=== PATIENT | male | born 1965 | race Caucasian/White ===

== ENCOUNTER 2018-06-11 06:00 | Inpatient (IN) | payer OTHER ==
[2018-06-07 11:23] LABS: BASOPHIL # 0.1 10^3/uL (0.0-0.1); BASOPHIL % 0.8 % (0.0-0.2); EOSINOPHIL # 0.7 10^3/uL (0.0-0.2); EOSINOPHIL % 8.8 % (0.0-5.0); LYMPHOCYTES % 35.3 % (24.0-44.0); MEAN CELL HGB 30.2 pg (26-34); MEAN CELL HGB CONCENTRATION 34.6 g/dL (33-37); MEAN CORP VOLUME 87.3 fL (78-100); MEAN PLATELET VOLUME 9.9 fL (7.8-11.0); MONOCYTES # 0.6 10^3/uL (0.3-0.8); MONOCYTES % 7.1 % (5.0-12.0); NEUTROPHIL # 3.9 10^3/uL (1.8-7.7); NEUTROPHILS % 46.7 % (41.0-85.0); RED CELL DISTRIBUTION WIDTH 13.4 % (11.5-14.5); WHITE BLOOD CELL 8.4 10^3/uL (4.5-11.0)
[2018-06-07 11:44] LABS: CALCIUM 9.3 mg/dL (8.4-10.5); CARBON DIOXIDE 28.6 mmol/L (20.0-32)
[2018-06-07 11:46] VITALS: BP 116/88
[2018-06-11] VITALS (46 sets, daily range): BP systolic 111–174; BP diastolic 77–100
[~2018-06-11] VITALS: Ht 175.3 cm; Wt 90.7 kg
[~2018-06-11 06:00] MED LIST: ACET500T73 PO; ALPR0.25 PO; CLON0.1T PO; CRAN400C PO; DOCU-123 PO; FURO-81 PO; GABA300C10 PO; GUAI-59 PO; INSU100V35 SUBCUT; INSU100V5 IJ; LEVE500T54 PO; LOPE1LIQ PO; LOPE2TAB27 PO; MAGN2400 PO; MEFOXIN ONE; MELO15TA24 PO; MOVIPREP POWDER PACKET PO STA; NA P133E2 RC; NS 100ML 100 ML IV ONE; OMEP20TA9 PO; RISP0.5T24 PO; SERT50TA PO; TIZA4TAB PO; [UNRECOGNIZED DRUG - CODE] PO; [UNRECOGNIZED DRUG - CODE] PO
[2018-06-11] MEDS ORDERED: CYCL10TA2 PO (06:31)
[2018-06-11] MEDS ORDERED: ERYT250C8 PO (06:31)
[2018-06-11] MEDS: LACTATED RINGERS 1,000 ML IV SCH (06:40)
[2018-06-11] MEDS ORDERED: LOVENOX SQ ONE (06:45)
[2018-06-11] MEDS ORDERED: NEOSTIGMINE ONE (06:46)
[2018-06-11] MEDS ORDERED: TORADOL ONE (06:46)
[2018-06-11] MEDS ORDERED: DECADRON ONE (06:46)
[2018-06-11] MEDS ORDERED: ZOFRAN ONE (06:46)
[2018-06-11] MEDS ORDERED: ZEMURON IV ONE (06:46)
[2018-06-11] MEDS ORDERED: DIPRIVAN IV ONE (06:47)
[2018-06-11] MEDS ORDERED: SUBLIMAZE ONE (06:47)
[2018-06-11] MEDS ORDERED: DILAUDID ONE (06:47)
[2018-06-11] MEDS ORDERED: VERSED ONE (06:48)
[2018-06-11] MEDS ORDERED: LIDOCAINE 2% VIAL ONE (06:48)
[2018-06-11] MEDS ORDERED: SODIUM CHLORIDE IR ONE (07:00)
[2018-06-11] MEDS ORDERED: SENSORCAINE-MPF 0.25% VIAL ONE (07:01)
[2018-06-11] MEDS ORDERED: WATER ONE ×4 (07:01→11:04)
[2018-06-11] MEDS ORDERED: TRANDATE IV ONE (07:22)
[2018-06-11] MEDS ORDERED: SODIUM CHLORIDE IRR BAG 1,000 ML ONE (08:41)
[2018-06-11] MEDS ORDERED: NS 100ML 100 ML IV ONE (10:34)
[2018-06-11] MEDS ORDERED: MEFOXIN ONE (10:34)
[2018-06-11] MEDS: MEFOXIN 1 GM in NS 100ML 100 ML IV SCH ×3 (12:00→23:28)
[2018-06-11] MEDS ORDERED: TYLENOL PO PRN ×2 (12:00→17:00)
[2018-06-11] MEDS ORDERED: MORPHINE SULFATE IV PRN (12:00)
[2018-06-11] MEDS ORDERED: NS 1000ML 1,000 ML ONE (12:08)
[2018-06-11] MEDS ORDERED: BENADRYL IV PRN (12:30)
[2018-06-11] MEDS ORDERED: ZOFRAN IV PRN (12:30)
[2018-06-11] MEDS ORDERED: PHENERGAN IV PRN (12:30)
[2018-06-11] MEDS: DILAUDID IV PRN ×2 (12:46→12:54)
[2018-06-11] MEDS: D5W-1/2 NS/KCL 20MEQ 1,000 ML IV SCH ×2 (15:36→20:49)
--- NOTE | 2018-06-11 16:15 | NUR ---
AMBULATION PATIENT ASSISTED OUT OF BED WITH ONE PERSON ASSIST. PATIENT AMBULATED TO [facility] WITH USE OF WALKER. GAIT WEAK AND UNSTEADY. PATIENT HAD RECTAL BLOOD DRAINAGE. PATIENT PASSED 200CC OF BLOOD. PATIENT STATED BEING DIZZY. BP 143/93 HR 103. PATIENT ASSISTED BACK INTO BED, HOB ELEVATED 30 DEGREES. CALL LIGHT WITHIN EASY REACH. DR. PIEDRA NOTIFIED OF AMT OF RECTAL BLOOD DRAINAGE. NO NEW ORDERS AT THIS TIME, MD STATED EXPECTED AFTER PATIENTS PROCEDURE.
[2018-06-11] MEDS ORDERED: ATIVAN IM PRN (17:00)
[2018-06-11] MEDS ORDERED: DEXTROSE 50%-WATER SYRINGE IV PRN (17:00)
--- NOTE | 2018-06-11 17:15 | PCM.HP ---
History of Present Illness Reason for Visit: S/P reversal of colostomy History of Present Illness Patient is a 52 PMH of DM, HTN, Seizure disorder, GERD, Generalized Anxiety Disorder, who presents s/p reversal of colostomy today with Dr. Aragon. Patient had unfortunate accident 2 years ago and sustained back/neck injury following a fall. Patient following accident was temporarily paraplegic and had Neck/Back surgery for symptoms. Patient underwent Colostomy 2/2 incontinence from injury. Over the last two years, patient has improved Neurologically and is even able to stand and ambulate with assistance. Patient underwent Exploratory Lap and reversal of Colostomy today with Dr. Aragon. Patient is in no distress during my evaluation @ bedside. He has pain but very mild, he feels it is currently well controlled. His vitals are stable. He has dressing over abdominal wounds previous ostomy. MAGNOLIA drain in place x 1. Medicine team consulted for medical management of DM, seizure disorder and Psychiatric Illness. Medications reconciled. 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 PLASMA: Periperal Neuropathy, Seizure, Other (Hx of Paraplegia (markedly improved) ) GI: GERD Hepatobiliary: Hep A/B/C Psychiatric: Anxiety, Other (chronic communication deficit, hx of violent behavior) Musculoskeletal: Chronic Low Back Pain Endocrine: Diabetes Past Surgical History: Other (Back/neck, Colostomy, Reversal of Colostomy, Ex lap, skin cancer removal x 2) Past Social History Smoke: No Alcohol: other (heavy drinker in past but quit 2 years ago) Drugs: Other (Hx of Smoking methamphetamine, quit 2-3 years ago) Travel Hx EBOLA RISK:Travel to/contact w: No Review of Systems Constitutional: No: Fever, Chills Eyes: No: Conjunctivae inflammation, Eyelid inflammation ENT: No: Nose discharge, Nose congestion Respiratory: No: Cough, Shortness of breath, SOB with excertion, Wheezing Cardiovascular: No: Chest Pain, Palpitations, Edema Gastrointestinal: Abdominal Pain; No: Nausea, Vomiting Genitourinary: No Hematuria, No Retention Musculoskeletal: neck pain, back pain Skin: Rash; No: Lesions, Jaundice, Bruising Neurological: No: Weakness, Numbness, Incoordination, Change in speech, Confusion, Seizures Allergies: Coded Allergies: No Known Allergies (Unverified , 06/07/18) Scheduled Alprazolam (Xanax), 1 TAB PO TID, (Reported) Clonidine Hcl (Clonidine Hcl), 1 TAB PO HS, (Reported) Cranberry (Cranberry), 450 MG PO BID, (Reported) Cyclobenzaprine Hcl (Flexeril), 1 TAB PO BID, (Reported) Docusate Sodium (Colace), 1 CAP PO BID, (Reported) Erythromycin Base (Erythromycin), 250 MG PO TID, (Reported) Furosemide (Lasix), 1 TAB PO DAILY, (Reported) Gabapentin (Gabapentin), 1 CAP PO HS, (Reported) Insulin Degludec (Tresiba), 20 UNITS SUBCUT DAILY24, (Reported) Insulin Regular, Human (Humulin R), 0 IJ QID, (Reported) Levetiracetam (Keppra), 1 TAB PO BID, (Reported) Meloxicam (Meloxicam), 1 TAB PO DAILY, (Reported) Omeprazole (Omeprazole), 1 TAB PO DAILY, (Reported) Psyllium Husk/Aspartame (Metamucil Sugar-Free Powder), 283 GM PO BID, (Reported) Risperidone (Risperdal), 1 TAB PO DAILY24, (Reported) Risperidone (Risperdal), 1.5 TAB PO HS, (Reported) Sertraline Hcl (Zoloft), 1 TAB PO DAILY, (Reported) Scheduled PRN Acetaminophen (Acetaminophen), 650 TAB PO Q4 PRN for FEVER, (Reported) Guaifenesin (Humaira-Tussin), 10 ML PO Q4 PRN for COUGH, (Reported) Loperamide Hcl (Loperamide), 2 MG PO PRN PRN for DIARRHEA, (Reported) Mag Hydrox/Al Hydrox/Simeth (Humaira-Lanta Liquid), 30 ML PO Q6 PRN for INDIGESTION , (Reported) Magnesium Hydroxide (Milk Of Magnesia), 30 MG PO DAILY24 PRN for CONSTIPATION, ( Reported) Na Phos,M-B/Na Phos,Di-Ba (Fleet Enema), 133 ML RC PRN PRN for CONSTIPATION, ( Reported) Tizanidine Hcl (Tizanidine Hcl), 0.5 TAB PO BID PRN for MUSCLE SPASM, (Reported) Discontinued Medications Loperamide HCl (Anti-Diarrheal), 2 MG PO RTPRN, (Reported) Discontinued Reason: Cancel VTE VTE Risk Total Score: 5 VTE Risk Score VTE Risk: Score 0-1 = Low Risk (Aggressive mobilization; early ambulation; no VTE prophylaxis required) Score 2: Moderate Risk (Intermittent/Pneumatic Compression Device OR Lovenox/Heparin/Coumadin) Score 3-4: High Risk (Intermittent/Pneumatic Compression Device AND Lovenox/Heparin/Coumadin) Score > or =5: Highest Risk (Intermittent/Pneumatic Compression Device AND Lovenox/Heparin/Coumadin) VTE VTE Present on Admission: Yes Currently receiving anticoagul: Yes VTE Risk Total Score: 5 Exam Vital Signs Vital Signs Date Time Temp Pulse Resp B/P (MAP) Pulse Ox O2 Delivery O2 Flow Rate FiO2 06/11/18 14:25 Nasal Cannula 2.00 06/11/18 14:15 87 16 142/88 (106) 99 06/11/18 14:00 98.7 98.7 06/11/18 13:46 28 General Appearance: Alert, Oriented X3, Cooperative, No acute distress HEENT: Atraumatic, PERRLA, EOMI, Mucous membr. moist/pink Respiratory: Clear to auscultation, Normal air movement Cardiovascular: Regular rate, Normal S1, Normal S2, No murmurs Abdominal: Soft, Other (mild tenderness to palpation umbilical area, dressing in place over ostomy, surgical incision, MAGNOLIA in place) Skin: No breakdown, Rash (Patient has dermatitis of scalp behind ears bilaterally), Lesions Neuro: Normal speech, Cranial nerves 3-12 NL Psych/Mental Status: Mental status NL, Mood NL Assessment/Plan Assessment/Plan Assessment/Plan Patient is a 52 PMH of DM, HTN, Seizure disorder, GERD, Generalized Anxiety Disorder, who presents s/p reversal of colostomy today with Dr. Aragon. Patient History: Diabetes mellitus G8 SISTER FH: brain tumor G8 BROTHER, FH: cancer 32 MOTHER, No known health problems 33 FATHER, Pacemaker 32 MOTHER, Relative being killed G8 SISTER, Plan 1. Hx of colostomy: reversal today with Dr. Aragon, surgery managing. Cont pain control, monitor MAGNOLIA output. Cont abx. 2. DM: holding home basal insulin. MDSSI to cover. 3. Seizure Disorder: cont keppra, Ativan PRN 4. Generalized Anxiety Disorder: restart SSRI, Ativan PRN. Holding Xanax. 5. GERD: cont PPI 6. PPx: Lovenox, PPI SHAUNNA,GONZALEZ R MD Jun 11, 2018 17:15
[2018-06-11] MEDS: HUMULIN R SQ SCH ×2 (17:30→21:55)
[2018-06-11 17:32] LABS: BASOPHIL % 0.1 % (0.0-0.2); HEMOGLOBIN 13.1 g/dL (13.9-16.3); LYMPHOCYTES # 0.8 10^3/uL (1.0-4.8); MEAN CELL HGB 30.5 pg (26-34); MEAN CELL HGB CONCENTRATION 34.5 g/dL (33-37); MEAN CORP VOLUME 88.4 fL (78-100); MEAN PLATELET VOLUME 9.6 fL (7.8-11.0); MONOCYTES # 1.2 10^3/uL (0.3-0.8); MONOCYTES % 7.2 % (5.0-12.0); NEUTROPHIL # 14.1 10^3/uL (1.8-7.7); NEUTROPHILS % 87.3 % (41.0-85.0); RED CELL DISTRIBUTION WIDTH 13.2 % (11.5-14.5); WHITE BLOOD CELL 16.2 10^3/uL (4.5-11.0)
[2018-06-11 17:48] LABS: CARBON DIOXIDE 18.9 mmol/L (20.0-32)
[2018-06-11 17:49] LABS: CALCIUM 8.1 mg/dL (8.4-10.5)
[2018-06-11 18:06] LABS: DIFFERENTIAL COMMENT NORMAL; LYMPHOCYTE 3 % (25-36); MONOCYTE 5 % (3-9); SEGMENTED NEUTROPHILS 92 % (31-76)
--- NOTE | 2018-06-11 19:20 | NUR ---
REPORT GIVEN TO ONCOMING SHIFT.
--- NOTE | 2018-06-11 19:20 | NUR ---
RECEIVED PATIENT REPORT FROM HALIE ZNUIGA. PT ON SUPINE POSITION WITH HOB AT 20-25 DEGREES ELEVATION. ASSUMED CARE
[2018-06-11] MEDS: NORCO 5MG PO PRN (20:50)
[2018-06-11] MEDS: RISPERDAL PO SCH (20:51)
[2018-06-11] MEDS: KEPPRA PO SCH (20:51)
[2018-06-11] MEDS: REGLAN IV PRN (23:20)
[2018-06-11] MEDS: GENASYME PO PRN (23:20)
[2018-06-12] VITALS (77 sets, daily range): BP systolic 87–146; BP diastolic 59–87
--- NOTE | 2018-06-12 03:30 | NUR ---
BLOODY STOOL WITH CLOTS SMALL TO MODERATE AMOUNT. PT REQUESTED TO USE BEDSIDE COMMODE. ASSISTED ACCORDINGLY. MARKED BODY MALAISE. SKIN PALLOR. ASSISTED PT BACK TO BED. ABDOMEN SOFT, NON DISTENDED. PT DENIED ANY PAIN. DRESSINGS DRY AND INTACT. MAGNOLIA INTACT & DRAINING SANGUINOUS FLUID.
[2018-06-12] MEDS: D5W-1/2 NS/KCL 20MEQ 1,000 ML IV SCH ×3 (03:58→21:56)
[2018-06-12] MEDS: REGLAN IV PRN ×2 (05:10→12:36)
[2018-06-12] MEDS: GENASYME PO PRN (05:10)
[2018-06-12] MEDS: MEFOXIN 1 GM in NS 100ML 100 ML IV SCH (05:27)
[2018-06-12 05:29] LABS: BASOPHIL % 0.1 % (0.0-0.2); HEMOGLOBIN 11.2 g/dL (13.9-16.3); LYMPHOCYTES # 1.6 10^3/uL (1.0-4.8); LYMPHOCYTES % 12.3 % (24.0-44.0); MEAN CELL HGB 30.6 pg (26-34); MEAN CELL HGB CONCENTRATION 34.3 g/dL (33-37); MEAN CORP VOLUME 89.3 fL (78-100); MEAN PLATELET VOLUME 9.6 fL (7.8-11.0); MONOCYTES # 1.2 10^3/uL (0.3-0.8); MONOCYTES % 9.6 % (5.0-12.0); NEUTROPHILS % 77.7 % (41.0-85.0); RED CELL DISTRIBUTION WIDTH 13.3 % (11.5-14.5); WHITE BLOOD CELL 12.9 10^3/uL (4.5-11.0)
[2018-06-12 05:57] LABS: CALCIUM 8.3 mg/dL (8.4-10.5); CARBON DIOXIDE 23.6 mmol/L (20.0-32)
--- NOTE | 2018-06-12 06:12 | NUR ---
TELEPHONE CALL FROM DR PIEDRA UPDATES GIVEN RE: PATIENT- HAS BEEN NAUSEOUS, MAGNOLIA DRAINS 135, HR FLUCTUATES TO ST 110, GOOD URINE OUTPUT 900 ML THIS SHIFT, BP WNL. AFEBRILE. NO NEW ORDERS RECEIVED.
--- NOTE | 2018-06-12 06:21 | NUR ---
AM LAB RESULTS RELAYED TO DR PIEDRA NO NEW ORDERS MADE
[2018-06-12] MEDS: LACTATED RINGERS 1,000 ML IV SCH (06:45)
--- NOTE | 2018-06-12 06:45 | OPH ---
DATE OF SURGERY: 06/11/2018 PREOPERATIVE DIAGNOSIS: Colostomy status in situ. POSTOPERATIVE DIAGNOSES: Incomplete bowel prep, colostomy status in situ, status post colonoscopy with healthy appearing colon. SURGEON: Neal Aragon DO TRAFFIC ADMINISTRATOR: OR staff. ANESTHESIA: General by Jason Tapia CRNA, plus some local used on the field as well as TAP block. PROCEDURES PERFORMED: 1. Laparoscopy converted to exploratory laparotomy with open reversal of colostomy. 2. Intraoperative colonoscopy. SPECIMENS: End colostomy stump to path. ESTIMATED BLOOD LOSS: 59 mL. COUNTS: At the completion of the case, counts were correct per OR staff. DESCRIPTION OF PROCEDURE: The patient is a very affable 52-year-old male, known from previous evaluation. Prior to procedure, informed consent was obtained. At time of procedure, he was taken to the operative suite and placed in supine position. After timeout was completed, general anesthesia was obtained. Nelson catheter was inserted by the nursing service. He was repositioned in low lithotomy position. Colostomy stump is cleaned and was oversewn with 2-0 Vicryl suture. Next, his abdomen was prepped and draped in normal fashion. Local was used to anesthetize supraumbilical midline incision created. A 5 mm trocar was introduced into the abdomen with Endo camera visualization. Once in the abdomen, pneumoperitoneum was induced to the level of 14 mmHg. Next, under camera visualization, a 5-mm trocar was placed inferiorly in the midline. Attention was directed towards the left lower quadrant site of colostomy and it appears what was initially believed to be a diverting loop colostomy, as the Fred's pouch has an obvious staple line on the proximal aspect. Intraoperatively adhesions were identified and were taken down using sharp dissection and electrocautery. The camera was removed and the skin was incised circumferentially around the colostomy site and dissected down to the level of the fascia and the stump was entered and brought to visualization in the abdomen due to the difficulty with mobilizing the proximal aspect of the distal limb emerging to midline as indicated. Trocars were removed. A generous midline incision was created. Electrocautery was used to dissect down the level of the fascia, which was opened in normal fashion. Once in the abdomen, the two ends were brought towards the midline and exposed. The colostomy stump was divided using 75 mm GI stapler. It turns out to be adequate mobilization towards the medial aspect and the 2 ends are loosely approximated with 2-0 GI silk. Enterotomy was created in each limb [id number], functional end-to-end anastomosis was created in the two limbs of sigmoid colon using 75 mm GI stapler. This completed the mucosal repair with a running 4-0 Vicryl suture. The seromuscular was closed with interrupted 2-0 GI silk. The staple lines were supported each end with 2-0 GI silk. The abdominal contents were inspected. They appeared to be grossly normal. The patient remains in lithotomy. An intraoperative colonoscopy was performed. With adequate irrigation in the abdomen, colonoscopy was performed. There was noted to be some retained stool, which was allowed to be irrigated with the colonoscope and passed distally. Subsequently, the scope was advanced proximally through the anastomosis, which showed no signs of leak to the level of cecum. The quality of prep was good. Once cecum was visualized, camera was slowly withdrawn to facility visualization of the ascending colon, hepatic flexure, transverse colon, splenic flexure and descending colon and sigmoid. The anastomosis appears to be patent. There are no signs of leak and there was noted to be minimal diverticular disease further distally. Solid stool that was identified in the distal aspect was irrigated to allow pass distally. At level of 5 cm, camera was retroflexed and reinserted. Anal verge was visualized, within normal limits. Colonoscope was removed after decompression of the colon. Surgeon re-gowned and gloved and returned to field. Due to poor visualization of the hepatic flexure was palpated. The right colon was noted to be slightly atypical in its location, slightly mobilized in midline; however, the terminal ileum, cecum appeared healthy. There were no signs of appendicitis identified. The liver was palpated and noted to have no significant disease based on palpatory exam. There was impaired palpation of the gallbladder secondary to expansion of the colon. The stomach was palpated. An OG tube was identified in place. After palpation of the colon and the right colon and the hepatic flexure, small bowel was run proximally to the level LOT,proximally, and distally to ileocecal valve. The anastomosis inspected and the mesenteric defects repaired with a 2-0 Vicryl suture. The abdominal cavity was copiously irrigated and final inspection was made and subsequently closure was pursued. Fascia on the colostomy site was closed with interrupted PDS sutures. The midline after irrigation was completed a drain was passed out to the right side and stab incision was secured with nylon sutures placed in the right side of the colon to the pelvis. Midline fascia was closed with combination of running looped PDS and interrupted #1 PDS pop offs. Seprafilm was placed deep to and anterior to the omentum prior to closure. Once the fascia was closed in the midline, the midline incision was loosely approximated with stainless steel surgical clips. Once the clips were placed in the left lower quadrant incision dressings were applied, drapes removed. The patient currently remains in the OR under the care of Department of Anesthesia for TAP block and awakening from anesthesia. Neal Aragon DO DR: OTIS/alex JOB# [id number] CC: Adam RONDON
[2018-06-12] MEDS: HUMULIN R SQ SCH ×4 (07:30→21:18)
[2018-06-12] MEDS: MORPHINE SULFATE IV PRN ×3 (07:48→19:33)
--- NOTE | 2018-06-12 08:50 | PRM.PN ---
Subjective Subjective Date: Jun 12, 2018 Time: 08:47 Subjective Not feeling great. More nauseated this AM. Started last night and has been progressive. No report of vomiting however. Pain is present but controlled at a 4. Patient History: Diabetes mellitus G8 SISTER FH: brain tumor G8 BROTHER, FH: cancer 32 MOTHER, No known health problems 33 FATHER, Pacemaker 32 MOTHER, Relative being killed G8 SISTER, VTE VTE Risk Total Score: 5 VTE Risk Score VTE Risk: Score 0-1 = Low Risk (Aggressive mobilization; early ambulation; no VTE prophylaxis required) Score 2: Moderate Risk (Intermittent/Pneumatic Compression Device OR Lovenox/Heparin/Coumadin) Score 3-4: High Risk (Intermittent/Pneumatic Compression Device AND Lovenox/Heparin/Coumadin) Score > or =5: Highest Risk (Intermittent/Pneumatic Compression Device AND Lovenox/Heparin/Coumadin) Review of Systems Constitutional: No: Fever, Chills Eyes: No: Conjunctivae inflammation, Eyelid inflammation ENT: No: Nose discharge, Nose congestion Respiratory: No: Cough, Shortness of breath, SOB with excertion, Wheezing Cardiovascular: No: Chest Pain, Palpitations, Edema Gastrointestinal: Nausea, Abdominal Pain; No: Vomiting Genitourinary: No Hematuria, No Retention Musculoskeletal: neck pain, back pain Skin: Rash; No: Lesions, Jaundice, Bruising Neurological: No: Weakness, Numbness, Incoordination, Change in speech, Confusion, Seizures Allergies: Coded Allergies: No Known Allergies (Unverified , 06/07/18) Scheduled Alprazolam (Xanax), 1 TAB PO TID, (Reported) Clonidine Hcl (Clonidine Hcl), 1 TAB PO HS, (Reported) Cranberry (Cranberry), 450 MG PO BID, (Reported) Cyclobenzaprine Hcl (Flexeril), 1 TAB PO BID, (Reported) Docusate Sodium (Colace), 1 CAP PO BID, (Reported) Erythromycin Base (Erythromycin), 250 MG PO TID, (Reported) Furosemide (Lasix), 1 TAB PO DAILY, (Reported) Gabapentin (Gabapentin), 1 CAP PO HS, (Reported) Insulin Degludec (Tresiba), 20 UNITS SUBCUT DAILY24, (Reported) Insulin Regular, Human (Humulin R), 0 IJ QID, (Reported) Levetiracetam (Keppra), 1 TAB PO BID, (Reported) Meloxicam (Meloxicam), 1 TAB PO DAILY, (Reported) Omeprazole (Omeprazole), 1 TAB PO DAILY, (Reported) Psyllium Husk/Aspartame (Metamucil Sugar-Free Powder), 283 GM PO BID, (Reported) Risperidone (Risperdal), 1 TAB PO DAILY24, (Reported) Risperidone (Risperdal), 1.5 TAB PO HS, (Reported) Sertraline Hcl (Zoloft), 1 TAB PO DAILY, (Reported) Scheduled PRN Acetaminophen (Acetaminophen), 650 TAB PO Q4 PRN for FEVER, (Reported) Guaifenesin (Humaira-Tussin), 10 ML PO Q4 PRN for COUGH, (Reported) Loperamide Hcl (Loperamide), 2 MG PO PRN PRN for DIARRHEA, (Reported) Mag Hydrox/Al Hydrox/Simeth (Humaira-Lanta Liquid), 30 ML PO Q6 PRN for INDIGESTION , (Reported) Magnesium Hydroxide (Milk Of Magnesia), 30 MG PO DAILY24 PRN for CONSTIPATION, ( Reported) Na Phos,M-B/Na Phos,Di-Ba (Fleet Enema), 133 ML RC PRN PRN for CONSTIPATION, ( Reported) Tizanidine Hcl (Tizanidine Hcl), 0.5 TAB PO BID PRN for MUSCLE SPASM, (Reported) Discontinued Medications Loperamide HCl (Anti-Diarrheal), 2 MG PO RTPRN, (Reported) Discontinued Reason: Cancel Objective Vitals and I/O Vital Sign - Last 24 Hours 06/11/18 06/11/18 06/11/18 06/11/18 12:15 12:15 12:24 12:29 Temp 98.5 98.5 98.5 98.5 98.5 98.5 Pulse 71 70 76 Resp 18 18 18 B/P (MAP) 150/96 (114) 144/94 (111) 140/90 (107) Pulse Ox 100 100 100 O2 Delivery Non-Rebreather Non-Rebreather Room Air O2 Flow Rate 10 10 5 06/11/18 06/11/18 06/11/18 06/11/18 12:40 12:50 12:59 13:10 Temp 98.8 97.7 98.4 98.7 98.8 97.7 98.4 98.7 Pulse 83 79 81 79 Resp 18 18 18 18 B/P (MAP) 147/97 (114) 140/88 (105) 148/90 (109) 145/96 (112) Pulse Ox 98 96 97 99 O2 Delivery Nasal Canula Nasal Canula Nasal Canula Nasal Canula O2 Flow Rate 2 2 2 2 06/11/18 06/11/18 06/11/18 06/11/18 13:46 13:48 13:49 14:00 Temp 98.7 98.7 Pulse 100 78 Resp 10 10 16 16 B/P (MAP) 146/96 (113) 140/93 (109) Pulse Ox 79 79 98 99 O2 Delivery Nasal Cannula O2 Flow Rate 2.00 FiO2 28 06/11/18 06/11/18 06/11/18 06/11/18 14:15 14:25 14:30 14:45 Pulse 87 84 87 Resp 16 12 13 B/P (MAP) 142/88 (106) 141/88 (105) 145/92 (109) Pulse Ox 99 99 99 O2 Delivery Nasal Cannula O2 Flow Rate 2.00 06/11/18 06/11/18 06/11/18 06/11/18 15:00 15:15 15:30 15:45 Pulse 82 87 98 84 Resp 12 16 16 16 B/P (MAP) 145/93 (110) 145/87 (106) 165/91 (115) 134/85 (101) Pulse Ox 100 100 100 100 06/11/18 06/11/18 06/11/18 06/11/18 16:00 16:15 16:30 16:45 Pulse 81 93 79 78 Resp 16 10 10 10 B/P (MAP) 131/79 (96) 144/97 (113) 139/87 (104) 134/92 (106) Pulse Ox 100 100 100 100 06/11/18 06/11/18 06/11/18 06/11/18 17:00 17:10 17:15 17:30 Pulse 96 102 105 96 Resp 21 16 15 17 B/P (MAP) 139/90 (106) 143/93 (110) 111/80 (90) 132/85 (101) Pulse Ox 97 97 92 93 06/11/18 06/11/18 06/11/18 3/26/19 17:45 18:00 18:15 18:30 Pulse 98 100 100 97 Resp 16 15 17 12 Pulse Ox 94 94 94 93 06/11/18 06/11/18 06/11/18 06/11/18 18:45 19:00 19:00 19:04 Temp 98.5 98.5 Pulse 97 98 91 Resp 13 14 12 B/P (MAP) 133/86 (102) Pulse Ox 95 96 97 O2 Delivery Nasal Cannula O2 Flow Rate 2.00 06/11/18 06/11/18 06/11/18 06/11/18 19:15 19:30 19:45 20:00 Pulse 90 92 88 96 Resp 13 14 11 16 B/P (MAP) 124/81 (95) 127/79 (95) 128/83 (98) 126/83 (97) Pulse Ox 93 94 94 97 06/11/18 06/11/18 06/11/18 06/11/18 20:15 20:30 20:45 21:00 Pulse 99 96 91 104 Resp 14 12 12 15 B/P (MAP) 122/84 (97) 124/83 (97) 125/82 (96) 121/84 (96) Pulse Ox 93 94 94 94 06/11/18 06/11/18 06/11/18 06/11/18 21:15 21:30 21:42 21:45 Pulse 101 101 90 105 Resp 13 16 18 16 B/P (MAP) 127/85 (99) 118/84 (95) 123/85 (98) Pulse Ox 94 95 94 94 O2 Delivery Nasal Cannula FiO2 21 06/11/18 06/11/18 06/11/18 06/11/18 22:00 22:15 22:30 22:45 Pulse 103 102 108 110 Resp 12 12 16 16 B/P (MAP) 128/81 (97) 127/86 (100) 124/83 (97) 117/82 (94) Pulse Ox 94 96 95 93 06/11/18 06/11/18 06/11/18 06/11/18 23:00 23:00 23:15 23:30 Pulse 103 108 119 Resp 22 14 12 B/P (MAP) 121/77 (92) 120/77 (91) 128/81 (97) Pulse Ox 93 94 95 O2 Delivery Room Air 06/11/18 06/12/18 06/12/18 06/12/18 23:46 00:00 00:15 00:30 Temp 98.4 98.4 Pulse 126 108 107 108 Resp 21 14 14 14 B/P (MAP) 148/89 (108) 130/87 (101) 120/79 (93) 125/82 (96) Pulse Ox 96 95 95 96 06/12/18 06/12/18 06/12/18 06/12/18 00:45 01:00 01:15 01:30 Pulse 110 109 109 109 Resp 14 13 15 15 B/P (MAP) 122/81 (95) 116/77 (90) 125/84 (98) 125/80 (95) Pulse Ox 94 95 96 95 06/12/18 06/12/18 06/12/18 06/12/18 01:45 02:00 02:15 02:27 Pulse 109 112 113 108 Resp 13 15 16 18 B/P (MAP) 119/79 (92) 123/77 (92) 130/84 (99) 146/85 (105) Pulse Ox 97 97 97 99 06/12/18 06/12/18 06/12/18 06/12/18 02:30 02:38 02:45 03:00 Pulse 118 113 112 107 Resp 21 18 17 13 B/P (MAP) 87/64 (72) 118/82 (94) 129/83 (98) 125/79 (94) Pulse Ox 96 97 98 99 06/12/18 06/12/18 06/12/18 06/12/18 03:15 03:30 03:45 04:00 Pulse 109 106 113 Resp 15 13 17 B/P (MAP) 122/81 (95) 127/80 (96) 130/75 (93) Pulse Ox 99 100 93 O2 Delivery Room Air 06/12/18 06/12/18 06/12/18 06/12/18 04:00 04:15 04:30 04:45 Temp 98.7 98.7 Pulse 108 111 109 102 Resp 16 16 16 13 B/P (MAP) 127/79 (95) 135/78 (97) 127/78 (94) 127/72 (90) Pulse Ox 95 95 94 95 06/12/18 06/12/18 06/12/18 06/12/18 05:00 05:15 05:30 05:45 Pulse 100 101 120 112 Resp 12 14 22 25 B/P (MAP) 136/78 (97) 130/78 (95) 118/74 (89) 127/85 (99) Pulse Ox 96 96 97 94 06/12/18 06/12/18 06/12/18 06/12/18 06:00 06:30 06:45 07:00 Pulse 107 105 102 107 Resp 16 14 15 14 B/P (MAP) 133/82 (99) 113/78 (90) 126/72 (90) 126/74 (91) Pulse Ox 95 96 93 95 06/12/18 06/12/18 06/12/18 06/12/18 07:15 07:30 07:45 08:00 Pulse 106 117 106 Resp 16 15 13 B/P (MAP) 126/73 (90) 112/81 (91) 115/69 (84) Pulse Ox 93 92 93 O2 Delivery Room Air 06/12/18 06/12/18 06/12/18 08:01 08:15 08:30 Temp 97.7 97.7 Pulse 114 109 108 Resp 18 14 14 B/P (MAP) 129/77 (94) 111/65 (80) 114/64 (81) Pulse Ox 96 94 92 Intake and Output 06/11/18 06/11/18 06/12/18 15:00 23:00 07:00 Intake Total 39546 ml 823 ml 1228 ml Output Total 250 ml 880 ml 1035 ml Balance 53812 ml -57 ml 193 ml General: Alert, Oriented X3, Cooperative, No acute distress HEENT: Atraumatic, PERRLA, EOMI, Mucous membr. moist/pink Lungs: Clear to auscultation, Normal air movement Heart: Regular rate, Normal S1, Normal S2, No murmurs Abdomen: Soft, Other (mild tenderness to palpation umbilical area, dressing in place over ostomy, surgical incision, MAGNOLIA in place) Neuro: Normal speech, Cranial nerves 3-12 NL Psych/Mental Status: Mental status NL, Mood NL All Results(Lab/Rad) Laboratory Tests Test 06/11/18 17:00 06/11/18 17:30 06/11/18 17:33 06/12/18 05:00 White Blood Count 16.2 10^3/uL 12.9 10^3/uL Red Blood Count 4.30 10^6/uL 3.66 10^6/uL Hemoglobin 13.1 g/dL 11.2 g/dL Hematocrit 38.0 % 32.7 % Mean Corpuscular Volume 88.4 fL 89.3 fL Mean Corpuscular Hemoglobin 30.5 pg 30.6 pg Mean Corpuscular Hemoglobin Concent 34.5 g/dL 34.3 g/dL Red Cell Distribution Width 13.2 % 13.3 % Platelet Count 115 10^3/uL 146 10^3/uL Mean Platelet Volume 9.6 fL 9.6 fL Neutrophils (%) (Auto) 87.3 % 77.7 % Lymphocytes (%) (Auto) 5.0 % 12.3 % Monocytes (%) (Auto) 7.2 % 9.6 % Neutrophils # (Auto) 14.1 10^3/uL 10.0 10^3/uL Lymphocytes # (Auto) 0.8 10^3/uL 1.6 10^3/uL Monocytes # (Auto) 1.2 10^3/uL 1.2 10^3/uL Absolute Immature Granulocyte (auto 0.07 10^3 u/L 0.04 10^3 u/L Eosinophils % 0.0 % 0.0 % Basophils % 0.1 % 0.1 % Basophils # 0.0 10^3/uL 0.0 10^3/uL Eosinophil Count 0.0 10^3/uL 0.0 10^3/uL Percent Immature Gran (Cell Imm) 0.40 % 0.30 % Sodium Level 134 mmol/L 136 mmol/L Potassium Level 4.6 mmol/L 4.8 mmol/L Chloride Level 102.0 mmol/L 102.0 mmol/L Carbon Dioxide Level 18.9 mmol/L 23.6 mmol/L Anion Gap 17.7 15.2 Blood Urea Nitrogen 9 mg/dL 10 mg/dL Creatinine 0.81 mg/dL 0.96 mg/dL Estimated GFR () 120.2 98.8 BUN/Creatinine Ratio 11.0 10.0 Glucose Level 315 mg/dL 280 mg/dL Calcium Level 8.1 mg/dL 8.3 mg/dL Total Bilirubin 0.8 mg/dL 0.8 mg/dL Aspartate Amino Transf (AST/SGOT) 26 U/L 19 U/L Alanine Aminotransferase (ALT/SGPT) 33 U/L 30 U/L Alkaline Phosphatase 114 U/L 97 U/L Total Protein 6.3 g/dL 6.2 g/dL Albumin 3.0 g/dL 2.8 g/dL Globulin 3.3 3.4 Differential Total Cells Counted 100 #CELLS Segmented Neutrophils 92 % Lymphocytes 3 % Monocytes 5 % Differential Comment NORMAL Platelet Estimate ADEQUATE Platelet Morphology NORMAL Blood Morphology Comment NORMAL MORPHOLOGY Current Medications Medications (Trade) Dose Ordered Sig/Escobar Route PRN Reason Start Time Stop Time Status Last Admin Dose Admin Enoxaparin Sodium (Lovenox) 40 mg OT ONCE SQ 06/11/18 06:45 06/11/18 16:12 DC 06/11/18 06:53 Cefoxitin Sodium (Mefoxin) 1 gm STK-MED ONCE .ROUTE 06/11/18 05:55 06/11/18 05:56 DC Sodium Chloride 100 ml @ ud STK-MED ONCE IV 06/11/18 05:55 06/11/18 05:57 DC Dexamethasone Sodium Phosphate (Decadron) 4 mg STK-MED ONCE .ROUTE 06/11/18 06:46 06/11/18 06:47 DC Neostigmine Methylsulfate (Neostigmine) 10 mg STK-MED ONCE .ROUTE 06/11/18 06:46 06/11/18 06:48 DC Ondansetron HCl (Zofran) 4 mg STK-MED ONCE .ROUTE 06/11/18 06:46 06/11/18 06:48 DC Ketorolac Tromethamine (Toradol) 30 mg STK-MED ONCE .ROUTE 06/11/18 06:46 06/11/18 06:48 DC Rocuronium Ennis (Zemuron) 100 mg STK-MED ONCE IV 06/11/18 06:46 06/11/18 06:48 DC Hydromorphone HCl (Dilaudid) 2 mg STK-MED ONCE .ROUTE 06/11/18 06:47 06/11/18 06:48 DC Fentanyl Citrate (Sublimaze) 100 mcg STK-MED ONCE .ROUTE 06/11/18 06:47 06/11/18 06:49 DC Propofol (Diprivan) 200 mg STK-MED ONCE IV 06/11/18 06:47 06/11/18 06:49 DC Midazolam HCl (Versed) 1 mg STK-MED ONCE .ROUTE 06/11/18 06:48 06/11/18 06:49 DC Lidocaine HCl (Lidocaine 2% Vial) 500 mg STK-MED ONCE .ROUTE 06/11/18 06:48 06/11/18 06:50 DC Sodium Chloride (Sodium Chloride) 1,000 ml STK-MED ONCE IR 06/11/18 07:00 06/11/18 07:02 DC Sterile Water (Water) 1,000 ml STK-MED ONCE .ROUTE 06/11/18 07:01 06/11/18 07:02 DC Bupivacaine HCl (Sensorcaine-Mpf 0.25% Vial) 2.5 mg STK-MED ONCE .ROUTE 06/11/18 07:01 06/11/18 07:02 DC Labetalol HCl (Trandate) 20 mg STK-MED ONCE IV 06/11/18 07:22 06/11/18 07:23 DC Sodium Chloride 1,000 ml @ ud STK-MED ONCE .ROUTE 06/11/18 08:41 06/11/18 08:42 DC Sterile Water (Water) 1,000 ml STK-MED ONCE .ROUTE 06/11/18 09:30 06/11/18 09:32 DC Sterile Water (Water) 1,000 ml STK-MED ONCE .ROUTE 06/11/18 09:46 06/11/18 09:47 DC Cefoxitin Sodium (Mefoxin) 1 gm STK-MED ONCE .ROUTE 06/11/18 10:34 06/11/18 10:35 DC Sodium Chloride 100 ml @ ud STK-MED ONCE IV 06/11/18 10:34 06/11/18 10:35 DC Sterile Water (Water) 1,000 ml STK-MED ONCE .ROUTE 06/11/18 11:04 06/11/18 11:05 DC Morphine Sulfate (Morphine Sulfate) 1 mg Q4H PRN IV PAIN 4 - 6 06/11/18 12:00 07/11/18 11:59 Morphine Sulfate (Morphine Sulfate) 3 mg Q3H PRN IV PAIN 7 - 10 06/11/18 12:00 07/11/18 11:59 06/12/18 07:48 Acetaminophen/ Hydrocodone Bitart ([place] 5mg) 1 ea Q4H PRN PO PAIN 4 - 6 06/11/18 12:00 07/11/18 11:59 06/11/18 20:50 Acetaminophen (Tylenol) 650 mg Q6 PRN PO FEVER/MILD PAIN 06/11/18 12:00 07/11/18 11:59 Pantoprazole Sodium (Protonix Iv) 40 mg DAILY IV 06/12/18 09:00 07/12/18 08:59 Simethicone (Genasyme) 80 mg Q4 PRN PO GAS/BLOATING 06/11/18 12:00 07/11/18 11:59 06/12/18 05:10 Enoxaparin Sodium (Lovenox) 40 mg DAILY@0830 SQ 06/12/18 08:30 07/12/18 08:29 Potassium Chloride/Dextrose/ Sod Cl 1,000 ml @ 125 mls/hr Q8H IV 06/11/18 11:58 07/11/18 11:57 06/11/18 20:49 Hydromorphone HCl (Dilaudid) 1 mg Q4H PRN IV PAIN 7 - 10 06/11/18 12:00 07/11/18 11:59 Cefoxitin Sodium 1 gm/Sodium Chloride 100 ml @ 100 mls/hr Q6 IV 06/11/18 12:00 06/12/18 07:17 DC 06/12/18 05:27 Sodium Chloride 1,000 ml @ [facility] ONCE .ROUTE 06/11/18 12:08 06/11/18 12:09 DC Hydromorphone HCl (Dilaudid) 0.2 mg Q5MIN PRN IV PAIN 1 - 3 06/11/18 12:30 06/11/18 16:06 DC 06/11/18 12:54 Ondansetron HCl (Zofran) 4 mg PRN PRN IV nv 06/11/18 12:30 06/11/18 16:13 DC Promethazine HCl (Phenergan) 6.25 mg PRN PRN IV NAUSEA / VOMITING 06/11/18 12:30 06/11/18 16:13 DC Diphenhydramine HCl (Benadryl) 25 mg Q5MIN PRN IV NAUSEA / VOMITING 06/11/18 12:30 06/11/18 16:06 DC Acetaminophen (Tylenol) 325 mg Q4 PRN PO FEVER 06/11/18 17:00 07/11/18 16:59 Levetiracetam (Keppra) 500 mg BID PO 06/11/18 21:00 07/11/18 20:59 06/11/18 20:51 Sertraline HCl (Zoloft) 50 mg DAILY PO 06/12/18 09:00 07/12/18 08:59 Risperidone (Risperdal) 0.5 mg DAILY24 PO 06/12/18 09:00 07/12/18 08:59 Risperidone (Risperdal) 0.75 mg HS PO 06/11/18 21:00 07/11/18 20:59 06/11/18 20:51 Insulin Human Regular (Humulin R) Give 30 minutes before meal ACHS SQ 06/11/18 17:30 07/11/18 17:29 06/11/18 21:55 Dextrose (Dextrose 50%-Water Syringe) 25 ml STAT PRN IV HYPOGLYCEMIA 06/11/18 17:00 07/11/18 16:59 Lorazepam (Ativan) 1 mg Q4HR PRN IM AGITATION 06/11/18 17:00 07/11/18 16:59 Metoclopramide HCl (Reglan) 10 mg Q6 PRN IV NAUSEA / VOMITING 06/11/18 19:00 07/11/18 18:59 06/12/18 05:10 Course Sepsis Screening Results: Posi: NEGATIVE Sepsis Qualifier/Stage: NO DEFINITE RISK Vitals & review Data Vital Sign - Last 24 Hours 06/11/18 06/11/18 06/11/18 06/11/18 12:15 12:15 12:24 12:29 Temp 98.5 98.5 98.5 98.5 98.5 98.5 Pulse 71 70 76 Resp 18 18 18 B/P (MAP) 150/96 (114) 144/94 (111) 140/90 (107) Pulse Ox 100 100 100 O2 Delivery Non-Rebreather Non-Rebreather Room Air O2 Flow Rate 10 10 5 06/11/18 06/11/18 06/11/18 06/11/18 12:40 12:50 12:59 13:10 Temp 98.8 97.7 98.4 98.7 98.8 97.7 98.4 98.7 Pulse 83 79 81 79 Resp 18 18 18 18 B/P (MAP) 147/97 (114) 140/88 (105) 148/90 (109) 145/96 (112) Pulse Ox 98 96 97 99 O2 Delivery Nasal Canula Nasal Canula Nasal Canula Nasal Canula O2 Flow Rate 2 2 2 2 06/11/18 06/11/18 06/11/18 06/11/18 13:46 13:48 13:49 14:00 Temp 98.7 98.7 Pulse 100 78 Resp 10 10 16 16 B/P (MAP) 146/96 (113) 140/93 (109) Pulse Ox 79 79 98 99 O2 Delivery Nasal Cannula O2 Flow Rate 2.00 FiO2 28 06/11/18 06/11/18 06/11/18 06/11/18 14:15 14:25 14:30 14:45 Pulse 87 84 87 Resp 16 12 13 B/P (MAP) 142/88 (106) 141/88 (105) 145/92 (109) Pulse Ox 99 99 99 O2 Delivery Nasal Cannula O2 Flow Rate 2.00 06/11/18 06/11/18 06/11/18 06/11/18 15:00 15:15 15:30 15:45 Pulse 82 87 98 84 Resp 12 16 16 16 B/P (MAP) 145/93 (110) 145/87 (106) 165/91 (115) 134/85 (101) Pulse Ox 100 100 100 100 06/11/18 06/11/18 06/11/18 06/11/18 16:00 16:15 16:30 16:45 Pulse 81 93 79 78 Resp 16 10 10 10 B/P (MAP) 131/79 (96) 144/97 (113) 139/87 (104) 134/92 (106) Pulse Ox 100 100 100 100 06/11/18 06/11/18 06/11/18 06/11/18 17:00 17:10 17:15 17:30 Pulse 96 102 105 96 Resp 21 16 15 17 B/P (MAP) 139/90 (106) 143/93 (110) 111/80 (90) 132/85 (101) Pulse Ox 97 97 92 93 06/11/18 06/11/18 06/11/18 06/11/18 17:45 18:00 18:15 18:30 Pulse 98 100 100 97 Resp 16 15 17 12 Pulse Ox 94 94 94 93 06/11/18 06/11/18 06/11/18 06/11/18 18:45 19:00 19:00 19:04 Temp 98.5 98.5 Pulse 97 98 91 Resp 13 14 12 B/P (MAP) 133/86 (102) Pulse Ox 95 96 97 O2 Delivery Nasal Cannula O2 Flow Rate 2.00 06/11/18 06/11/18 06/11/18 06/11/18 19:15 19:30 19:45 20:00 Pulse 90 92 88 96 Resp 13 14 11 16 B/P (MAP) 124/81 (95) 127/79 (95) 128/83 (98) 126/83 (97) Pulse Ox 93 94 94 97 06/11/18 06/11/18 06/11/18 06/11/18 20:15 20:30 20:45 21:00 Pulse 99 96 91 104 Resp 14 12 12 15 B/P (MAP) 122/84 (97) 124/83 (97) 125/82 (96) 121/84 (96) Pulse Ox 93 94 94 94 06/11/18 06/11/18 06/11/18 06/11/18 21:15 21:30 21:42 21:45 Pulse 101 101 90 105 Resp 13 16 18 16 B/P (MAP) 127/85 (99) 118/84 (95) 123/85 (98) Pulse Ox 94 95 94 94 O2 Delivery Nasal Cannula FiO2 21 06/11/18 06/11/18 06/11/18 06/11/18 22:00 22:15 22:30 22:45 Pulse 103 102 108 110 Resp 12 12 16 16 B/P (MAP) 128/81 (97) 127/86 (100) 124/83 (97) 117/82 (94) Pulse Ox 94 96 95 93 06/11/18 06/11/18 06/11/18 06/11/18 23:00 23:00 23:15 23:30 Pulse 103 108 119 Resp 22 14 12 B/P (MAP) 121/77 (92) 120/77 (91) 128/81 (97) Pulse Ox 93 94 95 O2 Delivery Room Air 06/11/18 06/12/18 06/12/18 06/12/18 23:46 00:00 00:15 00:30 Temp 98.4 98.4 Pulse 126 108 107 108 Resp 21 14 14 14 B/P (MAP) 148/89 (108) 130/87 (101) 120/79 (93) 125/82 (96) Pulse Ox 96 95 95 96 06/12/18 06/12/18 06/12/18 06/12/18 00:45 01:00 01:15 01:30 Pulse 110 109 109 109 Resp 14 13 15 15 B/P (MAP) 122/81 (95) 116/77 (90) 125/84 (98) 125/80 (95) Pulse Ox 94 95 96 95 06/12/18 06/12/18 06/12/18 06/12/18 01:45 02:00 02:15 02:27 Pulse 109 112 113 108 Resp 13 15 16 18 B/P (MAP) 119/79 (92) 123/77 (92) 130/84 (99) 146/85 (105) Pulse Ox 97 97 97 99 06/12/18 06/12/18 06/12/18 06/12/18 02:30 02:38 02:45 03:00 Pulse 118 113 112 107 Resp 21 18 17 13 B/P (MAP) 87/64 (72) 118/82 (94) 129/83 (98) 125/79 (94) Pulse Ox 96 97 98 99 06/12/18 06/12/18 06/12/18 06/12/18 03:15 03:30 03:45 04:00 Pulse 109 106 113 Resp 15 13 17 B/P (MAP) 122/81 (95) 127/80 (96) 130/75 (93) Pulse Ox 99 100 93 O2 Delivery Room Air 06/12/18 06/12/18 06/12/18 06/12/18 04:00 04:15 04:30 04:45 Temp 98.7 98.7 Pulse 108 111 109 102 Resp 16 16 16 13 B/P (MAP) 127/79 (95) 135/78 (97) 127/78 (94) 127/72 (90) Pulse Ox 95 95 94 95 06/12/18 06/12/18 06/12/18 06/12/18 05:00 05:15 05:30 05:45 Pulse 100 101 120 112 Resp 12 14 22 25 B/P (MAP) 136/78 (97) 130/78 (95) 118/74 (89) 127/85 (99) Pulse Ox 96 96 97 94 06/12/18 06/12/18 06/12/18 06/12/18 06:00 06:30 06:45 07:00 Pulse 107 105 102 107 Resp 16 14 15 14 B/P (MAP) 133/82 (99) 113/78 (90) 126/72 (90) 126/74 (91) Pulse Ox 95 96 93 95 06/12/18 06/12/18 06/12/18 06/12/18 07:15 07:30 07:45 08:00 Pulse 106 117 106 Resp 16 15 13 B/P (MAP) 126/73 (90) 112/81 (91) 115/69 (84) Pulse Ox 93 92 93 O2 Delivery Room Air 06/12/18 06/12/18 06/12/18 08:01 08:15 08:30 Temp 97.7 97.7 Pulse 114 109 108 Resp 18 14 14 B/P (MAP) 129/77 (94) 111/65 (80) 114/64 (81) Pulse Ox 96 94 92 Intake and Output 06/11/18 06/11/18 06/12/18 15:00 23:00 07:00 Intake Total 30320 ml 823 ml 1228 ml Output Total 250 ml 880 ml 1035 ml Balance 66673 ml -57 ml 193 ml Laboratory Tests Test 06/11/18 17:00 06/11/18 17:30 06/11/18 17:33 06/12/18 05:00 White Blood Count 16.2 10^3/uL 12.9 10^3/uL Red Blood Count 4.30 10^6/uL 3.66 10^6/uL Hemoglobin 13.1 g/dL 11.2 g/dL Hematocrit 38.0 % 32.7 % Mean Corpuscular Volume 88.4 fL 89.3 fL Mean Corpuscular Hemoglobin 30.5 pg 30.6 pg Mean Corpuscular Hemoglobin Concent 34.5 g/dL 34.3 g/dL Red Cell Distribution Width 13.2 % 13.3 % Platelet Count 115 10^3/uL 146 10^3/uL Mean Platelet Volume 9.6 fL 9.6 fL Neutrophils (%) (Auto) 87.3 % 77.7 % Lymphocytes (%) (Auto) 5.0 % 12.3 % Monocytes (%) (Auto) 7.2 % 9.6 % Neutrophils # (Auto) 14.1 10^3/uL 10.0 10^3/uL Lymphocytes # (Auto) 0.8 10^3/uL 1.6 10^3/uL Monocytes # (Auto) 1.2 10^3/uL 1.2 10^3/uL Absolute Immature Granulocyte (auto 0.07 10^3 u/L 0.04 10^3 u/L Eosinophils % 0.0 % 0.0 % Basophils % 0.1 % 0.1 % Basophils # 0.0 10^3/uL 0.0 10^3/uL Eosinophil Count 0.0 10^3/uL 0.0 10^3/uL Percent Immature Gran (Cell Imm) 0.40 % 0.30 % Sodium Level 134 mmol/L 136 mmol/L Potassium Level 4.6 mmol/L 4.8 mmol/L Chloride Level 102.0 mmol/L 102.0 mmol/L Carbon Dioxide Level 18.9 mmol/L 23.6 mmol/L Anion Gap 17.7 15.2 Blood Urea Nitrogen 9 mg/dL 10 mg/dL Creatinine 0.81 mg/dL 0.96 mg/dL Estimated GFR () 120.2 98.8 BUN/Creatinine Ratio 11.0 10.0 Glucose Level 315 mg/dL 280 mg/dL Calcium Level 8.1 mg/dL 8.3 mg/dL Total Bilirubin 0.8 mg/dL 0.8 mg/dL Aspartate Amino Transf (AST/SGOT) 26 U/L 19 U/L Alanine Aminotransferase (ALT/SGPT) 33 U/L 30 U/L Alkaline Phosphatase 114 U/L 97 U/L Total Protein 6.3 g/dL 6.2 g/dL Albumin 3.0 g/dL 2.8 g/dL Globulin 3.3 3.4 Differential Total Cells Counted 100 #CELLS Segmented Neutrophils 92 % Lymphocytes 3 % Monocytes 5 % Differential Comment NORMAL Platelet Estimate ADEQUATE Platelet Morphology NORMAL Blood Morphology Comment NORMAL MORPHOLOGY Current Medications Medications (Trade) Dose Ordered Sig/Escobar PRN Reason Start Time Stop Time Status Last Admin Acetaminophen (Tylenol) 325 mg Q4 PRN FEVER 06/11/18 17:00 07/11/18 16:59 Acetaminophen (Tylenol) 650 mg Q6 PRN FEVER/MILD PAIN 06/11/18 12:00 07/11/18 11:59 Acetaminophen/ Hydrocodone Bitart ([place] 5mg) 1 ea Q4H PRN PAIN 4 - 6 06/11/18 12:00 07/11/18 11:59 06/11/18 20:50 Dextrose (Dextrose 50%-Water Syringe) 25 ml STAT PRN HYPOGLYCEMIA 06/11/18 17:00 07/11/18 16:59 Enoxaparin Sodium (Lovenox) 40 mg DAILY@0830 06/12/18 08:30 07/12/18 08:29 Hydromorphone HCl (Dilaudid) 1 mg Q4H PRN PAIN 7 - 10 06/11/18 12:00 07/11/18 11:59 Insulin Human Regular (Humulin R) Give 30 minutes before meal ACHS 06/11/18 17:30 07/11/18 17:29 06/11/18 21:55 Levetiracetam (Keppra) 500 mg BID 06/11/18 21:00 07/11/18 20:59 06/11/18 20:51 Lorazepam (Ativan) 1 mg Q4HR PRN AGITATION 06/11/18 17:00 07/11/18 16:59 Metoclopramide HCl (Reglan) 10 mg Q6 PRN NAUSEA / VOMITING 06/11/18 19:00 07/11/18 18:59 06/12/18 05:10 Morphine Sulfate (Morphine Sulfate) 1 mg Q4H PRN PAIN 4 - 6 06/11/18 12:00 07/11/18 11:59 Morphine Sulfate (Morphine Sulfate) 3 mg Q3H PRN PAIN 7 - 10 06/11/18 12:00 07/11/18 11:59 06/12/18 07:48 Pantoprazole Sodium (Protonix Iv) 40 mg DAILY 06/12/18 09:00 07/12/18 08:59 Potassium Chloride/Dextrose/ Sod Cl 1,000 ml @ 125 mls/hr Q8H 06/11/18 11:58 07/11/18 11:57 06/11/18 20:49 Risperidone (Risperdal) 0.5 mg DAILY24 06/12/18 09:00 07/12/18 08:59 Risperidone (Risperdal) 0.75 mg HS 06/11/18 21:00 07/11/18 20:59 06/11/18 20:51 Sertraline HCl (Zoloft) 50 mg DAILY 06/12/18 09:00 07/12/18 08:59 Simethicone (Genasyme) 80 mg Q4 PRN GAS/BLOATING 06/11/18 12:00 07/11/18 11:59 06/12/18 05:10 Sepsis Infection Criteria Pres: None O2 Sat by Pulse Oximetry: 92 Oxygen Flow Rate: 2.00 Assessment/Plan Assessment/Plan Assessment/Plan 1. Colostomy Reversal - POD#1. Cont pain control, MAGNOLIA output is 5 to 10 cc's. No flatus or BS yet. - Continue IV Abx. - Greatly appreciate Dr. Aragon. 2. DM: holding home basal insulin. MDSSI to cover for now. - Will likely need to get ack on long acting in the next 48 hours.. 3. Seizure Disorder: cont keppra, - Ativan PRN 4. Generalized Anxiety Disorder: I think this is contributing to him not feeling well currently. - restart SSRI, Ativan PRN. Holding Xanax. 5. GERD: cont PPI 6. PPx: Lovenox, PPI PRIYANKA WAY MD Jun 12, 2018 08:50
[2018-06-12] MEDS: ZOLOFT PO SCH (09:21)
[2018-06-12] MEDS: KEPPRA PO SCH ×2 (09:21→21:15)
[2018-06-12] MEDS: RISPERDAL PO SCH ×2 (09:21→21:15)
[2018-06-12] MEDS: PROTONIX IV IV SCH (09:22)
[2018-06-12] MEDS: LOVENOX SQ SCH (09:22)
--- NOTE | 2018-06-12 09:45 | NUR ---
DISCHARGE PLAN CASE MANAGEMENT VISITED WITH PATIENT CONCERNING DISCHARGE PLAN AND NEEDS. 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 CM SPOKE WITH HIS BROTHER MEAGAN @ [phone] THE DISCHARGE GOAL IS TO DISCHARGE BACK TO [facility]. CM SPOKE WITH [facility] ABOUT DISCHARGE PLAN AND THEY WERE AGREEABLE WITH THE PLAN. CM WILL CONTINUE TO FOLLOW WITH DISCHARGE NEEDS.
[2018-06-12] MEDS: NORCO 5MG PO PRN (10:11)
--- NOTE | 2018-06-12 11:04 | NUR ---
Post-op day 1 follow-up for bilateral TAP block. Pt v/s stable. Pt is resting in bed. Pt has been requiring IV pain medications. Pt says pain is on right side and some in the middle but none on the left side. Pt states pain began last night. Pt abd dressing in place. Pt states no questions or concerns.
--- NOTE | 2018-06-12 11:15 | NUR ---
PRE-MEDICATED BEFORE AMBULATION PATIENT RATED PAIN AN 8/10 IN NUMERICAL PAIN SCALE. PATIENT MEDICATED WITH MORPHINE 3MG IV. PATIENT AGREED TO ATTEMPT AMBULATION/OR SITTING IN CHAIR FOR 30MINUTES BEFORE LUNCH.
--- NOTE | 2018-06-12 11:45 | NUR ---
UP TO CHAIR PATIENT ENCOURAGED OUT OF BED AND INTO CHAIR. GOAL OF 30 MINUTES OR LONGER. PATIENT ASSISTED OUT OF BED WITH ONE PERSON ASSIST. PATIENT USED WALKER TO AMBULATE TO CHAIR CLOSE TO BEDSIDE, APPROXIMATELY 5 FEET. PATIENT GAIT WEAK AND UNSTEADY. PATIENT LEFT SITTING UP WITH CALL LIGHT WITHIN EASY REACH.
--- NOTE | 2018-06-12 12:45 | NUR ---
DIZZY/BACK TO BED PATIENT SAT UP IN CHAIR CLOSE TO BEDSIDE FOR 1 HOUR. PATIENT C/O OF DIZZINESS AND NAUSEATED AND WANTING TO GO BACK TO BED. PATIENT REFUSED LUNCH. PATIENT GIVEN REGLAN 10MG IV. INSULIN HELD D/T PATIENT REFUSING MEALS. PATIENT LEFT LAYING IN BED ON LEFT SIDE. HEELS/FEET ELEVATED ON PILLOWS AND SCD ON BILATERALLY TO LOWER EXT. HOB ELEVATED 30 DEGREES. CALL LIGHT WITHIN EASY REACH.
--- NOTE | 2018-06-12 13:50 | NUR ---
MECLIZINE VERBAL ORDER RECEIVED FROM DR. WAY FOR MECLIZINE 25MG THREE TIMES A DAY FOR THE DIZZINESS. RBAV. SEE EMAJoan BAUM GIVEN INSTRUCTIONS REGARD NEW MEDICATION FOR DIZZINESS/VERTIGO AND S/E TO REPORT.
[2018-06-12] MEDS: ANTIVERT PO SCH ×2 (14:08→21:15)
--- NOTE | 2018-06-12 15:30 | NUR ---
MECLIZINE EFFECTIVE. PATIENT STATED DIZZINESS MUCH IMPROVED. PATIENT AGREED TO ATTEMPT TO AMBULATED LATER.
[2018-06-12] MEDS: DILAUDID IV PRN ×2 (16:28→21:16)
--- NOTE | 2018-06-12 16:45 | NUR ---
AMBULATION PATIENT AMBULATED FROM SIDE OF BED TO NURSE DESK AND BACK INTO ROOM. APPROXIMATELY 50FT. PATIENT SAT IN CHAIR NEXT TO BED. CALL LIGHT WITHIN EASY REACH.
[2018-06-12 16:52] LABS: BASOPHIL % 0.2 % (0.0-0.2); EOSINOPHIL % 0.1 % (0.0-5.0); HEMOGLOBIN 10.1 g/dL (13.9-16.3); LYMPHOCYTES # 2.1 10^3/uL (1.0-4.8); LYMPHOCYTES % 20.9 % (24.0-44.0); MEAN CELL HGB 30.8 pg (26-34); MEAN CELL HGB CONCENTRATION 34.1 g/dL (33-37); MEAN CORP VOLUME 90.2 fL (78-100); MEAN PLATELET VOLUME 9.5 fL (7.8-11.0); MONOCYTES # 0.9 10^3/uL (0.3-0.8); MONOCYTES % 9.5 % (5.0-12.0); NEUTROPHIL # 6.8 10^3/uL (1.8-7.7); NEUTROPHILS % 68.9 % (41.0-85.0); RED CELL DISTRIBUTION WIDTH 13.3 % (11.5-14.5); WHITE BLOOD CELL 9.9 10^3/uL (4.5-11.0)
[2018-06-12 17:04] LABS: CALCIUM 8.4 mg/dL (8.4-10.5); CARBON DIOXIDE 25.9 mmol/L (20.0-32)
--- NOTE | 2018-06-12 17:30 | NUR ---
BACK TO BED/WOUND PATIENT ASSISTED BACK TO BED WITH ONE PERSON ASSIST. PATIENT TOLERATED WELL. HOB ELEVATED TO PATIENT COMFORT, APPROXIMATELY 15 DEGREES. FEET ELEVATED ON 2 PILLOWS. DRESSING TO LEFT ANKLE AND RIGHT SECOND TOE CHANGED. NO DRAINAGE NOTED, PARAMETER SKIN INTACT. NO S/S OF INFECTION. SITE REDRESSED WITH ALLYVEN DRESSING FOR PRESSURE RELIEF. PATIENT TOLERATED WELL, NO C/O PAIN.
[2018-06-12] MEDS ORDERED: MAGNESIUM SULFATE 50 ML IV ONE (18:30)
--- NOTE | 2018-06-12 18:45 | NUR ---
REPORT RECEIVED. ASSUMED PT CARE.
[2018-06-13] VITALS (56 sets, daily range): BP systolic 109–157; BP diastolic 60–118
--- NOTE | 2018-06-13 00:18 | PNH ---
DATE: SUBJECTIVE: A 52-year-old male in no acute distress in his room in the ICU. He reports he is up today. He is passing some gas. He has had some nausea, but no emesis. He reports some pain around his incision, but no pain in the left lower quadrant. OBJECTIVE: VITAL SIGNS: Last temperature today is 97.7, last heart rate is 117, respiratory rate is reported as 10 in the electronic medical record that was better than that when I saw him. Last reported blood pressure is 123/75. ABDOMEN: The bowel sounds are positive, but decreased and soft. His dressings are intact. CARDIOVASCULAR: Shows a regular rate and rhythm. LUNGS: Clear anteriorly bilaterally. LABORATORY DATA: This morning, white count is 12.9, repeat is 9.9. Most recent hemoglobin is 10.1 with platelet count of 119. Labs today show BUN of 10, creatinine 0.80. His magnesium is low at 1.5. ASSESSMENT: 1. Postoperative day #1 exploratory laparotomy, reversal of colostomy, and intraoperative colonoscopy. 2. Hypomagnesemia. 3. History of diabetes. PLAN: 1. The patient is seen and examined. Chart was reviewed. 2. His magnesium was replaced. He will remain on clear liquids at this time with plans to discontinue Nelson tomorrow morning depending on how he does clinically. Neal Aragon DO DR: OTIS/alex JOB# [id number] CC: Rodney Barbosa MD
[2018-06-13] MEDS: MORPHINE SULFATE IV PRN ×5 (00:48→17:58)
--- NOTE | 2018-06-13 02:02 | NUR ---
MOBILITY LEVEL B: PT TO GET UP TO CHAIR X3 PER DAY PT TO USE BSC FOR TOILETING NEEDS PT TO PERFORM ACTIVE ROM EXERCISES X3 PER DAY PT TO PARTICIPATE IN PERSONAL CRE TO GREATEST EXTENT POSSIBLE THE ABOVE DISCUSSED WITH PT WITH UNDERSTANDING
[2018-06-13] MEDS: DILAUDID IV PRN (03:20)
--- NOTE | 2018-06-13 04:39 | NUR ---
FOLDER MACHINE OPERATOR AT BEDSIDE FOR BLOOD DRAW
[2018-06-13 05:16] LABS: BASOPHIL % 0.2 % (0.0-0.2); EOSINOPHIL # 0.2 10^3/uL (0.0-0.2); EOSINOPHIL % 2.6 % (0.0-5.0); HEMOGLOBIN 9.4 g/dL (13.9-16.3); LYMPHOCYTES # 2.3 10^3/uL (1.0-4.8); LYMPHOCYTES % 28.1 % (24.0-44.0); MEAN CELL HGB 30.3 pg (26-34); MEAN CELL HGB CONCENTRATION 33.3 g/dL (33-37); MEAN PLATELET VOLUME 9.5 fL (7.8-11.0); MONOCYTES % 12.6 % (5.0-12.0); NEUTROPHIL # 4.5 10^3/uL (1.8-7.7); RED CELL DISTRIBUTION WIDTH 13.3 % (11.5-14.5)
--- NOTE | 2018-06-13 05:30 | NUR ---
CHG BED BATH PERFORMED. PT PERFORMED ORAL CARE BY SELF. BED LINENS CHANGED.
[2018-06-13 05:40] LABS: CARBON DIOXIDE 25.8 mmol/L (20.0-32)
--- NOTE | 2018-06-13 06:55 | NUR ---
REPORT TO ONCOMING SHIFT. PT CARE RELINQUISHED.
--- NOTE | 2018-06-13 06:55 | NUR ---
Report received from NADIA P[facility]rez and [facility].
--- NOTE | 2018-06-13 07:16 | NUR ---
Dr. Aragon in the unit.
--- NOTE | 2018-06-13 07:25 | NUR ---
Dr. Aragon at bedside. Dressing change done on surgical incision site. Pictures taken and attached to the chart.
--- NOTE | 2018-06-13 07:30 | NUR ---
Dr. Barbosa at bedside. Assess the patient and discuss plan of care.
[2018-06-13] MEDS: D5W-1/2 NS/KCL 20MEQ 1,000 ML IV SCH ×3 (07:32→21:00)
--- NOTE | 2018-06-13 07:32 | NUR ---
New order received from Dr. Aragon. Patient for transfer to [facility], on telemetry.
--- NOTE | 2018-06-13 07:35 | NUR ---
Nelson DC'D and patient is due to void at 1335.
--- NOTE | 2018-06-13 08:00 | NUR ---
RT Augustina at bedside. Place patient on room air.
[2018-06-13] MEDS: HUMULIN R SQ SCH ×4 (08:12→21:41)
[2018-06-13] MEDS: LOVENOX SQ SCH (08:25)
[2018-06-13] MEDS: RISPERDAL PO SCH ×2 (08:26→20:59)
[2018-06-13] MEDS: PROTONIX IV IV SCH (08:26)
[2018-06-13] MEDS: ZOLOFT PO SCH (08:26)
[2018-06-13] MEDS: KEPPRA PO SCH ×2 (08:27→20:59)
[2018-06-13] MEDS: ANTIVERT PO SCH ×3 (08:27→20:58)
--- NOTE | 2018-06-13 08:30 | NUR ---
Breakfast tray served.
--- NOTE | 2018-06-13 08:30 | NUR ---
Called [facility] for room number, charge nurse is in a meeting.
--- NOTE | 2018-06-13 10:20 | NUR ---
Patient ambulated from bed to ICU hallway using a rolling walker with 2 person assist and back to the recliner.
--- NOTE | 2018-06-13 10:31 | PRM.PN ---
Subjective Subjective Date: Jun 13, 2018 Time: 10:21 Subjective Much improved. Passing gas Wounds doing well. Minimal pain. No other overnight events. Patient History: Diabetes mellitus G8 SISTER FH: brain tumor G8 BROTHER, FH: cancer 32 MOTHER, No known health problems 33 FATHER, Pacemaker 32 MOTHER, Relative being killed G8 SISTER, VTE VTE Risk Total Score: 5 VTE Risk Score VTE Risk: Score 0-1 = Low Risk (Aggressive mobilization; early ambulation; no VTE prophylaxis required) Score 2: Moderate Risk (Intermittent/Pneumatic Compression Device OR Lovenox/Heparin/Coumadin) Score 3-4: High Risk (Intermittent/Pneumatic Compression Device AND Lovenox/Heparin/Coumadin) Score > or =5: Highest Risk (Intermittent/Pneumatic Compression Device AND Lovenox/Heparin/Coumadin) Review of Systems Constitutional: No: Fever, Chills Eyes: No: Conjunctivae inflammation, Eyelid inflammation ENT: No: Nose discharge, Nose congestion Respiratory: No: Cough, Shortness of breath, SOB with excertion, Wheezing Cardiovascular: No: Chest Pain, Palpitations, Edema Gastrointestinal: Nausea, Abdominal Pain; No: Vomiting Genitourinary: No Hematuria, No Retention Musculoskeletal: neck pain, back pain Skin: Rash; No: Lesions, Jaundice, Bruising Neurological: No: Weakness, Numbness, Incoordination, Change in speech, Confusion, Seizures Allergies: Coded Allergies: No Known Allergies (Unverified , 06/07/18) Scheduled Alprazolam (Xanax), 1 TAB PO TID, (Reported) Clonidine Hcl (Clonidine Hcl), 1 TAB PO HS, (Reported) Cranberry (Cranberry), 450 MG PO BID, (Reported) Cyclobenzaprine Hcl (Flexeril), 1 TAB PO BID, (Reported) Docusate Sodium (Colace), 1 CAP PO BID, (Reported) Erythromycin Base (Erythromycin), 250 MG PO TID, (Reported) Furosemide (Lasix), 1 TAB PO DAILY, (Reported) Gabapentin (Gabapentin), 1 CAP PO HS, (Reported) Insulin Degludec (Tresiba), 20 UNITS SUBCUT DAILY24, (Reported) Insulin Regular, Human (Humulin R), 0 IJ QID, (Reported) Levetiracetam (Keppra), 1 TAB PO BID, (Reported) Meloxicam (Meloxicam), 1 TAB PO DAILY, (Reported) Omeprazole (Omeprazole), 1 TAB PO DAILY, (Reported) Psyllium Husk/Aspartame (Metamucil Sugar-Free Powder), 283 GM PO BID, (Reported) Risperidone (Risperdal), 1 TAB PO DAILY24, (Reported) Risperidone (Risperdal), 1.5 TAB PO HS, (Reported) Sertraline Hcl (Zoloft), 1 TAB PO DAILY, (Reported) Scheduled PRN Acetaminophen (Acetaminophen), 650 TAB PO Q4 PRN for FEVER, (Reported) Guaifenesin (Humaira-Tussin), 10 ML PO Q4 PRN for COUGH, (Reported) Loperamide Hcl (Loperamide), 2 MG PO PRN PRN for DIARRHEA, (Reported) Mag Hydrox/Al Hydrox/Simeth (Humaira-Lanta Liquid), 30 ML PO Q6 PRN for INDIGESTION , (Reported) Magnesium Hydroxide (Milk Of Magnesia), 30 MG PO DAILY24 PRN for CONSTIPATION, ( Reported) Na Phos,M-B/Na Phos,Di-Ba (Fleet Enema), 133 ML RC PRN PRN for CONSTIPATION, ( Reported) Tizanidine Hcl (Tizanidine Hcl), 0.5 TAB PO BID PRN for MUSCLE SPASM, (Reported) Discontinued Medications Loperamide HCl (Anti-Diarrheal), 2 MG PO RTPRN, (Reported) Discontinued Reason: Cancel Objective Vitals and I/O Vital Sign - Last 24 Hours 06/11/18 06/11/18 06/11/18 06/11/18 12:15 12:15 12:24 12:29 Temp 98.5 98.5 98.5 98.5 98.5 98.5 Pulse 71 70 76 Resp 18 18 18 B/P (MAP) 150/96 (114) 144/94 (111) 140/90 (107) Pulse Ox 100 100 100 O2 Delivery Non-Rebreather Non-Rebreather Room Air O2 Flow Rate 10 10 5 06/11/18 06/11/18 06/11/18 06/11/18 12:40 12:50 12:59 13:10 Temp 98.8 97.7 98.4 98.7 98.8 97.7 98.4 98.7 Pulse 83 79 81 79 Resp 18 18 18 18 B/P (MAP) 147/97 (114) 140/88 (105) 148/90 (109) 145/96 (112) Pulse Ox 98 96 97 99 O2 Delivery Nasal Canula Nasal Canula Nasal Canula Nasal Canula O2 Flow Rate 2 2 2 2 06/11/18 06/11/18 06/11/18 06/11/18 13:46 13:48 13:49 14:00 Temp 98.7 98.7 Pulse 100 78 Resp 10 10 16 16 B/P (MAP) 146/96 (113) 140/93 (109) Pulse Ox 79 79 98 99 O2 Delivery Nasal Cannula O2 Flow Rate 2.00 FiO2 28 06/11/18 06/11/18 06/11/18 06/11/18 14:15 14:25 14:30 14:45 Pulse 87 84 87 Resp 16 12 13 B/P (MAP) 142/88 (106) 141/88 (105) 145/92 (109) Pulse Ox 99 99 99 O2 Delivery Nasal Cannula O2 Flow Rate 2.00 06/11/18 06/11/18 06/11/18 06/11/18 15:00 15:15 15:30 15:45 Pulse 82 87 98 84 Resp 12 16 16 16 B/P (MAP) 145/93 (110) 145/87 (106) 165/91 (115) 134/85 (101) Pulse Ox 100 100 100 100 06/11/18 06/11/18 06/11/18 06/11/18 16:00 16:15 16:30 16:45 Pulse 81 93 79 78 Resp 16 10 10 10 B/P (MAP) 131/79 (96) 144/97 (113) 139/87 (104) 134/92 (106) Pulse Ox 100 100 100 100 06/11/18 06/11/18 06/11/18 06/11/18 17:00 17:10 17:15 17:30 Pulse 96 102 105 96 Resp 21 16 15 17 B/P (MAP) 139/90 (106) 143/93 (110) 111/80 (90) 132/85 (101) Pulse Ox 97 97 92 93 06/11/18 06/11/18 06/11/18 06/11/18 17:45 18:00 18:15 18:30 Pulse 98 100 100 97 Resp 16 15 17 12 Pulse Ox 94 94 94 93 06/11/18 06/11/18 06/11/18 06/11/18 18:45 19:00 19:00 19:04 Temp 98.5 98.5 Pulse 97 98 91 Resp 13 14 12 B/P (MAP) 133/86 (102) Pulse Ox 95 96 97 O2 Delivery Nasal Cannula O2 Flow Rate 2.00 06/11/18 06/11/18 06/11/18 06/11/18 19:15 19:30 19:45 20:00 Pulse 90 92 88 96 Resp 13 14 11 16 B/P (MAP) 124/81 (95) 127/79 (95) 128/83 (98) 126/83 (97) Pulse Ox 93 94 94 97 06/11/18 06/11/18 06/11/18 06/11/18 20:15 20:30 20:45 21:00 Pulse 99 96 91 104 Resp 14 12 12 15 B/P (MAP) 122/84 (97) 124/83 (97) 125/82 (96) 121/84 (96) Pulse Ox 93 94 94 94 06/11/18 06/11/18 06/11/18 06/11/18 21:15 21:30 21:42 21:45 Pulse 101 101 90 105 Resp 13 16 18 16 B/P (MAP) 127/85 (99) 118/84 (95) 123/85 (98) Pulse Ox 94 95 94 94 O2 Delivery Nasal Cannula FiO2 21 06/11/18 06/11/18 06/11/18 06/11/18 22:00 22:15 22:30 22:45 Pulse 103 102 108 110 Resp 12 12 16 16 B/P (MAP) 128/81 (97) 127/86 (100) 124/83 (97) 117/82 (94) Pulse Ox 94 96 95 93 06/11/18 06/11/18 06/11/18 06/11/18 23:00 23:00 23:15 23:30 Pulse 103 108 119 Resp 22 14 12 B/P (MAP) 121/77 (92) 120/77 (91) 128/81 (97) Pulse Ox 93 94 95 O2 Delivery Room Air 06/11/18 06/12/18 06/12/18 06/12/18 23:46 00:00 00:15 00:30 Temp 98.4 98.4 Pulse 126 108 107 108 Resp 21 14 14 14 B/P (MAP) 148/89 (108) 130/87 (101) 120/79 (93) 125/82 (96) Pulse Ox 96 95 95 96 06/12/18 06/12/18 06/12/18 06/12/18 00:45 01:00 01:15 01:30 Pulse 110 109 109 109 Resp 14 13 15 15 B/P (MAP) 122/81 (95) 116/77 (90) 125/84 (98) 125/80 (95) Pulse Ox 94 95 96 95 06/12/18 06/12/18 06/12/18 06/12/18 01:45 02:00 02:15 02:27 Pulse 109 112 113 108 Resp 13 15 16 18 B/P (MAP) 119/79 (92) 123/77 (92) 130/84 (99) 146/85 (105) Pulse Ox 97 97 97 99 06/12/18 06/12/18 06/12/18 06/12/18 02:30 02:38 02:45 03:00 Pulse 118 113 112 107 Resp 21 18 17 13 B/P (MAP) 87/64 (72) 118/82 (94) 129/83 (98) 125/79 (94) Pulse Ox 96 97 98 99 06/12/18 06/12/18 06/12/18 06/12/18 03:15 03:30 03:45 04:00 Pulse 109 106 113 Resp 15 13 17 B/P (MAP) 122/81 (95) 127/80 (96) 130/75 (93) Pulse Ox 99 100 93 O2 Delivery Room Air 06/12/18 06/12/18 06/12/18 06/12/18 04:00 04:15 04:30 04:45 Temp 98.7 98.7 Pulse 108 111 109 102 Resp 16 16 16 13 B/P (MAP) 127/79 (95) 135/78 (97) 127/78 (94) 127/72 (90) Pulse Ox 95 95 94 95 06/12/18 06/12/18 06/12/18 06/12/18 05:00 05:15 05:30 05:45 Pulse 100 101 120 112 Resp 12 14 22 25 B/P (MAP) 136/78 (97) 130/78 (95) 118/74 (89) 127/85 (99) Pulse Ox 96 96 97 94 06/12/18 06/12/18 06/12/18 06/12/18 06:00 06:30 06:45 07:00 Pulse 107 105 102 107 Resp 16 14 15 14 B/P (MAP) 133/82 (99) 113/78 (90) 126/72 (90) 126/74 (91) Pulse Ox 95 96 93 95 06/12/18 06/12/18 06/12/18 06/12/18 07:15 07:30 07:45 08:00 Pulse 106 117 106 Resp 16 15 13 B/P (MAP) 126/73 (90) 112/81 (91) 115/69 (84) Pulse Ox 93 92 93 O2 Delivery Room Air 06/12/18 06/12/18 06/12/18 08:01 08:15 08:30 Temp 97.7 97.7 Pulse 114 109 108 Resp 18 14 14 B/P (MAP) 129/77 (94) 111/65 (80) 114/64 (81) Pulse Ox 96 94 92 Intake and Output 06/11/18 06/11/18 06/12/18 15:00 23:00 07:00 Intake Total 30237 ml 823 ml 1228 ml Output Total 250 ml 880 ml 1035 ml Balance 80437 ml -57 ml 193 ml General: Alert, Oriented X3, Cooperative, No acute distress HEENT: Atraumatic, PERRLA, EOMI, Mucous membr. moist/pink Lungs: Clear to auscultation, Normal air movement Heart: Regular rate, Normal S1, Normal S2, No murmurs Abdomen: Soft, Other (mild tenderness to palpation umbilical area, dressing in place over ostomy, surgical incision, MAGNOLIA in place) Neuro: Normal speech, Cranial nerves 3-12 NL Psych/Mental Status: Mental status NL, Mood NL All Results(Lab/Rad) Laboratory Tests Test 06/11/18 17:00 06/11/18 17:30 06/11/18 17:33 06/12/18 05:00 White Blood Count 16.2 10^3/uL 12.9 10^3/uL Red Blood Count 4.30 10^6/uL 3.66 10^6/uL Hemoglobin 13.1 g/dL 11.2 g/dL Hematocrit 38.0 % 32.7 % Mean Corpuscular Volume 88.4 fL 89.3 fL Mean Corpuscular Hemoglobin 30.5 pg 30.6 pg Mean Corpuscular Hemoglobin Concent 34.5 g/dL 34.3 g/dL Red Cell Distribution Width 13.2 % 13.3 % Platelet Count 115 10^3/uL 146 10^3/uL Mean Platelet Volume 9.6 fL 9.6 fL Neutrophils (%) (Auto) 87.3 % 77.7 % Lymphocytes (%) (Auto) 5.0 % 12.3 % Monocytes (%) (Auto) 7.2 % 9.6 % Neutrophils # (Auto) 14.1 10^3/uL 10.0 10^3/uL Lymphocytes # (Auto) 0.8 10^3/uL 1.6 10^3/uL Monocytes # (Auto) 1.2 10^3/uL 1.2 10^3/uL Absolute Immature Granulocyte (auto 0.07 10^3 u/L 0.04 10^3 u/L Eosinophils % 0.0 % 0.0 % Basophils % 0.1 % 0.1 % Basophils # 0.0 10^3/uL 0.0 10^3/uL Eosinophil Count 0.0 10^3/uL 0.0 10^3/uL Percent Immature Gran (Cell Imm) 0.40 % 0.30 % Sodium Level 134 mmol/L 136 mmol/L Potassium Level 4.6 mmol/L 4.8 mmol/L Chloride Level 102.0 mmol/L 102.0 mmol/L Carbon Dioxide Level 18.9 mmol/L 23.6 mmol/L Anion Gap 17.7 15.2 Blood Urea Nitrogen 9 mg/dL 10 mg/dL Creatinine 0.81 mg/dL 0.96 mg/dL Estimated GFR () 120.2 98.8 BUN/Creatinine Ratio 11.0 10.0 Glucose Level 315 mg/dL 280 mg/dL Calcium Level 8.1 mg/dL 8.3 mg/dL Total Bilirubin 0.8 mg/dL 0.8 mg/dL Aspartate Amino Transf (AST/SGOT) 26 U/L 19 U/L Alanine Aminotransferase (ALT/SGPT) 33 U/L 30 U/L Alkaline Phosphatase 114 U/L 97 U/L Total Protein 6.3 g/dL 6.2 g/dL Albumin 3.0 g/dL 2.8 g/dL Globulin 3.3 3.4 Differential Total Cells Counted 100 #CELLS Segmented Neutrophils 92 % Lymphocytes 3 % Monocytes 5 % Differential Comment NORMAL Platelet Estimate ADEQUATE Platelet Morphology NORMAL Blood Morphology Comment NORMAL MORPHOLOGY Current Medications Medications (Trade) Dose Ordered Sig/Escobar Route PRN Reason Start Time Stop Time Status Last Admin Dose Admin Enoxaparin Sodium (Lovenox) 40 mg OT ONCE SQ 06/11/18 06:45 06/11/18 16:12 DC 06/11/18 06:53 Cefoxitin Sodium (Mefoxin) 1 gm STK-MED ONCE .ROUTE 06/11/18 05:55 06/11/18 05:56 DC Sodium Chloride 100 ml @ ud STK-MED ONCE IV 06/11/18 05:55 06/11/18 05:57 DC Dexamethasone Sodium Phosphate (Decadron) 4 mg STK-MED ONCE .ROUTE 06/11/18 06:46 06/11/18 06:47 DC Neostigmine Methylsulfate (Neostigmine) 10 mg STK-MED ONCE .ROUTE 06/11/18 06:46 06/11/18 06:48 DC Ondansetron HCl (Zofran) 4 mg STK-MED ONCE .ROUTE 06/11/18 06:46 06/11/18 06:48 DC Ketorolac Tromethamine (Toradol) 30 mg STK-MED ONCE .ROUTE 06/11/18 06:46 06/11/18 06:48 DC Rocuronium Edison (Zemuron) 100 mg STK-MED ONCE IV 06/11/18 06:46 06/11/18 06:48 DC Hydromorphone HCl (Dilaudid) 2 mg STK-MED ONCE .ROUTE 06/11/18 06:47 06/11/18 06:48 DC Fentanyl Citrate (Sublimaze) 100 mcg STK-MED ONCE .ROUTE 06/11/18 06:47 06/11/18 06:49 DC Propofol (Diprivan) 200 mg STK-MED ONCE IV 06/11/18 06:47 06/11/18 06:49 DC Midazolam HCl (Versed) 1 mg STK-MED ONCE .ROUTE 06/11/18 06:48 06/11/18 06:49 DC Lidocaine HCl (Lidocaine 2% Vial) 500 mg STK-MED ONCE .ROUTE 06/11/18 06:48 06/11/18 06:50 DC Sodium Chloride (Sodium Chloride) 1,000 ml STK-MED ONCE IR 06/11/18 07:00 06/11/18 07:02 DC Sterile Water (Water) 1,000 ml STK-MED ONCE .ROUTE 06/11/18 07:01 06/11/18 07:02 DC Bupivacaine HCl (Sensorcaine-Mpf 0.25% Vial) 2.5 mg STK-MED ONCE .ROUTE 06/11/18 07:01 06/11/18 07:02 DC Labetalol HCl (Trandate) 20 mg STK-MED ONCE IV 06/11/18 07:22 06/11/18 07:23 DC Sodium Chloride 1,000 ml @ ud STK-MED ONCE .ROUTE 06/11/18 08:41 06/11/18 08:42 DC Sterile Water (Water) 1,000 ml STK-MED ONCE .ROUTE 06/11/18 09:30 06/11/18 09:32 DC Sterile Water (Water) 1,000 ml STK-MED ONCE .ROUTE 06/11/18 09:46 06/11/18 09:47 DC Cefoxitin Sodium (Mefoxin) 1 gm STK-MED ONCE .ROUTE 06/11/18 10:34 06/11/18 10:35 DC Sodium Chloride 100 ml @ ud STK-MED ONCE IV 06/11/18 10:34 06/11/18 10:35 DC Sterile Water (Water) 1,000 ml STK-MED ONCE .ROUTE 06/11/18 11:04 06/11/18 11:05 DC Morphine Sulfate (Morphine Sulfate) 1 mg Q4H PRN IV PAIN 4 - 6 06/11/18 12:00 07/11/18 11:59 Morphine Sulfate (Morphine Sulfate) 3 mg Q3H PRN IV PAIN 7 - 10 06/11/18 12:00 07/11/18 11:59 06/12/18 07:48 Acetaminophen/ Hydrocodone Bitart (Nora 5mg) 1 ea Q4H PRN PO PAIN 4 - 6 06/11/18 12:00 07/11/18 11:59 06/11/18 20:50 Acetaminophen (Tylenol) 650 mg Q6 PRN PO FEVER/MILD PAIN 06/11/18 12:00 07/11/18 11:59 Pantoprazole Sodium (Protonix Iv) 40 mg DAILY IV 06/12/18 09:00 07/12/18 08:59 Simethicone (Genasyme) 80 mg Q4 PRN PO GAS/BLOATING 06/11/18 12:00 07/11/18 11:59 06/12/18 05:10 Enoxaparin Sodium (Lovenox) 40 mg DAILY@0830 SQ 06/12/18 08:30 07/12/18 08:29 Potassium Chloride/Dextrose/ Sod Cl 1,000 ml @ 125 mls/hr Q8H IV 06/11/18 11:58 07/11/18 11:57 06/11/18 20:49 Hydromorphone HCl (Dilaudid) 1 mg Q4H PRN IV PAIN 7 - 10 06/11/18 12:00 07/11/18 11:59 Cefoxitin Sodium 1 gm/Sodium Chloride 100 ml @ 100 mls/hr Q6 IV 06/11/18 12:00 06/12/18 07:17 DC 06/12/18 05:27 Sodium Chloride 1,000 ml @ [facility]-MED ONCE .ROUTE 06/11/18 12:08 06/11/18 12:09 DC Hydromorphone HCl (Dilaudid) 0.2 mg Q5MIN PRN IV PAIN 1 - 3 06/11/18 12:30 06/11/18 16:06 DC 06/11/18 12:54 Ondansetron HCl (Zofran) 4 mg PRN PRN IV nv 06/11/18 12:30 06/11/18 16:13 DC Promethazine HCl (Phenergan) 6.25 mg PRN PRN IV NAUSEA / VOMITING 06/11/18 12:30 06/11/18 16:13 DC Diphenhydramine HCl (Benadryl) 25 mg Q5MIN PRN IV NAUSEA / VOMITING 06/11/18 12:30 06/11/18 16:06 DC Acetaminophen (Tylenol) 325 mg Q4 PRN PO FEVER 06/11/18 17:00 07/11/18 16:59 Levetiracetam (Keppra) 500 mg BID PO 06/11/18 21:00 07/11/18 20:59 06/11/18 20:51 Sertraline HCl (Zoloft) 50 mg DAILY PO 06/12/18 09:00 07/12/18 08:59 Risperidone (Risperdal) 0.5 mg DAILY24 PO 06/12/18 09:00 07/12/18 08:59 Risperidone (Risperdal) 0.75 mg HS PO 06/11/18 21:00 07/11/18 20:59 06/11/18 20:51 Insulin Human Regular (Humulin R) Give 30 minutes before meal ACHS SQ 06/11/18 17:30 07/11/18 17:29 06/11/18 21:55 Dextrose (Dextrose 50%-Water Syringe) 25 ml STAT PRN IV HYPOGLYCEMIA 06/11/18 17:00 07/11/18 16:59 Lorazepam (Ativan) 1 mg Q4HR PRN IM AGITATION 06/11/18 17:00 07/11/18 16:59 Metoclopramide HCl (Reglan) 10 mg Q6 PRN IV NAUSEA / VOMITING 06/11/18 19:00 07/11/18 18:59 06/12/18 05:10 Course Sepsis Screening Results: Posi: NEGATIVE Sepsis Qualifier/Stage: NO DEFINITE RISK Vitals & review Data Vital Sign - Last 24 Hours 06/11/18 06/11/18 06/11/18 06/11/18 12:15 12:15 12:24 12:29 Temp 98.5 98.5 98.5 98.5 98.5 98.5 Pulse 71 70 76 Resp 18 18 18 B/P (MAP) 150/96 (114) 144/94 (111) 140/90 (107) Pulse Ox 100 100 100 O2 Delivery Non-Rebreather Non-Rebreather Room Air O2 Flow Rate 10 10 5 06/11/18 06/11/18 06/11/18 06/11/18 12:40 12:50 12:59 13:10 Temp 98.8 97.7 98.4 98.7 98.8 97.7 98.4 98.7 Pulse 83 79 81 79 Resp 18 18 18 18 B/P (MAP) 147/97 (114) 140/88 (105) 148/90 (109) 145/96 (112) Pulse Ox 98 96 97 99 O2 Delivery Nasal Canula Nasal Canula Nasal Canula Nasal Canula O2 Flow Rate 2 2 2 2 06/11/18 06/11/18 06/11/18 06/11/18 13:46 13:48 13:49 14:00 Temp 98.7 98.7 Pulse 100 78 Resp 10 10 16 16 B/P (MAP) 146/96 (113) 140/93 (109) Pulse Ox 79 79 98 99 O2 Delivery Nasal Cannula O2 Flow Rate 2.00 FiO2 28 06/11/18 06/11/18 06/11/18 06/11/18 14:15 14:25 14:30 14:45 Pulse 87 84 87 Resp 16 12 13 B/P (MAP) 142/88 (106) 141/88 (105) 145/92 (109) Pulse Ox 99 99 99 O2 Delivery Nasal Cannula O2 Flow Rate 2.00 06/11/18 06/11/18 06/11/18 06/11/18 15:00 15:15 15:30 15:45 Pulse 82 87 98 84 Resp 12 16 16 16 B/P (MAP) 145/93 (110) 145/87 (106) 165/91 (115) 134/85 (101) Pulse Ox 100 100 100 100 06/11/18 06/11/18 06/11/18 06/11/18 16:00 16:15 16:30 16:45 Pulse 81 93 79 78 Resp 16 10 10 10 B/P (MAP) 131/79 (96) 144/97 (113) 139/87 (104) 134/92 (106) Pulse Ox 100 100 100 100 06/11/18 06/11/18 06/11/18 06/11/18 17:00 17:10 17:15 17:30 Pulse 96 102 105 96 Resp 21 16 15 17 B/P (MAP) 139/90 (106) 143/93 (110) 111/80 (90) 132/85 (101) Pulse Ox 97 97 92 93 06/11/18 06/11/18 06/11/18 06/11/18 17:45 18:00 18:15 18:30 Pulse 98 100 100 97 Resp 16 15 17 12 Pulse Ox 94 94 94 93 06/11/18 06/11/18 06/11/18 06/11/18 18:45 19:00 19:00 19:04 Temp 98.5 98.5 Pulse 97 98 91 Resp 13 14 12 B/P (MAP) 133/86 (102) Pulse Ox 95 96 97 O2 Delivery Nasal Cannula O2 Flow Rate 2.00 06/11/18 06/11/18 06/11/18 06/11/18 19:15 19:30 19:45 20:00 Pulse 90 92 88 96 Resp 13 14 11 16 B/P (MAP) 124/81 (95) 127/79 (95) 128/83 (98) 126/83 (97) Pulse Ox 93 94 94 97 06/11/18 06/11/18 06/11/18 06/11/18 20:15 20:30 20:45 21:00 Pulse 99 96 91 104 Resp 14 12 12 15 B/P (MAP) 122/84 (97) 124/83 (97) 125/82 (96) 121/84 (96) Pulse Ox 93 94 94 94 06/11/18 06/11/18 06/11/18 06/11/18 21:15 21:30 21:42 21:45 Pulse 101 101 90 105 Resp 13 16 18 16 B/P (MAP) 127/85 (99) 118/84 (95) 123/85 (98) Pulse Ox 94 95 94 94 O2 Delivery Nasal Cannula FiO2 21 06/11/18 06/11/18 06/11/18 06/11/18 22:00 22:15 22:30 22:45 Pulse 103 102 108 110 Resp 12 12 16 16 B/P (MAP) 128/81 (97) 127/86 (100) 124/83 (97) 117/82 (94) Pulse Ox 94 96 95 93 06/11/18 06/11/18 06/11/18 06/11/18 23:00 23:00 23:15 23:30 Pulse 103 108 119 Resp 22 14 12 B/P (MAP) 121/77 (92) 120/77 (91) 128/81 (97) Pulse Ox 93 94 95 O2 Delivery Room Air 06/11/18 06/12/18 06/12/18 06/12/18 23:46 00:00 00:15 00:30 Temp 98.4 98.4 Pulse 126 108 107 108 Resp 21 14 14 14 B/P (MAP) 148/89 (108) 130/87 (101) 120/79 (93) 125/82 (96) Pulse Ox 96 95 95 96 06/12/18 06/12/18 06/12/18 06/12/18 00:45 01:00 01:15 01:30 Pulse 110 109 109 109 Resp 14 13 15 15 B/P (MAP) 122/81 (95) 116/77 (90) 125/84 (98) 125/80 (95) Pulse Ox 94 95 96 95 06/12/18 06/12/18 06/12/18 06/12/18 01:45 02:00 02:15 02:27 Pulse 109 112 113 108 Resp 13 15 16 18 B/P (MAP) 119/79 (92) 123/77 (92) 130/84 (99) 146/85 (105) Pulse Ox 97 97 97 99 06/12/18 06/12/18 06/12/18 06/12/18 02:30 02:38 02:45 03:00 Pulse 118 113 112 107 Resp 21 18 17 13 B/P (MAP) 87/64 (72) 118/82 (94) 129/83 (98) 125/79 (94) Pulse Ox 96 97 98 99 06/12/18 06/12/18 06/12/18 06/12/18 03:15 03:30 03:45 04:00 Pulse 109 106 113 Resp 15 13 17 B/P (MAP) 122/81 (95) 127/80 (96) 130/75 (93) Pulse Ox 99 100 93 O2 Delivery Room Air 06/12/18 06/12/18 06/12/18 06/12/18 04:00 04:15 04:30 04:45 Temp 98.7 98.7 Pulse 108 111 109 102 Resp 16 16 16 13 B/P (MAP) 127/79 (95) 135/78 (97) 127/78 (94) 127/72 (90) Pulse Ox 95 95 94 95 06/12/18 06/12/18 06/12/18 06/12/18 05:00 05:15 05:30 05:45 Pulse 100 101 120 112 Resp 12 14 22 25 B/P (MAP) 136/78 (97) 130/78 (95) 118/74 (89) 127/85 (99) Pulse Ox 96 96 97 94 06/12/18 06/12/18 06/12/18 06/12/18 06:00 06:30 06:45 07:00 Pulse 107 105 102 107 Resp 16 14 15 14 B/P (MAP) 133/82 (99) 113/78 (90) 126/72 (90) 126/74 (91) Pulse Ox 95 96 93 95 06/12/18 06/12/18 06/12/18 06/12/18 07:15 07:30 07:45 08:00 Pulse 106 117 106 Resp 16 15 13 B/P (MAP) 126/73 (90) 112/81 (91) 115/69 (84) Pulse Ox 93 92 93 O2 Delivery Room Air 06/12/18 06/12/18 06/12/18 08:01 08:15 08:30 Temp 97.7 97.7 Pulse 114 109 108 Resp 18 14 14 B/P (MAP) 129/77 (94) 111/65 (80) 114/64 (81) Pulse Ox 96 94 92 Intake and Output 06/11/18 06/11/18 06/12/18 15:00 23:00 07:00 Intake Total 31029 ml 823 ml 1228 ml Output Total 250 ml 880 ml 1035 ml Balance 70854 ml -57 ml 193 ml Laboratory Tests Test 06/11/18 17:00 06/11/18 17:30 06/11/18 17:33 06/12/18 05:00 White Blood Count 16.2 10^3/uL 12.9 10^3/uL Red Blood Count 4.30 10^6/uL 3.66 10^6/uL Hemoglobin 13.1 g/dL 11.2 g/dL Hematocrit 38.0 % 32.7 % Mean Corpuscular Volume 88.4 fL 89.3 fL Mean Corpuscular Hemoglobin 30.5 pg 30.6 pg Mean Corpuscular Hemoglobin Concent 34.5 g/dL 34.3 g/dL Red Cell Distribution Width 13.2 % 13.3 % Platelet Count 115 10^3/uL 146 10^3/uL Mean Platelet Volume 9.6 fL 9.6 fL Neutrophils (%) (Auto) 87.3 % 77.7 % Lymphocytes (%) (Auto) 5.0 % 12.3 % Monocytes (%) (Auto) 7.2 % 9.6 % Neutrophils # (Auto) 14.1 10^3/uL 10.0 10^3/uL Lymphocytes # (Auto) 0.8 10^3/uL 1.6 10^3/uL Monocytes # (Auto) 1.2 10^3/uL 1.2 10^3/uL Absolute Immature Granulocyte (auto 0.07 10^3 u/L 0.04 10^3 u/L Eosinophils % 0.0 % 0.0 % Basophils % 0.1 % 0.1 % Basophils # 0.0 10^3/uL 0.0 10^3/uL Eosinophil Count 0.0 10^3/uL 0.0 10^3/uL Percent Immature Gran (Cell Imm) 0.40 % 0.30 % Sodium Level 134 mmol/L 136 mmol/L Potassium Level 4.6 mmol/L 4.8 mmol/L Chloride Level 102.0 mmol/L 102.0 mmol/L Carbon Dioxide Level 18.9 mmol/L 23.6 mmol/L Anion Gap 17.7 15.2 Blood Urea Nitrogen 9 mg/dL 10 mg/dL Creatinine 0.81 mg/dL 0.96 mg/dL Estimated GFR () 120.2 98.8 BUN/Creatinine Ratio 11.0 10.0 Glucose Level 315 mg/dL 280 mg/dL Calcium Level 8.1 mg/dL 8.3 mg/dL Total Bilirubin 0.8 mg/dL 0.8 mg/dL Aspartate Amino Transf (AST/SGOT) 26 U/L 19 U/L Alanine Aminotransferase (ALT/SGPT) 33 U/L 30 U/L Alkaline Phosphatase 114 U/L 97 U/L Total Protein 6.3 g/dL 6.2 g/dL Albumin 3.0 g/dL 2.8 g/dL Globulin 3.3 3.4 Differential Total Cells Counted 100 #CELLS Segmented Neutrophils 92 % Lymphocytes 3 % Monocytes 5 % Differential Comment NORMAL Platelet Estimate ADEQUATE Platelet Morphology NORMAL Blood Morphology Comment NORMAL MORPHOLOGY Current Medications Medications (Trade) Dose Ordered Sig/Escobar PRN Reason Start Time Stop Time Status Last Admin Acetaminophen (Tylenol) 325 mg Q4 PRN FEVER 06/11/18 17:00 07/11/18 16:59 Acetaminophen (Tylenol) 650 mg Q6 PRN FEVER/MILD PAIN 06/11/18 12:00 07/11/18 11:59 Acetaminophen/ Hydrocodone Bitart (Nora 5mg) 1 ea Q4H PRN PAIN 4 - 6 06/11/18 12:00 07/11/18 11:59 06/11/18 20:50 Dextrose (Dextrose 50%-Water Syringe) 25 ml STAT PRN HYPOGLYCEMIA 06/11/18 17:00 07/11/18 16:59 Enoxaparin Sodium (Lovenox) 40 mg DAILY@0830 06/12/18 08:30 07/12/18 08:29 Hydromorphone HCl (Dilaudid) 1 mg Q4H PRN PAIN 7 - 10 06/11/18 12:00 07/11/18 11:59 Insulin Human Regular (Humulin R) Give 30 minutes before meal ACHS 06/11/18 17:30 07/11/18 17:29 06/11/18 21:55 Levetiracetam (Keppra) 500 mg BID 06/11/18 21:00 07/11/18 20:59 06/11/18 20:51 Lorazepam (Ativan) 1 mg Q4HR PRN AGITATION 06/11/18 17:00 07/11/18 16:59 Metoclopramide HCl (Reglan) 10 mg Q6 PRN NAUSEA / VOMITING 06/11/18 19:00 07/11/18 18:59 06/12/18 05:10 Morphine Sulfate (Morphine Sulfate) 1 mg Q4H PRN PAIN 4 - 6 06/11/18 12:00 07/11/18 11:59 Morphine Sulfate (Morphine Sulfate) 3 mg Q3H PRN PAIN 7 - 10 06/11/18 12:00 07/11/18 11:59 06/12/18 07:48 Pantoprazole Sodium (Protonix Iv) 40 mg DAILY 06/12/18 09:00 07/12/18 08:59 Potassium Chloride/Dextrose/ Sod Cl 1,000 ml @ 125 mls/hr Q8H 06/11/18 11:58 07/11/18 11:57 06/11/18 20:49 Risperidone (Risperdal) 0.5 mg DAILY24 06/12/18 09:00 07/12/18 08:59 Risperidone (Risperdal) 0.75 mg HS 06/11/18 21:00 07/11/18 20:59 06/11/18 20:51 Sertraline HCl (Zoloft) 50 mg DAILY 06/12/18 09:00 07/12/18 08:59 Simethicone (Genasyme) 80 mg Q4 PRN GAS/BLOATING 06/11/18 12:00 07/11/18 11:59 06/12/18 05:10 Sepsis Infection Criteria Pres: None LEVEL 1 SEPSIS INFECTION CRITE: Abdominal Pain, Recent Invasive Procedure LEVEL 2-SIRS (LIST ALL THAT AP: HR>90/min O2 Sat by Pulse Oximetry: 94 Oxygen Flow Rate: 2.00 Assessment/Plan Assessment/Plan Assessment/Plan 1. Colostomy Reversal - POD#2. Cont pain control, - Continue IV Abx. - Can transfer to floor today. - Increase pulm hygiene, activity. - Greatly appreciate Dr. Aragon. 2. DM: Cont holding home basal insulin. MDSSI to cover for now. - Will likely need to get ack on long acting in the next 48 hours.. 3. Seizure Disorder: cont keppra, - Ativan PRN 4. Generalized Anxiety Disorder: I think this is contributing to him not feeling well currently. - restart SSRI, Ativan PRN. Holding Xanax. 5. GERD: cont PPI 6. PPx: Lovenox, PPI PRIYANKA WAY MD Jun 13, 2018 10:30
--- NOTE | 2018-06-13 10:57 | NUR ---
Notified Dr. Aragon of patient's magnesium level of 1.7, new order received, give Magnesium sulfate 2 grams IVPB over 1 hour. RBAV.
[2018-06-13] MEDS ORDERED: MAGNESIUM SULFATE 50 ML IV ONE ×2 (11:08→11:30)
[2018-06-13] MEDS ORDERED: NS 250ML 250 ML IV ONE (11:13)
[2018-06-13] MEDS: NORCO 5MG PO PRN ×2 (11:40→20:59)
--- NOTE | 2018-06-13 12:00 | NUR ---
Lunch tray served.
--- NOTE | 2018-06-13 14:10 | NUR ---
Patient transported out of the unit via wheelchair, on with SPO2 at 92%, to room 328 along with his personal wheelchair and the rest of his personal belongings and wound care supplies. Report given to NADIA [place] and relinquished care.
--- NOTE | 2018-06-13 14:25 | NUR ---
ARRIVAL Pt ARRIVED TO THE UNIT IN FROM 328 FROM ICU, REPORT RECEIVED FROM ICU NURSE MEMO RN, OFFERED FLUIDS, PADDED SIDE RAILS FOR SEIZURE PRECAUTIONS. REENFORCED Pt TO USE CALL RECINOS FOR HELP, Pt VERBALIZED UNDERSTANDING.
[2018-06-13] MEDS: GENASYME PO PRN (15:32)
[2018-06-13 17:09] LABS: BASOPHIL % 0.3 % (0.0-0.2); EOSINOPHIL # 0.1 10^3/uL (0.0-0.2); EOSINOPHIL % 1.9 % (0.0-5.0); HEMOGLOBIN 8.8 g/dL (13.9-16.3); LYMPHOCYTES # 1.4 10^3/uL (1.0-4.8); LYMPHOCYTES % 19.9 % (24.0-44.0); MEAN CELL HGB 30.9 pg (26-34); MEAN CELL HGB CONCENTRATION 34.2 g/dL (33-37); MEAN CORP VOLUME 90.2 fL (78-100); MEAN PLATELET VOLUME 9.4 fL (7.8-11.0); MONOCYTES # 0.7 10^3/uL (0.3-0.8); MONOCYTES % 10.6 % (5.0-12.0); NEUTROPHIL # 4.6 10^3/uL (1.8-7.7); NEUTROPHILS % 66.4 % (41.0-85.0); WHITE BLOOD CELL 6.9 10^3/uL (4.5-11.0)
--- NOTE | 2018-06-14 00:16 | PNH ---
DATE: SUBJECTIVE: A 52-year-old male in no acute distress, seen in his room today. He continues to have poor ambulation; however, he is tolerating clears. OBJECTIVE: VITAL SIGNS: Last temperature is 98.4, pulse rate 115, respiratory rate of 18, blood pressure 141/81. ABDOMEN: Bowel sounds are positive. His midline incision intact with minimal drainage. The left lower quadrant incision shows minimal bloody drainage, but good granulation. LABORATORY DATA: Today show white count 8.0, repeat is 6.9, hemoglobin is 9.4, repeat is 8.8, and platelet count is 104, repeat is 108. ASSESSMENT: Status post exploratory laparotomy with colostomy reversal. PLAN: 1. The patient is seen and examined. Chart was reviewed. 2. He is noted to have a decrease in hemoglobin postoperatively. We will continue serial monitoring and he may require transfusion. Neal Aragon DO DR: OTIS/alex JOB# [id number] CC: Rodney Barbosa MD
[2018-06-14 00:56] VITALS: BP 138/73
[2018-06-14] MEDS: NORCO 5MG PO PRN ×2 (01:56→13:26)
[2018-06-14] MEDS: D5W-1/2 NS/KCL 20MEQ 1,000 ML IV SCH ×3 (03:58→23:34)
[2018-06-14 04:30] VITALS: BP 140/85
[2018-06-14 04:55] LABS: HEMOGLOBIN 8.7 g/dL (13.9-16.3); MEAN CELL HGB 31.1 pg (26-34); MEAN CELL HGB CONCENTRATION 34.3 g/dL (33-37); MEAN CORP VOLUME 90.7 fL (78-100); MEAN PLATELET VOLUME 9.4 fL (7.8-11.0); RED CELL DISTRIBUTION WIDTH 12.8 % (11.5-14.5); WHITE BLOOD CELL 6.2 10^3/uL (4.5-11.0)
[2018-06-14 05:25] LABS: CALCIUM 8.6 mg/dL (8.4-10.5); CARBON DIOXIDE 24.4 mmol/L (20.0-32)
--- NOTE | 2018-06-14 06:40 | NUR ---
REPORT RECEIVED REPORT, ASSUMED CARE FOR PATIENT AT THIS TIME.
[2018-06-14] MEDS: HUMULIN R SQ SCH ×4 (07:30→21:00)
[2018-06-14 08:18] VITALS: BP 175/103
[2018-06-14] MEDS: FIBERCON PO SCH (08:22)
[2018-06-14] MEDS: KEPPRA PO SCH ×2 (08:22→21:50)
[2018-06-14] MEDS: ZOLOFT PO SCH (08:22)
[2018-06-14] MEDS: ANTIVERT PO SCH ×3 (08:23→21:51)
[2018-06-14] MEDS: PROTONIX IV IV SCH (08:23)
[2018-06-14] MEDS: RISPERDAL PO SCH ×2 (09:00→21:51)
--- NOTE | 2018-06-14 10:00 | NUR ---
AMBULATION ASSISTED PATIENT WITH 2 NURSES AND WALKER AT THIS TIME TO AMBULATE 200 FEET. PATIENT AMBULATED WITH WEAK GAIT, BUT TOLERATED WELL.
--- NOTE | 2018-06-14 10:15 | NUR ---
ASSISTED PATIENT UP TO THE CHAIR AT THIS TIME. CALL LIGHT IN REACH, BED IS LOW AND LOCKED. WILL CONTINUE TO MONITOR.
[2018-06-14] MEDS: REGLAN IV PRN (10:21)
[2018-06-14 12:00] VITALS: BP 143/72
--- NOTE | 2018-06-14 13:25 | NUR ---
PAIN PATIENT REPORTS PAIN 7/10. PATIENT GIVEN NORCO 5MG AT THIS TIME. WILL REASSESS.
--- NOTE | 2018-06-14 13:35 | NUR ---
AMBULATION ASSISTED PATIENT TO AMBULATE 200 FEET WITH ASSISTANCE FROM TWO NURSES, A GAIT BELT, AND WALKER. ENCOURAGED PATIENT AFTER HE STATED "I DO NOT WANT TO WALK!." PATIENT AGREEABLE AFTER EDUCATION OF IMPORTANCE. PATIENT WAS ASSISTED INTO BED WITH BLE ELEVATED. CALL LIGHT IN REACH, BED IS LOW AND LOCKED. WILL CONTINUE TO MONITOR.
--- NOTE | 2018-06-14 15:10 | PRM.PN ---
Subjective Subjective Date: Jun 14, 2018 Time: 15:06 Subjective Overall doing better but had some nausea and CHEATHAM this AM. Donald clears otherwise. Passing gas Wounds doing well. Minimal pain. No other overnight events. Patient History: Diabetes mellitus G8 SISTER FH: brain tumor G8 BROTHER, FH: cancer 32 MOTHER, No known health problems 33 FATHER, Pacemaker 32 MOTHER, Relative being killed G8 SISTER, VTE VTE Risk Total Score: 5 VTE Risk Score VTE Risk: Score 0-1 = Low Risk (Aggressive mobilization; early ambulation; no VTE prophylaxis required) Score 2: Moderate Risk (Intermittent/Pneumatic Compression Device OR Lovenox/Heparin/Coumadin) Score 3-4: High Risk (Intermittent/Pneumatic Compression Device AND Lovenox/Heparin/Coumadin) Score > or =5: Highest Risk (Intermittent/Pneumatic Compression Device AND Lovenox/Heparin/Coumadin) Review of Systems Constitutional: No: Fever, Chills Eyes: No: Conjunctivae inflammation, Eyelid inflammation ENT: No: Nose discharge, Nose congestion Respiratory: No: Cough, Shortness of breath, SOB with excertion, Wheezing Cardiovascular: No: Chest Pain, Palpitations, Edema Gastrointestinal: Nausea, Abdominal Pain; No: Vomiting Genitourinary: No Hematuria, No Retention Musculoskeletal: neck pain, back pain Skin: Rash; No: Lesions, Jaundice, Bruising Neurological: No: Weakness, Numbness, Incoordination, Change in speech, Confusion, Seizures Allergies: Coded Allergies: No Known Allergies (Unverified , 06/07/18) Scheduled Alprazolam (Xanax), 1 TAB PO TID, (Reported) Clonidine Hcl (Clonidine Hcl), 1 TAB PO HS, (Reported) Cranberry (Cranberry), 450 MG PO BID, (Reported) Cyclobenzaprine Hcl (Flexeril), 1 TAB PO BID, (Reported) Docusate Sodium (Colace), 1 CAP PO BID, (Reported) Erythromycin Base (Erythromycin), 250 MG PO TID, (Reported) Furosemide (Lasix), 1 TAB PO DAILY, (Reported) Gabapentin (Gabapentin), 1 CAP PO HS, (Reported) Insulin Degludec (Tresiba), 20 UNITS SUBCUT DAILY24, (Reported) Insulin Regular, Human (Humulin R), 0 IJ QID, (Reported) Levetiracetam (Keppra), 1 TAB PO BID, (Reported) Meloxicam (Meloxicam), 1 TAB PO DAILY, (Reported) Omeprazole (Omeprazole), 1 TAB PO DAILY, (Reported) Psyllium Husk/Aspartame (Metamucil Sugar-Free Powder), 283 GM PO BID, (Reported) Risperidone (Risperdal), 1 TAB PO DAILY24, (Reported) Risperidone (Risperdal), 1.5 TAB PO HS, (Reported) Sertraline Hcl (Zoloft), 1 TAB PO DAILY, (Reported) Scheduled PRN Acetaminophen (Acetaminophen), 650 TAB PO Q4 PRN for FEVER, (Reported) Guaifenesin (Humaira-Tussin), 10 ML PO Q4 PRN for COUGH, (Reported) Loperamide Hcl (Loperamide), 2 MG PO PRN PRN for DIARRHEA, (Reported) Mag Hydrox/Al Hydrox/Simeth (Humaira-Lanta Liquid), 30 ML PO Q6 PRN for INDIGESTION , (Reported) Magnesium Hydroxide (Milk Of Magnesia), 30 MG PO DAILY24 PRN for CONSTIPATION, ( Reported) Na Phos,M-B/Na Phos,Di-Ba (Fleet Enema), 133 ML RC PRN PRN for CONSTIPATION, ( Reported) Tizanidine Hcl (Tizanidine Hcl), 0.5 TAB PO BID PRN for MUSCLE SPASM, (Reported) Discontinued Medications Loperamide HCl (Anti-Diarrheal), 2 MG PO RTPRN, (Reported) Discontinued Reason: Cancel Objective Vitals and I/O Vital Sign - Last 24 Hours 06/11/18 06/11/18 06/11/18 06/11/18 12:15 12:15 12:24 12:29 Temp 98.5 98.5 98.5 98.5 98.5 98.5 Pulse 71 70 76 Resp 18 18 18 B/P (MAP) 150/96 (114) 144/94 (111) 140/90 (107) Pulse Ox 100 100 100 O2 Delivery Non-Rebreather Non-Rebreather Room Air O2 Flow Rate 10 10 5 06/11/18 06/11/18 06/11/18 06/11/18 12:40 12:50 12:59 13:10 Temp 98.8 97.7 98.4 98.7 98.8 97.7 98.4 98.7 Pulse 83 79 81 79 Resp 18 18 18 18 B/P (MAP) 147/97 (114) 140/88 (105) 148/90 (109) 145/96 (112) Pulse Ox 98 96 97 99 O2 Delivery Nasal Canula Nasal Canula Nasal Canula Nasal Canula O2 Flow Rate 2 2 2 2 06/11/18 06/11/18 06/11/18 06/11/18 13:46 13:48 13:49 14:00 Temp 98.7 98.7 Pulse 100 78 Resp 10 10 16 16 B/P (MAP) 146/96 (113) 140/93 (109) Pulse Ox 79 79 98 99 O2 Delivery Nasal Cannula O2 Flow Rate 2.00 FiO2 28 06/11/18 06/11/18 06/11/18 06/11/18 14:15 14:25 14:30 14:45 Pulse 87 84 87 Resp 16 12 13 B/P (MAP) 142/88 (106) 141/88 (105) 145/92 (109) Pulse Ox 99 99 99 O2 Delivery Nasal Cannula O2 Flow Rate 2.00 06/11/18 06/11/18 06/11/18 06/11/18 15:00 15:15 15:30 15:45 Pulse 82 87 98 84 Resp 12 16 16 16 B/P (MAP) 145/93 (110) 145/87 (106) 165/91 (115) 134/85 (101) Pulse Ox 100 100 100 100 06/11/18 06/11/18 06/11/18 06/11/18 16:00 16:15 16:30 16:45 Pulse 81 93 79 78 Resp 16 10 10 10 B/P (MAP) 131/79 (96) 144/97 (113) 139/87 (104) 134/92 (106) Pulse Ox 100 100 100 100 06/11/18 06/11/18 06/11/18 06/11/18 17:00 17:10 17:15 17:30 Pulse 96 102 105 96 Resp 21 16 15 17 B/P (MAP) 139/90 (106) 143/93 (110) 111/80 (90) 132/85 (101) Pulse Ox 97 97 92 93 06/11/18 06/11/18 06/11/1806/11/19 17:45 18:00 18:15 18:30 Pulse 98 100 100 97 Resp 16 15 17 12 Pulse Ox 94 94 94 93 06/11/18 06/11/18 06/11/18 06/11/18 18:45 19:00 19:00 19:04 Temp 98.5 98.5 Pulse 97 98 91 Resp 13 14 12 B/P (MAP) 133/86 (102) Pulse Ox 95 96 97 O2 Delivery Nasal Cannula O2 Flow Rate 2.00 06/11/18 06/11/18 06/11/18 06/11/18 19:15 19:30 19:45 20:00 Pulse 90 92 88 96 Resp 13 14 11 16 B/P (MAP) 124/81 (95) 127/79 (95) 128/83 (98) 126/83 (97) Pulse Ox 93 94 94 97 06/11/18 06/11/18 06/11/18 06/11/18 20:15 20:30 20:45 21:00 Pulse 99 96 91 104 Resp 14 12 12 15 B/P (MAP) 122/84 (97) 124/83 (97) 125/82 (96) 121/84 (96) Pulse Ox 93 94 94 94 06/11/18 06/11/18 06/11/18 06/11/18 21:15 21:30 21:42 21:45 Pulse 101 101 90 105 Resp 13 16 18 16 B/P (MAP) 127/85 (99) 118/84 (95) 123/85 (98) Pulse Ox 94 95 94 94 O2 Delivery Nasal Cannula FiO2 21 06/11/18 06/11/18 06/11/18 06/11/18 22:00 22:15 22:30 22:45 Pulse 103 102 108 110 Resp 12 12 16 16 B/P (MAP) 128/81 (97) 127/86 (100) 124/83 (97) 117/82 (94) Pulse Ox 94 96 95 93 06/11/18 06/11/18 06/11/18 06/11/18 23:00 23:00 23:15 23:30 Pulse 103 108 119 Resp 22 14 12 B/P (MAP) 121/77 (92) 120/77 (91) 128/81 (97) Pulse Ox 93 94 95 O2 Delivery Room Air 06/11/18 06/12/18 06/12/18 06/12/18 23:46 00:00 00:15 00:30 Temp 98.4 98.4 Pulse 126 108 107 108 Resp 21 14 14 14 B/P (MAP) 148/89 (108) 130/87 (101) 120/79 (93) 125/82 (96) Pulse Ox 96 95 95 96 06/12/18 06/12/18 06/12/18 06/12/18 00:45 01:00 01:15 01:30 Pulse 110 109 109 109 Resp 14 13 15 15 B/P (MAP) 122/81 (95) 116/77 (90) 125/84 (98) 125/80 (95) Pulse Ox 94 95 96 95 06/12/18 06/12/18 06/12/18 06/12/18 01:45 02:00 02:15 02:27 Pulse 109 112 113 108 Resp 13 15 16 18 B/P (MAP) 119/79 (92) 123/77 (92) 130/84 (99) 146/85 (105) Pulse Ox 97 97 97 99 06/12/18 06/12/18 06/12/18 06/12/18 02:30 02:38 02:45 03:00 Pulse 118 113 112 107 Resp 21 18 17 13 B/P (MAP) 87/64 (72) 118/82 (94) 129/83 (98) 125/79 (94) Pulse Ox 96 97 98 99 06/12/18 06/12/18 06/12/18 06/12/18 03:15 03:30 03:45 04:00 Pulse 109 106 113 Resp 15 13 17 B/P (MAP) 122/81 (95) 127/80 (96) 130/75 (93) Pulse Ox 99 100 93 O2 Delivery Room Air 06/12/18 06/12/18 06/12/18 06/12/18 04:00 04:15 04:30 04:45 Temp 98.7 98.7 Pulse 108 111 109 102 Resp 16 16 16 13 B/P (MAP) 127/79 (95) 135/78 (97) 127/78 (94) 127/72 (90) Pulse Ox 95 95 94 95 06/12/18 06/12/18 06/12/18 06/12/18 05:00 05:15 05:30 05:45 Pulse 100 101 120 112 Resp 12 14 22 25 B/P (MAP) 136/78 (97) 130/78 (95) 118/74 (89) 127/85 (99) Pulse Ox 96 96 97 94 06/12/18 06/12/18 06/12/18 06/12/18 06:00 06:30 06:45 07:00 Pulse 107 105 102 107 Resp 16 14 15 14 B/P (MAP) 133/82 (99) 113/78 (90) 126/72 (90) 126/74 (91) Pulse Ox 95 96 93 95 06/12/18 06/12/18 06/12/18 06/12/18 07:15 07:30 07:45 08:00 Pulse 106 117 106 Resp 16 15 13 B/P (MAP) 126/73 (90) 112/81 (91) 115/69 (84) Pulse Ox 93 92 93 O2 Delivery Room Air 06/12/18 06/12/18 06/12/18 08:01 08:15 08:30 Temp 97.7 97.7 Pulse 114 109 108 Resp 18 14 14 B/P (MAP) 129/77 (94) 111/65 (80) 114/64 (81) Pulse Ox 96 94 92 Intake and Output 06/11/18 06/11/18 06/12/18 15:00 23:00 07:00 Intake Total 91059 ml 823 ml 1228 ml Output Total 250 ml 880 ml 1035 ml Balance 68022 ml -57 ml 193 ml General: Alert, Oriented X3, Cooperative, No acute distress HEENT: Atraumatic, PERRLA, EOMI, Mucous membr. moist/pink Lungs: Clear to auscultation, Normal air movement Heart: Regular rate, Normal S1, Normal S2, No murmurs Abdomen: Soft, Other (mild tenderness to palpation umbilical area, dressing in place over ostomy, surgical incision, MAGNOLIA in place) Neuro: Normal speech, Cranial nerves 3-12 NL Psych/Mental Status: Mental status NL, Mood NL All Results(Lab/Rad) Laboratory Tests Test 06/11/18 17:00 06/11/18 17:30 06/11/18 17:33 06/12/18 05:00 White Blood Count 16.2 10^3/uL 12.9 10^3/uL Red Blood Count 4.30 10^6/uL 3.66 10^6/uL Hemoglobin 13.1 g/dL 11.2 g/dL Hematocrit 38.0 % 32.7 % Mean Corpuscular Volume 88.4 fL 89.3 fL Mean Corpuscular Hemoglobin 30.5 pg 30.6 pg Mean Corpuscular Hemoglobin Concent 34.5 g/dL 34.3 g/dL Red Cell Distribution Width 13.2 % 13.3 % Platelet Count 115 10^3/uL 146 10^3/uL Mean Platelet Volume 9.6 fL 9.6 fL Neutrophils (%) (Auto) 87.3 % 77.7 % Lymphocytes (%) (Auto) 5.0 % 12.3 % Monocytes (%) (Auto) 7.2 % 9.6 % Neutrophils # (Auto) 14.1 10^3/uL 10.0 10^3/uL Lymphocytes # (Auto) 0.8 10^3/uL 1.6 10^3/uL Monocytes # (Auto) 1.2 10^3/uL 1.2 10^3/uL Absolute Immature Granulocyte (auto 0.07 10^3 u/L 0.04 10^3 u/L Eosinophils % 0.0 % 0.0 % Basophils % 0.1 % 0.1 % Basophils # 0.0 10^3/uL 0.0 10^3/uL Eosinophil Count 0.0 10^3/uL 0.0 10^3/uL Percent Immature Gran (Cell Imm) 0.40 % 0.30 % Sodium Level 134 mmol/L 136 mmol/L Potassium Level 4.6 mmol/L 4.8 mmol/L Chloride Level 102.0 mmol/L 102.0 mmol/L Carbon Dioxide Level 18.9 mmol/L 23.6 mmol/L Anion Gap 17.7 15.2 Blood Urea Nitrogen 9 mg/dL 10 mg/dL Creatinine 0.81 mg/dL 0.96 mg/dL Estimated GFR () 120.2 98.8 BUN/Creatinine Ratio 11.0 10.0 Glucose Level 315 mg/dL 280 mg/dL Calcium Level 8.1 mg/dL 8.3 mg/dL Total Bilirubin 0.8 mg/dL 0.8 mg/dL Aspartate Amino Transf (AST/SGOT) 26 U/L 19 U/L Alanine Aminotransferase (ALT/SGPT) 33 U/L 30 U/L Alkaline Phosphatase 114 U/L 97 U/L Total Protein 6.3 g/dL 6.2 g/dL Albumin 3.0 g/dL 2.8 g/dL Globulin 3.3 3.4 Differential Total Cells Counted 100 #CELLS Segmented Neutrophils 92 % Lymphocytes 3 % Monocytes 5 % Differential Comment NORMAL Platelet Estimate ADEQUATE Platelet Morphology NORMAL Blood Morphology Comment NORMAL MORPHOLOGY Current Medications Medications (Trade) Dose Ordered Sig/Escobar Route PRN Reason Start Time Stop Time Status Last Admin Dose Admin Enoxaparin Sodium (Lovenox) 40 mg OT ONCE SQ 06/11/18 06:45 06/11/18 16:12 DC 06/11/18 06:53 Cefoxitin Sodium (Mefoxin) 1 gm STK-MED ONCE .ROUTE 06/11/18 05:55 06/11/18 05:56 DC Sodium Chloride 100 ml @ ud STK-MED ONCE IV 06/11/18 05:55 06/11/18 05:57 DC Dexamethasone Sodium Phosphate (Decadron) 4 mg STK-MED ONCE .ROUTE 06/11/18 06:46 06/11/18 06:47 DC Neostigmine Methylsulfate (Neostigmine) 10 mg STK-MED ONCE .ROUTE 06/11/18 06:46 06/11/18 06:48 DC Ondansetron HCl (Zofran) 4 mg STK-MED ONCE .ROUTE 06/11/18 06:46 06/11/18 06:48 DC Ketorolac Tromethamine (Toradol) 30 mg STK-MED ONCE .ROUTE 06/11/18 06:46 06/11/18 06:48 DC Rocuronium [place] (Zemuron) 100 mg STK-MED ONCE IV 06/11/18 06:46 06/11/18 06:48 DC Hydromorphone HCl (Dilaudid) 2 mg STK-MED ONCE .ROUTE 06/11/18 06:47 06/11/18 06:48 DC Fentanyl Citrate (Sublimaze) 100 mcg STK-MED ONCE .ROUTE 06/11/18 06:47 06/11/18 06:49 DC Propofol (Diprivan) 200 mg STK-MED ONCE IV 06/11/18 06:47 06/11/18 06:49 DC Midazolam HCl (Versed) 1 mg STK-MED ONCE .ROUTE 06/11/18 06:48 06/11/18 06:49 DC Lidocaine HCl (Lidocaine 2% Vial) 500 mg STK-MED ONCE .ROUTE 06/11/18 06:48 06/11/18 06:50 DC Sodium Chloride (Sodium Chloride) 1,000 ml STK-MED ONCE IR 06/11/18 07:00 06/11/18 07:02 DC Sterile Water (Water) 1,000 ml STK-MED ONCE .ROUTE 06/11/18 07:01 06/11/18 07:02 DC Bupivacaine HCl (Sensorcaine-Mpf 0.25% Vial) 2.5 mg STK-MED ONCE .ROUTE 06/11/18 07:01 06/11/18 07:02 DC Labetalol HCl (Trandate) 20 mg STK-MED ONCE IV 06/11/18 07:22 06/11/18 07:23 DC Sodium Chloride 1,000 ml @ ud STK-MED ONCE .ROUTE 06/11/18 08:41 06/11/18 08:42 DC Sterile Water (Water) 1,000 ml STK-MED ONCE .ROUTE 06/11/18 09:30 06/11/18 09:32 DC Sterile Water (Water) 1,000 ml STK-MED ONCE .ROUTE 06/11/18 09:46 06/11/18 09:47 DC Cefoxitin Sodium (Mefoxin) 1 gm STK-MED ONCE .ROUTE 06/11/18 10:34 06/11/18 10:35 DC Sodium Chloride 100 ml @ ud STK-MED ONCE IV 06/11/18 10:34 06/11/18 10:35 DC Sterile Water (Water) 1,000 ml STK-MED ONCE .ROUTE 06/11/18 11:04 06/11/18 11:05 DC Morphine Sulfate (Morphine Sulfate) 1 mg Q4H PRN IV PAIN 4 - 6 06/11/18 12:00 07/11/18 11:59 Morphine Sulfate (Morphine Sulfate) 3 mg Q3H PRN IV PAIN 7 - 10 06/11/18 12:00 07/11/18 11:59 06/12/18 07:48 Acetaminophen/ Hydrocodone Bitart ([place] 5mg) 1 ea Q4H PRN PO PAIN 4 - 6 06/11/18 12:00 07/11/18 11:59 06/11/18 20:50 Acetaminophen (Tylenol) 650 mg Q6 PRN PO FEVER/MILD PAIN 06/11/18 12:00 07/11/18 11:59 Pantoprazole Sodium (Protonix Iv) 40 mg DAILY IV 06/12/18 09:00 07/12/18 08:59 Simethicone (Genasyme) 80 mg Q4 PRN PO GAS/BLOATING 06/11/18 12:00 07/11/18 11:59 06/12/18 05:10 Enoxaparin Sodium (Lovenox) 40 mg DAILY@0830 SQ 06/12/18 08:30 07/12/18 08:29 Potassium Chloride/Dextrose/ Sod Cl 1,000 ml @ 125 mls/hr Q8H IV 06/11/18 11:58 07/11/18 11:57 06/11/18 20:49 Hydromorphone HCl (Dilaudid) 1 mg Q4H PRN IV PAIN 7 - 10 06/11/18 12:00 07/11/18 11:59 Cefoxitin Sodium 1 gm/Sodium Chloride 100 ml @ 100 mls/hr Q6 IV 06/11/18 12:00 06/12/18 07:17 DC 06/12/18 05:27 Sodium Chloride 1,000 ml @ [facility] ONCE .ROUTE 06/11/18 12:08 06/11/18 12:09 DC Hydromorphone HCl (Dilaudid) 0.2 mg Q5MIN PRN IV PAIN 1 - 3 06/11/18 12:30 06/11/18 16:06 DC 06/11/18 12:54 Ondansetron HCl (Zofran) 4 mg PRN PRN IV nv 06/11/18 12:30 06/11/18 16:13 DC Promethazine HCl (Phenergan) 6.25 mg PRN PRN IV NAUSEA / VOMITING 06/11/18 12:30 06/11/18 16:13 DC Diphenhydramine HCl (Benadryl) 25 mg Q5MIN PRN IV NAUSEA / VOMITING 06/11/18 12:30 06/11/18 16:06 DC Acetaminophen (Tylenol) 325 mg Q4 PRN PO FEVER 06/11/18 17:00 07/11/18 16:59 Levetiracetam (Keppra) 500 mg BID PO 06/11/18 21:00 07/11/18 20:59 06/11/18 20:51 Sertraline HCl (Zoloft) 50 mg DAILY PO 06/12/18 09:00 07/12/18 08:59 Risperidone (Risperdal) 0.5 mg DAILY24 PO 06/12/18 09:00 07/12/18 08:59 Risperidone (Risperdal) 0.75 mg HS PO 06/11/18 21:00 07/11/18 20:59 06/11/18 20:51 Insulin Human Regular (Humulin R) Give 30 minutes before meal ACHS SQ 06/11/18 17:30 07/11/18 17:29 06/11/18 21:55 Dextrose (Dextrose 50%-Water Syringe) 25 ml STAT PRN IV HYPOGLYCEMIA 06/11/18 17:00 07/11/18 16:59 Lorazepam (Ativan) 1 mg Q4HR PRN IM AGITATION 06/11/18 17:00 07/11/18 16:59 Metoclopramide HCl (Reglan) 10 mg Q6 PRN IV NAUSEA / VOMITING 06/11/18 19:00 07/11/18 18:59 06/12/18 05:10 Course Sepsis Screening Results: Posi: NEGATIVE Sepsis Qualifier/Stage: NO DEFINITE RISK Vitals & review Data Vital Sign - Last 24 Hours 06/11/18 06/11/18 06/11/18 06/11/18 12:15 12:15 12:24 12:29 Temp 98.5 98.5 98.5 98.5 98.5 98.5 Pulse 71 70 76 Resp 18 18 18 B/P (MAP) 150/96 (114) 144/94 (111) 140/90 (107) Pulse Ox 100 100 100 O2 Delivery Non-Rebreather Non-Rebreather Room Air O2 Flow Rate 10 10 5 06/11/18 06/11/18 06/11/18 06/11/18 12:40 12:50 12:59 13:10 Temp 98.8 97.7 98.4 98.7 98.8 97.7 98.4 98.7 Pulse 83 79 81 79 Resp 18 18 18 18 B/P (MAP) 147/97 (114) 140/88 (105) 148/90 (109) 145/96 (112) Pulse Ox 98 96 97 99 O2 Delivery Nasal Canula Nasal Canula Nasal Canula Nasal Canula O2 Flow Rate 2 2 2 2 06/11/18 06/11/18 06/11/18 06/11/18 13:46 13:48 13:49 14:00 Temp 98.7 98.7 Pulse 100 78 Resp 10 10 16 16 B/P (MAP) 146/96 (113) 140/93 (109) Pulse Ox 79 79 98 99 O2 Delivery Nasal Cannula O2 Flow Rate 2.00 FiO2 28 06/11/18 06/11/18 06/11/18 06/11/18 14:15 14:25 14:30 14:45 Pulse 87 84 87 Resp 16 12 13 B/P (MAP) 142/88 (106) 141/88 (105) 145/92 (109) Pulse Ox 99 99 99 O2 Delivery Nasal Cannula O2 Flow Rate 2.00 06/11/18 06/11/18 06/11/18 06/11/18 15:00 15:15 15:30 15:45 Pulse 82 87 98 84 Resp 12 16 16 16 B/P (MAP) 145/93 (110) 145/87 (106) 165/91 (115) 134/85 (101) Pulse Ox 100 100 100 100 06/11/18 06/11/18 06/11/18 06/11/18 16:00 16:15 16:30 16:45 Pulse 81 93 79 78 Resp 16 10 10 10 B/P (MAP) 131/79 (96) 144/97 (113) 139/87 (104) 134/92 (106) Pulse Ox 100 100 100 100 06/11/18 06/11/18 06/11/18 06/11/18 17:00 17:10 17:15 17:30 Pulse 96 102 105 96 Resp 21 16 15 17 B/P (MAP) 139/90 (106) 143/93 (110) 111/80 (90) 132/85 (101) Pulse Ox 97 97 92 93 06/11/18 06/11/18 06/11/18 06/11/18 17:45 18:00 18:15 18:30 Pulse 98 100 100 97 Resp 16 15 17 12 Pulse Ox 94 94 94 93 3/06/11/18 06/11/18 06/11/18 18:45 19:00 19:00 19:04 Temp 98.5 98.5 Pulse 97 98 91 Resp 13 14 12 B/P (MAP) 133/86 (102) Pulse Ox 95 96 97 O2 Delivery Nasal Cannula O2 Flow Rate 2.00 06/11/18 06/11/18 06/11/18 06/11/18 19:15 19:30 19:45 20:00 Pulse 90 92 88 96 Resp 13 14 11 16 B/P (MAP) 124/81 (95) 127/79 (95) 128/83 (98) 126/83 (97) Pulse Ox 93 94 94 97 06/11/18 06/11/18 06/11/18 06/11/18 20:15 20:30 20:45 21:00 Pulse 99 96 91 104 Resp 14 12 12 15 B/P (MAP) 122/84 (97) 124/83 (97) 125/82 (96) 121/84 (96) Pulse Ox 93 94 94 94 06/11/18 06/11/18 06/11/18 06/11/18 21:15 21:30 21:42 21:45 Pulse 101 101 90 105 Resp 13 16 18 16 B/P (MAP) 127/85 (99) 118/84 (95) 123/85 (98) Pulse Ox 94 95 94 94 O2 Delivery Nasal Cannula FiO2 21 06/11/18 06/11/18 06/11/18 06/11/18 22:00 22:15 22:30 22:45 Pulse 103 102 108 110 Resp 12 12 16 16 B/P (MAP) 128/81 (97) 127/86 (100) 124/83 (97) 117/82 (94) Pulse Ox 94 96 95 93 06/11/18 06/11/18 06/11/18 06/11/18 23:00 23:00 23:15 23:30 Pulse 103 108 119 Resp 22 14 12 B/P (MAP) 121/77 (92) 120/77 (91) 128/81 (97) Pulse Ox 93 94 95 O2 Delivery Room Air 06/11/18 06/12/18 06/12/18 06/12/18 23:46 00:00 00:15 00:30 Temp 98.4 98.4 Pulse 126 108 107 108 Resp 21 14 14 14 B/P (MAP) 148/89 (108) 130/87 (101) 120/79 (93) 125/82 (96) Pulse Ox 96 95 95 96 06/12/18 06/12/18 06/12/18 06/12/18 00:45 01:00 01:15 01:30 Pulse 110 109 109 109 Resp 14 13 15 15 B/P (MAP) 122/81 (95) 116/77 (90) 125/84 (98) 125/80 (95) Pulse Ox 94 95 96 95 06/12/18 06/12/18 06/12/18 06/12/18 01:45 02:00 02:15 02:27 Pulse 109 112 113 108 Resp 13 15 16 18 B/P (MAP) 119/79 (92) 123/77 (92) 130/84 (99) 146/85 (105) Pulse Ox 97 97 97 99 06/12/18 06/12/18 06/12/18 06/12/18 02:30 02:38 02:45 03:00 Pulse 118 113 112 107 Resp 21 18 17 13 B/P (MAP) 87/64 (72) 118/82 (94) 129/83 (98) 125/79 (94) Pulse Ox 96 97 98 99 06/12/18 06/12/18 06/12/18 06/12/18 03:15 03:30 03:45 04:00 Pulse 109 106 113 Resp 15 13 17 B/P (MAP) 122/81 (95) 127/80 (96) 130/75 (93) Pulse Ox 99 100 93 O2 Delivery Room Air 06/12/18 06/12/18 06/12/18 06/12/18 04:00 04:15 04:30 04:45 Temp 98.7 98.7 Pulse 108 111 109 102 Resp 16 16 16 13 B/P (MAP) 127/79 (95) 135/78 (97) 127/78 (94) 127/72 (90) Pulse Ox 95 95 94 95 06/12/18 06/12/18 06/12/18 06/12/18 05:00 05:15 05:30 05:45 Pulse 100 101 120 112 Resp 12 14 22 25 B/P (MAP) 136/78 (97) 130/78 (95) 118/74 (89) 127/85 (99) Pulse Ox 96 96 97 94 06/12/18 06/12/18 06/12/18 06/12/18 06:00 06:30 06:45 07:00 Pulse 107 105 102 107 Resp 16 14 15 14 B/P (MAP) 133/82 (99) 113/78 (90) 126/72 (90) 126/74 (91) Pulse Ox 95 96 93 95 06/12/18 06/12/18 06/12/18 06/12/18 07:15 07:30 07:45 08:00 Pulse 106 117 106 Resp 16 15 13 B/P (MAP) 126/73 (90) 112/81 (91) 115/69 (84) Pulse Ox 93 92 93 O2 Delivery Room Air 06/12/18 06/12/18 06/12/18 08:01 08:15 08:30 Temp 97.7 97.7 Pulse 114 109 108 Resp 18 14 14 B/P (MAP) 129/77 (94) 111/65 (80) 114/64 (81) Pulse Ox 96 94 92 Intake and Output 06/11/18 06/11/18 06/12/18 15:00 23:00 07:00 Intake Total 98906 ml 823 ml 1228 ml Output Total 250 ml 880 ml 1035 ml Balance 55643 ml -57 ml 193 ml Laboratory Tests Test 06/11/18 17:00 06/11/18 17:30 06/11/18 17:33 06/12/18 05:00 White Blood Count 16.2 10^3/uL 12.9 10^3/uL Red Blood Count 4.30 10^6/uL 3.66 10^6/uL Hemoglobin 13.1 g/dL 11.2 g/dL Hematocrit 38.0 % 32.7 % Mean Corpuscular Volume 88.4 fL 89.3 fL Mean Corpuscular Hemoglobin 30.5 pg 30.6 pg Mean Corpuscular Hemoglobin Concent 34.5 g/dL 34.3 g/dL Red Cell Distribution Width 13.2 % 13.3 % Platelet Count 115 10^3/uL 146 10^3/uL Mean Platelet Volume 9.6 fL 9.6 fL Neutrophils (%) (Auto) 87.3 % 77.7 % Lymphocytes (%) (Auto) 5.0 % 12.3 % Monocytes (%) (Auto) 7.2 % 9.6 % Neutrophils # (Auto) 14.1 10^3/uL 10.0 10^3/uL Lymphocytes # (Auto) 0.8 10^3/uL 1.6 10^3/uL Monocytes # (Auto) 1.2 10^3/uL 1.2 10^3/uL Absolute Immature Granulocyte (auto 0.07 10^3 u/L 0.04 10^3 u/L Eosinophils % 0.0 % 0.0 % Basophils % 0.1 % 0.1 % Basophils # 0.0 10^3/uL 0.0 10^3/uL Eosinophil Count 0.0 10^3/uL 0.0 10^3/uL Percent Immature Gran (Cell Imm) 0.40 % 0.30 % Sodium Level 134 mmol/L 136 mmol/L Potassium Level 4.6 mmol/L 4.8 mmol/L Chloride Level 102.0 mmol/L 102.0 mmol/L Carbon Dioxide Level 18.9 mmol/L 23.6 mmol/L Anion Gap 17.7 15.2 Blood Urea Nitrogen 9 mg/dL 10 mg/dL Creatinine 0.81 mg/dL 0.96 mg/dL Estimated GFR () 120.2 98.8 BUN/Creatinine Ratio 11.0 10.0 Glucose Level 315 mg/dL 280 mg/dL Calcium Level 8.1 mg/dL 8.3 mg/dL Total Bilirubin 0.8 mg/dL 0.8 mg/dL Aspartate Amino Transf (AST/SGOT) 26 U/L 19 U/L Alanine Aminotransferase (ALT/SGPT) 33 U/L 30 U/L Alkaline Phosphatase 114 U/L 97 U/L Total Protein 6.3 g/dL 6.2 g/dL Albumin 3.0 g/dL 2.8 g/dL Globulin 3.3 3.4 Differential Total Cells Counted 100 #CELLS Segmented Neutrophils 92 % Lymphocytes 3 % Monocytes 5 % Differential Comment NORMAL Platelet Estimate ADEQUATE Platelet Morphology NORMAL Blood Morphology Comment NORMAL MORPHOLOGY Current Medications Medications (Trade) Dose Ordered Sig/Escobar PRN Reason Start Time Stop Time Status Last Admin Acetaminophen (Tylenol) 325 mg Q4 PRN FEVER 06/11/18 17:00 07/11/18 16:59 Acetaminophen (Tylenol) 650 mg Q6 PRN FEVER/MILD PAIN 06/11/18 12:00 07/11/18 11:59 Acetaminophen/ Hydrocodone Bitart (Dowling 5mg) 1 ea Q4H PRN PAIN 4 - 6 06/11/18 12:00 07/11/18 11:59 06/11/18 20:50 Dextrose (Dextrose 50%-Water Syringe) 25 ml STAT PRN HYPOGLYCEMIA 06/11/18 17:00 07/11/18 16:59 Enoxaparin Sodium (Lovenox) 40 mg DAILY@0830 06/12/18 08:30 07/12/18 08:29 Hydromorphone HCl (Dilaudid) 1 mg Q4H PRN PAIN 7 - 10 06/11/18 12:00 07/11/18 11:59 Insulin Human Regular (Humulin R) Give 30 minutes before meal ACHS 06/11/18 17:30 07/11/18 17:29 06/11/18 21:55 Levetiracetam (Keppra) 500 mg BID 06/11/18 21:00 07/11/18 20:59 06/11/18 20:51 Lorazepam (Ativan) 1 mg Q4HR PRN AGITATION 06/11/18 17:00 07/11/18 16:59 Metoclopramide HCl (Reglan) 10 mg Q6 PRN NAUSEA / VOMITING 06/11/18 19:00 07/11/18 18:59 06/12/18 05:10 Morphine Sulfate (Morphine Sulfate) 1 mg Q4H PRN PAIN 4 - 6 06/11/18 12:00 07/11/18 11:59 Morphine Sulfate (Morphine Sulfate) 3 mg Q3H PRN PAIN 7 - 10 06/11/18 12:00 07/11/18 11:59 06/12/18 07:48 Pantoprazole Sodium (Protonix Iv) 40 mg DAILY 06/12/18 09:00 07/12/18 08:59 Potassium Chloride/Dextrose/ Sod Cl 1,000 ml @ 125 mls/hr Q8H 06/11/18 11:58 07/11/18 11:57 06/11/18 20:49 Risperidone (Risperdal) 0.5 mg DAILY24 06/12/18 09:00 07/12/18 08:59 Risperidone (Risperdal) 0.75 mg HS 06/11/18 21:00 07/11/18 20:59 06/11/18 20:51 Sertraline HCl (Zoloft) 50 mg DAILY 06/12/18 09:00 07/12/18 08:59 Simethicone (Genasyme) 80 mg Q4 PRN GAS/BLOATING 06/11/18 12:00 07/11/18 11:59 06/12/18 05:10 Sepsis Infection Criteria Pres: None LEVEL 1 SEPSIS INFECTION CRITE: Abdominal Pain, Recent Invasive Procedure LEVEL 2-SIRS (LIST ALL THAT AP: HR>90/min Cardiovascular Evidence: Not Assessed or None Hematologic Evidence: None/Not assessed Hepatic Evidence: None/Not assessed Metabolic Evidence: None/Not assessed Neurological Evidence: None/Not assessed Respiratory Evidence: None/Not assessed Renal Evidence: None/Not assessed O2 Sat by Pulse Oximetry: 93 Oxygen Flow Rate: 2.00 Assessment/Plan Assessment/Plan Assessment/Plan 1. Colostomy Reversal - POD#3. Cont pain control, - Continue IV Abx. - ADAT per Dr. Aragon - Increase pulm hygiene, activity. - Greatly appreciate Dr. Aragon. 2. DM: Cont holding home basal insulin. MDSSI to cover for now. - Will likely need to get ack on long acting insulin when eating more. 3. Seizure Disorder: cont keppra, - Ativan PRN 4. Generalized Anxiety Disorder: I think this is contributing to him not feeling well currently. - restart SSRI, Ativan PRN. Holding Xanax. 5. GERD: cont PPI 6. PPx: Lovenox, PPI Plan PRIYANKA WAY MD Jun 14, 2018 15:10
[2018-06-14 16:22] VITALS: BP 165/92
[2018-06-14 20:00] VITALS: BP_SYST 147; BP_SYST 178; BP_DIAS 109; BP_DIAS 59
[2018-06-15] VITALS (7 sets, daily range): BP systolic 132–164; BP diastolic 67–107
[2018-06-15] MEDS: MORPHINE SULFATE IV PRN (03:00)
--- NOTE | 2018-06-15 04:06 | PNH ---
DATE: 06/14/2018 BRIEF FOLLOWUP VISIT SUBJECTIVE: A 52-year-old male in no acute distress. He is seen in his room. Apparently, he had some time up since initial evaluation this morning. He was up ambulating and moving around. OBJECTIVE: VITAL SIGNS: Last temperature is 97.9, pulse 111, respiratory rate 16, blood pressure 175/103. ABDOMEN: The bowel sounds are positive and soft. Incision is intact. Packing is changed in the left lower quadrant by the wound nurse. LABORATORY DATA: Labs today show a white count of 6.2, hemoglobin 8.7, platelet count is 114. Chemistry shows a BUN of 3, creatinine of 0.71. ASSESSMENTS: 1. Status post exploratory laparotomy with reversal of colostomy. 2. History of diabetes. 3. History of hypertension. PLAN: 1. The patient is seen and examined. Chart is reviewed. 2. Advance diet as tolerated. Increase activity as tolerated. Continue medical management per the primary service. Neal Aragon DO DR: OTIS/alex JOB# [id number] CC: Rodney Barbosa MD
--- NOTE | 2018-06-15 06:40 | NUR ---
REPORT RECEIVED REPORT, ASSUMED CARE FOR PATIENT AT THIS TIME.
--- NOTE | 2018-06-15 07:40 | NUR ---
MAGNOLIA DRAIN DISCONTINUED AT THIS TIME WITHOUT DIFFICULTY. SITE WAS DRESSED WITH 4X4 GAUZE AND MEDIPORE TAPE. WOUND CARE DONE ON MIDLINE INCISION WITH WOUND CLEANSER. INCISION TO LLQ CLEANSED WITH WOUND CLEANSER, PACKED WITH 1/4" IODIFORM BY , PLACED 4X4 GAUZE, AND COVERED WITH MEDIPORE TAPE. DRESSING IS C/D/I WITH TIME STAMP, DATE, AND INITIALS. CALL LIGHT IN REACH, BED IS LOW AND LOCKED. WILL CONTINUE TO MONITOR.
--- NOTE | 2018-06-15 07:45 | NUR ---
AMBULATION ASSISTED PATIENT TO AMBULATE WITH WALKER AND GAIT BELT 220 FEET. PATIENT WAS THEN ASSISTED UP INTO CHAIR WITH BLE ELEVATED. PATIENT DENIES PAIN, DENIES UNMET NEEDS AT THIS TIME.
[2018-06-15] MEDS: REGLAN IV PRN (08:07)
[2018-06-15] MEDS: ANTIVERT PO SCH ×3 (08:08→21:16)
[2018-06-15] MEDS: HUMULIN R SQ SCH ×4 (10:15→21:18)
[2018-06-15] MEDS: FIBERCON PO SCH ×2 (10:23→14:30)
[2018-06-15] MEDS: RISPERDAL PO SCH ×2 (10:23→21:16)
[2018-06-15] MEDS: KEPPRA PO SCH ×2 (10:23→21:16)
[2018-06-15] MEDS: ZOLOFT PO SCH (10:23)
[2018-06-15] MEDS: NORCO 5MG PO PRN (10:24)
[2018-06-15] MEDS: PROTONIX IV IV SCH (10:24)
--- NOTE | 2018-06-15 10:30 | NUR ---
AMBULATION ASSISTED PATIENT UP FROM CHAIR WITH X1 ASSIST, GAIT BELT, AND WALKER TO AMBULATE 150 FEET. PATIENT TOLERATED AMBULATION WELL. PATIENT REQUESTED TO GET BACK INTO BED AT THIS TIME. CALL LIGHT IN REACH, BED IS LOW AND LOCKED. WILL CONTINUE TO MONITOR.
--- NOTE | 2018-06-15 12:10 | NUR ---
AMBULATION ASSISTED PATIENT WITH GAIT BELT AND WALKER WITH X1 ASSIST TO AMBULATE 200 FEET. PATIENT TOLERATED WELL, REQUIRED ENCOURAGEMENT. PATIENT WAS ASSISTED UP TO THE CHAIR AT THIS TIME. DENIES PAIN, DENIES UNMET NEEDS. PATIENT STATES "IM READY TO GO, YOUR TRYING TO KILL ME." THIS NURSE REASSURED THE IMPORTANCE OF FREQUENT AMBULATION, AND ENCOURAGED PATIENT THAT HE WAS DOING A GREAT JOB AND GETTING STRONGER. PATIENT VOICED UNDERSTANDING. CALL LIGHT IN REACH, WILL CONTINUE TO MONITOR.
[2018-06-15] MEDS: COZAAR PO SCH (13:08)
--- NOTE | 2018-06-15 14:20 | PNH ---
DATE: SUBJECTIVE: A 52-year-old male, in no acute distress, seen in his room this morning with the nursing service. He is tolerating clear liquids. He is passing gas. He is ambulating now and increasing the distance he can walk, doing well. OBJECTIVE: VITAL SIGNS: Last temperature was 98.2, pulse 117, respiratory rate of 18, blood pressure 160/107. ABDOMEN: Bowel sounds are positive. Midline incision has significant changes consistent with hematoma postoperatively. The left lower quadrant incision is granulating and healing well. LABORATORY DATA: There are no labs for today. IMPRESSION: 1. Status post exploratory laparotomy with reversal of colostomy. 2. History of diabetes. 3. Postop bleeding in the subcutaneous space. 4. Hypertension. PLAN: 1. The patient is seen and examined. Chart is reviewed. 2. Increase diet and activity as tolerated. 3. Continue medical management per primary service. When this patient improves adequately, we will likely discharge, return to extended care facility. Neal Aragon DO DR: OTIS/alex JOB# [id number] CC: Rodney Barbosa MD
--- NOTE | 2018-06-15 14:35 | NUR ---
PRISON SPOKE WITH NURSING STAFF AT [facility]. THEY ARE ABLE TO PICK PT UP TOMORROW IF DISCHARGED.
--- NOTE | 2018-06-15 16:47 | PRM.PN ---
Subjective Subjective Date: Jun 15, 2018 Time: 16:43 Subjective Overall doing better, No complaints. Nausea improving. Pain much improved. Patient History: Diabetes mellitus G8 SISTER FH: brain tumor G8 BROTHER, FH: cancer 32 MOTHER, No known health problems 33 FATHER, Pacemaker 32 MOTHER, Relative being killed G8 SISTER, VTE VTE Risk Total Score: 5 VTE Risk Score VTE Risk: Score 0-1 = Low Risk (Aggressive mobilization; early ambulation; no VTE prophylaxis required) Score 2: Moderate Risk (Intermittent/Pneumatic Compression Device OR Lovenox/Heparin/Coumadin) Score 3-4: High Risk (Intermittent/Pneumatic Compression Device AND Lovenox/Heparin/Coumadin) Score > or =5: Highest Risk (Intermittent/Pneumatic Compression Device AND Lovenox/Heparin/Coumadin) Review of Systems Constitutional: No: Fever, Chills Eyes: No: Conjunctivae inflammation, Eyelid inflammation ENT: No: Nose discharge, Nose congestion Respiratory: No: Cough, Shortness of breath, SOB with excertion, Wheezing Cardiovascular: No: Chest Pain, Palpitations, Edema Gastrointestinal: Nausea, Abdominal Pain; No: Vomiting Genitourinary: No Hematuria, No Retention Musculoskeletal: neck pain, back pain Skin: Rash; No: Lesions, Jaundice, Bruising Neurological: No: Weakness, Numbness, Incoordination, Change in speech, Confusion, Seizures Allergies: Coded Allergies: No Known Allergies (Unverified , 06/07/18) Scheduled Alprazolam (Xanax), 1 TAB PO TID, (Reported) Clonidine Hcl (Clonidine Hcl), 1 TAB PO HS, (Reported) Cranberry (Cranberry), 450 MG PO BID, (Reported) Cyclobenzaprine Hcl (Flexeril), 1 TAB PO BID, (Reported) Docusate Sodium (Colace), 1 CAP PO BID, (Reported) Erythromycin Base (Erythromycin), 250 MG PO TID, (Reported) Furosemide (Lasix), 1 TAB PO DAILY, (Reported) Gabapentin (Gabapentin), 1 CAP PO HS, (Reported) Insulin Degludec (Tresiba), 20 UNITS SUBCUT DAILY24, (Reported) Insulin Regular, Human (Humulin R), 0 IJ QID, (Reported) Levetiracetam (Keppra), 1 TAB PO BID, (Reported) Meloxicam (Meloxicam), 1 TAB PO DAILY, (Reported) Omeprazole (Omeprazole), 1 TAB PO DAILY, (Reported) Psyllium Husk/Aspartame (Metamucil Sugar-Free Powder), 283 GM PO BID, (Reported) Risperidone (Risperdal), 1 TAB PO DAILY24, (Reported) Risperidone (Risperdal), 1.5 TAB PO HS, (Reported) Sertraline Hcl (Zoloft), 1 TAB PO DAILY, (Reported) Scheduled PRN Acetaminophen (Acetaminophen), 650 TAB PO Q4 PRN for FEVER, (Reported) Guaifenesin (Humaira-Tussin), 10 ML PO Q4 PRN for COUGH, (Reported) Loperamide Hcl (Loperamide), 2 MG PO PRN PRN for DIARRHEA, (Reported) Mag Hydrox/Al Hydrox/Simeth (Humaira-Lanta Liquid), 30 ML PO Q6 PRN for INDIGESTION , (Reported) Magnesium Hydroxide (Milk Of Magnesia), 30 MG PO DAILY24 PRN for CONSTIPATION, ( Reported) Na Phos,M-B/Na Phos,Di-Ba (Fleet Enema), 133 ML RC PRN PRN for CONSTIPATION, ( Reported) Tizanidine Hcl (Tizanidine Hcl), 0.5 TAB PO BID PRN for MUSCLE SPASM, (Reported) Objective Vitals and I/O Vital Sign - Last 24 Hours 06/11/18 06/11/18 06/11/18 06/11/18 12:15 12:15 12:24 12:29 Temp 98.5 98.5 98.5 98.5 98.5 98.5 Pulse 71 70 76 Resp 18 18 18 B/P (MAP) 150/96 (114) 144/94 (111) 140/90 (107) Pulse Ox 100 100 100 O2 Delivery Non-Rebreather Non-Rebreather Room Air O2 Flow Rate 10 10 5 06/11/18 06/11/18 06/11/18 06/11/18 12:40 12:50 12:59 13:10 Temp 98.8 97.7 98.4 98.7 98.8 97.7 98.4 98.7 Pulse 83 79 81 79 Resp 18 18 18 18 B/P (MAP) 147/97 (114) 140/88 (105) 148/90 (109) 145/96 (112) Pulse Ox 98 96 97 99 O2 Delivery Nasal Canula Nasal Canula Nasal Canula Nasal Canula O2 Flow Rate 2 2 2 2 06/11/18 06/11/18 06/11/18 06/11/18 13:46 13:48 13:49 14:00 Temp 98.7 98.7 Pulse 100 78 Resp 10 10 16 16 B/P (MAP) 146/96 (113) 140/93 (109) Pulse Ox 79 79 98 99 O2 Delivery Nasal Cannula O2 Flow Rate 2.00 FiO2 28 06/11/18 06/11/18 06/11/18 06/11/18 14:15 14:25 14:30 14:45 Pulse 87 84 87 Resp 16 12 13 B/P (MAP) 142/88 (106) 141/88 (105) 145/92 (109) Pulse Ox 99 99 99 O2 Delivery Nasal Cannula O2 Flow Rate 2.00 06/11/18 06/11/18 06/11/18 06/11/18 15:00 15:15 15:30 15:45 Pulse 82 87 98 84 Resp 12 16 16 16 B/P (MAP) 145/93 (110) 145/87 (106) 165/91 (115) 134/85 (101) Pulse Ox 100 100 100 100 06/11/18 06/11/18 06/11/18 06/11/18 16:00 16:15 16:30 16:45 Pulse 81 93 79 78 Resp 16 10 10 10 B/P (MAP) 131/79 (96) 144/97 (113) 139/87 (104) 134/92 (106) Pulse Ox 100 100 100 100 06/11/18 06/11/18 06/11/18 06/11/18 17:00 17:10 17:15 17:30 Pulse 96 102 105 96 Resp 21 16 15 17 B/P (MAP) 139/90 (106) 143/93 (110) 111/80 (90) 132/85 (101) Pulse Ox 97 97 92 93 06/11/18 06/11/18 06/11/18 06/11/18 17:45 18:00 18:15 18:30 Pulse 98 100 100 97 Resp 16 15 17 12 Pulse Ox 94 94 94 93 06/11/18 06/11/18 06/11/18 3/26/19 18:45 19:00 19:00 19:04 Temp 98.5 98.5 Pulse 97 98 91 Resp 13 14 12 B/P (MAP) 133/86 (102) Pulse Ox 95 96 97 O2 Delivery Nasal Cannula O2 Flow Rate 2.00 06/11/18 06/11/18 06/11/18 06/11/18 19:15 19:30 19:45 20:00 Pulse 90 92 88 96 Resp 13 14 11 16 B/P (MAP) 124/81 (95) 127/79 (95) 128/83 (98) 126/83 (97) Pulse Ox 93 94 94 97 06/11/18 06/11/18 06/11/18 06/11/18 20:15 20:30 20:45 21:00 Pulse 99 96 91 104 Resp 14 12 12 15 B/P (MAP) 122/84 (97) 124/83 (97) 125/82 (96) 121/84 (96) Pulse Ox 93 94 94 94 06/11/18 06/11/18 06/11/18 06/11/18 21:15 21:30 21:42 21:45 Pulse 101 101 90 105 Resp 13 16 18 16 B/P (MAP) 127/85 (99) 118/84 (95) 123/85 (98) Pulse Ox 94 95 94 94 O2 Delivery Nasal Cannula FiO2 21 06/11/18 06/11/18 06/11/18 06/11/18 22:00 22:15 22:30 22:45 Pulse 103 102 108 110 Resp 12 12 16 16 B/P (MAP) 128/81 (97) 127/86 (100) 124/83 (97) 117/82 (94) Pulse Ox 94 96 95 93 06/11/18 06/11/18 06/11/18 06/11/18 23:00 23:00 23:15 23:30 Pulse 103 108 119 Resp 22 14 12 B/P (MAP) 121/77 (92) 120/77 (91) 128/81 (97) Pulse Ox 93 94 95 O2 Delivery Room Air 06/11/18 06/12/18 06/12/18 06/12/18 23:46 00:00 00:15 00:30 Temp 98.4 98.4 Pulse 126 108 107 108 Resp 21 14 14 14 B/P (MAP) 148/89 (108) 130/87 (101) 120/79 (93) 125/82 (96) Pulse Ox 96 95 95 96 06/12/18 06/12/18 06/12/18 06/12/18 00:45 01:00 01:15 01:30 Pulse 110 109 109 109 Resp 14 13 15 15 B/P (MAP) 122/81 (95) 116/77 (90) 125/84 (98) 125/80 (95) Pulse Ox 94 95 96 95 06/12/18 06/12/18 06/12/18 06/12/18 01:45 02:00 02:15 02:27 Pulse 109 112 113 108 Resp 13 15 16 18 B/P (MAP) 119/79 (92) 123/77 (92) 130/84 (99) 146/85 (105) Pulse Ox 97 97 97 99 06/12/18 06/12/18 06/12/18 06/12/18 02:30 02:38 02:45 03:00 Pulse 118 113 112 107 Resp 21 18 17 13 B/P (MAP) 87/64 (72) 118/82 (94) 129/83 (98) 125/79 (94) Pulse Ox 96 97 98 99 06/12/18 06/12/18 06/12/18 06/12/18 03:15 03:30 03:45 04:00 Pulse 109 106 113 Resp 15 13 17 B/P (MAP) 122/81 (95) 127/80 (96) 130/75 (93) Pulse Ox 99 100 93 O2 Delivery Room Air 06/12/18 06/12/18 06/12/18 06/12/18 04:00 04:15 04:30 04:45 Temp 98.7 98.7 Pulse 108 111 109 102 Resp 16 16 16 13 B/P (MAP) 127/79 (95) 135/78 (97) 127/78 (94) 127/72 (90) Pulse Ox 95 95 94 95 06/12/18 06/12/18 06/12/18 06/12/18 05:00 05:15 05:30 05:45 Pulse 100 101 120 112 Resp 12 14 22 25 B/P (MAP) 136/78 (97) 130/78 (95) 118/74 (89) 127/85 (99) Pulse Ox 96 96 97 94 06/12/18 06/12/18 06/12/18 06/12/18 06:00 06:30 06:45 07:00 Pulse 107 105 102 107 Resp 16 14 15 14 B/P (MAP) 133/82 (99) 113/78 (90) 126/72 (90) 126/74 (91) Pulse Ox 95 96 93 95 06/12/18 06/12/18 06/12/18 06/12/18 07:15 07:30 07:45 08:00 Pulse 106 117 106 Resp 16 15 13 B/P (MAP) 126/73 (90) 112/81 (91) 115/69 (84) Pulse Ox 93 92 93 O2 Delivery Room Air 06/12/18 06/12/18 06/12/18 08:01 08:15 08:30 Temp 97.7 97.7 Pulse 114 109 108 Resp 18 14 14 B/P (MAP) 129/77 (94) 111/65 (80) 114/64 (81) Pulse Ox 96 94 92 Intake and Output 06/11/18 06/11/18 06/12/18 15:00 23:00 07:00 Intake Total 85260 ml 823 ml 1228 ml Output Total 250 ml 880 ml 1035 ml Balance 07952 ml -57 ml 193 ml General: Alert, Oriented X3, Cooperative, No acute distress HEENT: Atraumatic, PERRLA, EOMI, Mucous membr. moist/pink Lungs: Clear to auscultation, Normal air movement Heart: Regular rate, Normal S1, Normal S2, No murmurs Abdomen: Soft, Other (mild tenderness to palpation umbilical area, dressing in place over ostomy, surgical incision, MAGNOLIA in place) Neuro: Normal speech, Cranial nerves 3-12 NL Psych/Mental Status: Mental status NL, Mood NL All Results(Lab/Rad) Laboratory Tests Test 06/11/18 17:00 06/11/18 17:30 06/11/18 17:33 06/12/18 05:00 White Blood Count 16.2 10^3/uL 12.9 10^3/uL Red Blood Count 4.30 10^6/uL 3.66 10^6/uL Hemoglobin 13.1 g/dL 11.2 g/dL Hematocrit 38.0 % 32.7 % Mean Corpuscular Volume 88.4 fL 89.3 fL Mean Corpuscular Hemoglobin 30.5 pg 30.6 pg Mean Corpuscular Hemoglobin Concent 34.5 g/dL 34.3 g/dL Red Cell Distribution Width 13.2 % 13.3 % Platelet Count 115 10^3/uL 146 10^3/uL Mean Platelet Volume 9.6 fL 9.6 fL Neutrophils (%) (Auto) 87.3 % 77.7 % Lymphocytes (%) (Auto) 5.0 % 12.3 % Monocytes (%) (Auto) 7.2 % 9.6 % Neutrophils # (Auto) 14.1 10^3/uL 10.0 10^3/uL Lymphocytes # (Auto) 0.8 10^3/uL 1.6 10^3/uL Monocytes # (Auto) 1.2 10^3/uL 1.2 10^3/uL Absolute Immature Granulocyte (auto 0.07 10^3 u/L 0.04 10^3 u/L Eosinophils % 0.0 % 0.0 % Basophils % 0.1 % 0.1 % Basophils # 0.0 10^3/uL 0.0 10^3/uL Eosinophil Count 0.0 10^3/uL 0.0 10^3/uL Percent Immature Gran (Cell Imm) 0.40 % 0.30 % Sodium Level 134 mmol/L 136 mmol/L Potassium Level 4.6 mmol/L 4.8 mmol/L Chloride Level 102.0 mmol/L 102.0 mmol/L Carbon Dioxide Level 18.9 mmol/L 23.6 mmol/L Anion Gap 17.7 15.2 Blood Urea Nitrogen 9 mg/dL 10 mg/dL Creatinine 0.81 mg/dL 0.96 mg/dL Estimated GFR () 120.2 98.8 BUN/Creatinine Ratio 11.0 10.0 Glucose Level 315 mg/dL 280 mg/dL Calcium Level 8.1 mg/dL 8.3 mg/dL Total Bilirubin 0.8 mg/dL 0.8 mg/dL Aspartate Amino Transf (AST/SGOT) 26 U/L 19 U/L Alanine Aminotransferase (ALT/SGPT) 33 U/L 30 U/L Alkaline Phosphatase 114 U/L 97 U/L Total Protein 6.3 g/dL 6.2 g/dL Albumin 3.0 g/dL 2.8 g/dL Globulin 3.3 3.4 Differential Total Cells Counted 100 #CELLS Segmented Neutrophils 92 % Lymphocytes 3 % Monocytes 5 % Differential Comment NORMAL Platelet Estimate ADEQUATE Platelet Morphology NORMAL Blood Morphology Comment NORMAL MORPHOLOGY Current Medications Medications (Trade) Dose Ordered Sig/Escobar Route PRN Reason Start Time Stop Time Status Last Admin Dose Admin Enoxaparin Sodium (Lovenox) 40 mg OT ONCE SQ 06/11/18 06:45 06/11/18 16:12 DC 06/11/18 06:53 Cefoxitin Sodium (Mefoxin) 1 gm STK-MED ONCE .ROUTE 06/11/18 05:55 06/11/18 05:56 DC Sodium Chloride 100 ml @ ud STK-MED ONCE IV 06/11/18 05:55 06/11/18 05:57 DC Dexamethasone Sodium Phosphate (Decadron) 4 mg STK-MED ONCE .ROUTE 06/11/18 06:46 06/11/18 06:47 DC Neostigmine Methylsulfate (Neostigmine) 10 mg STK-MED ONCE .ROUTE 06/11/18 06:46 06/11/18 06:48 DC Ondansetron HCl (Zofran) 4 mg STK-MED ONCE .ROUTE 06/11/18 06:46 06/11/18 06:48 DC Ketorolac Tromethamine (Toradol) 30 mg STK-MED ONCE .ROUTE 06/11/18 06:46 06/11/18 06:48 DC Rocuronium [place] (Zemuron) 100 mg STK-MED ONCE IV 06/11/18 06:46 06/11/18 06:48 DC Hydromorphone HCl (Dilaudid) 2 mg STK-MED ONCE .ROUTE 06/11/18 06:47 06/11/18 06:48 DC Fentanyl Citrate (Sublimaze) 100 mcg STK-MED ONCE .ROUTE 06/11/18 06:47 06/11/18 06:49 DC Propofol (Diprivan) 200 mg STK-MED ONCE IV 06/11/18 06:47 06/11/18 06:49 DC Midazolam HCl (Versed) 1 mg STK-MED ONCE .ROUTE 06/11/18 06:48 06/11/18 06:49 DC Lidocaine HCl (Lidocaine 2% Vial) 500 mg STK-MED ONCE .ROUTE 06/11/18 06:48 06/11/18 06:50 DC Sodium Chloride (Sodium Chloride) 1,000 ml STK-MED ONCE IR 06/11/18 07:00 06/11/18 07:02 DC Sterile Water (Water) 1,000 ml STK-MED ONCE .ROUTE 06/11/18 07:01 06/11/18 07:02 DC Bupivacaine HCl (Sensorcaine-Mpf 0.25% Vial) 2.5 mg STK-MED ONCE .ROUTE 06/11/18 07:01 06/11/18 07:02 DC Labetalol HCl (Trandate) 20 mg STK-MED ONCE IV 06/11/18 07:22 06/11/18 07:23 DC Sodium Chloride 1,000 ml @ ud STK-MED ONCE .ROUTE 06/11/18 08:41 06/11/18 08:42 DC Sterile Water (Water) 1,000 ml STK-MED ONCE .ROUTE 06/11/18 09:30 06/11/18 09:32 DC Sterile Water (Water) 1,000 ml STK-MED ONCE .ROUTE 06/11/18 09:46 06/11/18 09:47 DC Cefoxitin Sodium (Mefoxin) 1 gm STK-MED ONCE .ROUTE 06/11/18 10:34 06/11/18 10:35 DC Sodium Chloride 100 ml @ ud STK-MED ONCE IV 06/11/18 10:34 06/11/18 10:35 DC Sterile Water (Water) 1,000 ml STK-MED ONCE .ROUTE 06/11/18 11:04 06/11/18 11:05 DC Morphine Sulfate (Morphine Sulfate) 1 mg Q4H PRN IV PAIN 4 - 6 06/11/18 12:00 07/11/18 11:59 Morphine Sulfate (Morphine Sulfate) 3 mg Q3H PRN IV PAIN 7 - 10 06/11/18 12:00 07/11/18 11:59 06/12/18 07:48 Acetaminophen/ Hydrocodone Bitart ([place] 5mg) 1 ea Q4H PRN PO PAIN 4 - 6 06/11/18 12:00 07/11/18 11:59 06/11/18 20:50 Acetaminophen (Tylenol) 650 mg Q6 PRN PO FEVER/MILD PAIN 06/11/18 12:00 07/11/18 11:59 Pantoprazole Sodium (Protonix Iv) 40 mg DAILY IV 06/12/18 09:00 07/12/18 08:59 Simethicone (Genasyme) 80 mg Q4 PRN PO GAS/BLOATING 06/11/18 12:00 07/11/18 11:59 06/12/18 05:10 Enoxaparin Sodium (Lovenox) 40 mg DAILY@0830 SQ 06/12/18 08:30 07/12/18 08:29 Potassium Chloride/Dextrose/ Sod Cl 1,000 ml @ 125 mls/hr Q8H IV 06/11/18 11:58 07/11/18 11:57 06/11/18 20:49 Hydromorphone HCl (Dilaudid) 1 mg Q4H PRN IV PAIN 7 - 10 06/11/18 12:00 07/11/18 11:59 Cefoxitin Sodium 1 gm/Sodium Chloride 100 ml @ 100 mls/hr Q6 IV 06/11/18 12:00 06/12/18 07:17 DC 06/12/18 05:27 Sodium Chloride 1,000 ml @ [facility] ONCE .ROUTE 06/11/18 12:08 06/11/18 12:09 DC Hydromorphone HCl (Dilaudid) 0.2 mg Q5MIN PRN IV PAIN 1 - 3 06/11/18 12:30 06/11/18 16:06 DC 06/11/18 12:54 Ondansetron HCl (Zofran) 4 mg PRN PRN IV nv 06/11/18 12:30 06/11/18 16:13 DC Promethazine HCl (Phenergan) 6.25 mg PRN PRN IV NAUSEA / VOMITING 06/11/18 12:30 06/11/18 16:13 DC Diphenhydramine HCl (Benadryl) 25 mg Q5MIN PRN IV NAUSEA / VOMITING 06/11/18 12:30 06/11/18 16:06 DC Acetaminophen (Tylenol) 325 mg Q4 PRN PO FEVER 06/11/18 17:00 07/11/18 16:59 Levetiracetam (Keppra) 500 mg BID PO 06/11/18 21:00 07/11/18 20:59 06/11/18 20:51 Sertraline HCl (Zoloft) 50 mg DAILY PO 06/12/18 09:00 07/12/18 08:59 Risperidone (Risperdal) 0.5 mg DAILY24 PO 06/12/18 09:00 07/12/18 08:59 Risperidone (Risperdal) 0.75 mg HS PO 06/11/18 21:00 07/11/18 20:59 06/11/18 20:51 Insulin Human Regular (Humulin R) Give 30 minutes before meal ACHS SQ 06/11/18 17:30 07/11/18 17:29 06/11/18 21:55 Dextrose (Dextrose 50%-Water Syringe) 25 ml STAT PRN IV HYPOGLYCEMIA 06/11/18 17:00 07/11/18 16:59 Lorazepam (Ativan) 1 mg Q4HR PRN IM AGITATION 06/11/18 17:00 07/11/18 16:59 Metoclopramide HCl (Reglan) 10 mg Q6 PRN IV NAUSEA / VOMITING 06/11/18 19:00 07/11/18 18:59 06/12/18 05:10 Course Sepsis Screening Results: Posi: NEGATIVE Sepsis Qualifier/Stage: NO DEFINITE RISK Vitals & review Data Vital Sign - Last 24 Hours 06/11/18 06/11/18 06/11/18 06/11/18 12:15 12:15 12:24 12:29 Temp 98.5 98.5 98.5 98.5 98.5 98.5 Pulse 71 70 76 Resp 18 18 18 B/P (MAP) 150/96 (114) 144/94 (111) 140/90 (107) Pulse Ox 100 100 100 O2 Delivery Non-Rebreather Non-Rebreather Room Air O2 Flow Rate 10 10 5 06/11/18 06/11/18 06/11/18 06/11/18 12:40 12:50 12:59 13:10 Temp 98.8 97.7 98.4 98.7 98.8 97.7 98.4 98.7 Pulse 83 79 81 79 Resp 18 18 18 18 B/P (MAP) 147/97 (114) 140/88 (105) 148/90 (109) 145/96 (112) Pulse Ox 98 96 97 99 O2 Delivery Nasal Canula Nasal Canula Nasal Canula Nasal Canula O2 Flow Rate 2 2 2 2 06/11/18 06/11/18 06/11/18 06/11/18 13:46 13:48 13:49 14:00 Temp 98.7 98.7 Pulse 100 78 Resp 10 10 16 16 B/P (MAP) 146/96 (113) 140/93 (109) Pulse Ox 79 79 98 99 O2 Delivery Nasal Cannula O2 Flow Rate 2.00 FiO2 28 06/11/18 06/11/18 06/11/18 06/11/18 14:15 14:25 14:30 14:45 Pulse 87 84 87 Resp 16 12 13 B/P (MAP) 142/88 (106) 141/88 (105) 145/92 (109) Pulse Ox 99 99 99 O2 Delivery Nasal Cannula O2 Flow Rate 2.00 06/11/18 06/11/18 06/11/18 06/11/18 15:00 15:15 15:30 15:45 Pulse 82 87 98 84 Resp 12 16 16 16 B/P (MAP) 145/93 (110) 145/87 (106) 165/91 (115) 134/85 (101) Pulse Ox 100 100 100 100 06/11/18 06/11/18 06/11/18 06/11/18 16:00 16:15 16:30 16:45 Pulse 81 93 79 78 Resp 16 10 10 10 B/P (MAP) 131/79 (96) 144/97 (113) 139/87 (104) 134/92 (106) Pulse Ox 100 100 100 100 06/11/18 06/11/18 06/11/18 06/11/18 17:00 17:10 17:15 17:30 Pulse 96 102 105 96 Resp 21 16 15 17 B/P (MAP) 139/90 (106) 143/93 (110) 111/80 (90) 132/85 (101) Pulse Ox 97 97 92 93 06/11/18 06/11/18 06/11/18 06/11/18 17:45 18:00 18:15 18:30 Pulse 98 100 100 97 Resp 16 15 17 12 Pulse Ox 94 94 94 93 06/11/18 06/11/18 06/11/18 06/11/18 18:45 19:00 19:00 19:04 Temp 98.5 98.5 Pulse 97 98 91 Resp 13 14 12 B/P (MAP) 133/86 (102) Pulse Ox 95 96 97 O2 Delivery Nasal Cannula O2 Flow Rate 2.00 06/11/18 06/11/18 06/11/18 06/11/18 19:15 19:30 19:45 20:00 Pulse 90 92 88 96 Resp 13 14 11 16 B/P (MAP) 124/81 (95) 127/79 (95) 128/83 (98) 126/83 (97) Pulse Ox 93 94 94 97 06/11/18 06/11/18 06/11/18 06/11/18 20:15 20:30 20:45 21:00 Pulse 99 96 91 104 Resp 14 12 12 15 B/P (MAP) 122/84 (97) 124/83 (97) 125/82 (96) 121/84 (96) Pulse Ox 93 94 94 94 06/11/18 06/11/18 06/11/18 06/11/18 21:15 21:30 21:42 21:45 Pulse 101 101 90 105 Resp 13 16 18 16 B/P (MAP) 127/85 (99) 118/84 (95) 123/85 (98) Pulse Ox 94 95 94 94 O2 Delivery Nasal Cannula FiO2 21 06/11/18 06/11/18 06/11/18 06/11/18 22:00 22:15 22:30 22:45 Pulse 103 102 108 110 Resp 12 12 16 16 B/P (MAP) 128/81 (97) 127/86 (100) 124/83 (97) 117/82 (94) Pulse Ox 94 96 95 93 06/11/18 06/11/18 06/11/18 06/11/18 23:00 23:00 23:15 23:30 Pulse 103 108 119 Resp 22 14 12 B/P (MAP) 121/77 (92) 120/77 (91) 128/81 (97) Pulse Ox 93 94 95 O2 Delivery Room Air 06/11/18 06/12/18 06/12/18 06/12/18 23:46 00:00 00:15 00:30 Temp 98.4 98.4 Pulse 126 108 107 108 Resp 21 14 14 14 B/P (MAP) 148/89 (108) 130/87 (101) 120/79 (93) 125/82 (96) Pulse Ox 96 95 95 96 306/12/18 06/12/18 06/12/18 00:45 01:00 01:15 01:30 Pulse 110 109 109 109 Resp 14 13 15 15 B/P (MAP) 122/81 (95) 116/77 (90) 125/84 (98) 125/80 (95) Pulse Ox 94 95 96 95 06/12/18 06/12/18 06/12/18 06/12/18 01:45 02:00 02:15 02:27 Pulse 109 112 113 108 Resp 13 15 16 18 B/P (MAP) 119/79 (92) 123/77 (92) 130/84 (99) 146/85 (105) Pulse Ox 97 97 97 99 06/12/18 06/12/18 06/12/18 06/12/18 02:30 02:38 02:45 03:00 Pulse 118 113 112 107 Resp 21 18 17 13 B/P (MAP) 87/64 (72) 118/82 (94) 129/83 (98) 125/79 (94) Pulse Ox 96 97 98 99 06/12/18 06/12/18 06/12/18 06/12/18 03:15 03:30 03:45 04:00 Pulse 109 106 113 Resp 15 13 17 B/P (MAP) 122/81 (95) 127/80 (96) 130/75 (93) Pulse Ox 99 100 93 O2 Delivery Room Air 06/12/18 06/12/18 06/12/18 06/12/18 04:00 04:15 04:30 04:45 Temp 98.7 98.7 Pulse 108 111 109 102 Resp 16 16 16 13 B/P (MAP) 127/79 (95) 135/78 (97) 127/78 (94) 127/72 (90) Pulse Ox 95 95 94 95 06/12/18 06/12/18 06/12/18 06/12/18 05:00 05:15 05:30 05:45 Pulse 100 101 120 112 Resp 12 14 22 25 B/P (MAP) 136/78 (97) 130/78 (95) 118/74 (89) 127/85 (99) Pulse Ox 96 96 97 94 06/12/18 06/12/18 06/12/18 06/12/18 06:00 06:30 06:45 07:00 Pulse 107 105 102 107 Resp 16 14 15 14 B/P (MAP) 133/82 (99) 113/78 (90) 126/72 (90) 126/74 (91) Pulse Ox 95 96 93 95 06/12/18 06/12/18 06/12/18 06/12/18 07:15 07:30 07:45 08:00 Pulse 106 117 106 Resp 16 15 13 B/P (MAP) 126/73 (90) 112/81 (91) 115/69 (84) Pulse Ox 93 92 93 O2 Delivery Room Air 06/12/18 06/12/18 06/12/18 08:01 08:15 08:30 Temp 97.7 97.7 Pulse 114 109 108 Resp 18 14 14 B/P (MAP) 129/77 (94) 111/65 (80) 114/64 (81) Pulse Ox 96 94 92 Intake and Output 06/11/18 06/11/18 06/12/18 15:00 23:00 07:00 Intake Total 08658 ml 823 ml 1228 ml Output Total 250 ml 880 ml 1035 ml Balance 24411 ml -57 ml 193 ml Laboratory Tests Test 06/11/18 17:00 06/11/18 17:30 06/11/18 17:33 06/12/18 05:00 White Blood Count 16.2 10^3/uL 12.9 10^3/uL Red Blood Count 4.30 10^6/uL 3.66 10^6/uL Hemoglobin 13.1 g/dL 11.2 g/dL Hematocrit 38.0 % 32.7 % Mean Corpuscular Volume 88.4 fL 89.3 fL Mean Corpuscular Hemoglobin 30.5 pg 30.6 pg Mean Corpuscular Hemoglobin Concent 34.5 g/dL 34.3 g/dL Red Cell Distribution Width 13.2 % 13.3 % Platelet Count 115 10^3/uL 146 10^3/uL Mean Platelet Volume 9.6 fL 9.6 fL Neutrophils (%) (Auto) 87.3 % 77.7 % Lymphocytes (%) (Auto) 5.0 % 12.3 % Monocytes (%) (Auto) 7.2 % 9.6 % Neutrophils # (Auto) 14.1 10^3/uL 10.0 10^3/uL Lymphocytes # (Auto) 0.8 10^3/uL 1.6 10^3/uL Monocytes # (Auto) 1.2 10^3/uL 1.2 10^3/uL Absolute Immature Granulocyte (auto 0.07 10^3 u/L 0.04 10^3 u/L Eosinophils % 0.0 % 0.0 % Basophils % 0.1 % 0.1 % Basophils # 0.0 10^3/uL 0.0 10^3/uL Eosinophil Count 0.0 10^3/uL 0.0 10^3/uL Percent Immature Gran (Cell Imm) 0.40 % 0.30 % Sodium Level 134 mmol/L 136 mmol/L Potassium Level 4.6 mmol/L 4.8 mmol/L Chloride Level 102.0 mmol/L 102.0 mmol/L Carbon Dioxide Level 18.9 mmol/L 23.6 mmol/L Anion Gap 17.7 15.2 Blood Urea Nitrogen 9 mg/dL 10 mg/dL Creatinine 0.81 mg/dL 0.96 mg/dL Estimated GFR () 120.2 98.8 BUN/Creatinine Ratio 11.0 10.0 Glucose Level 315 mg/dL 280 mg/dL Calcium Level 8.1 mg/dL 8.3 mg/dL Total Bilirubin 0.8 mg/dL 0.8 mg/dL Aspartate Amino Transf (AST/SGOT) 26 U/L 19 U/L Alanine Aminotransferase (ALT/SGPT) 33 U/L 30 U/L Alkaline Phosphatase 114 U/L 97 U/L Total Protein 6.3 g/dL 6.2 g/dL Albumin 3.0 g/dL 2.8 g/dL Globulin 3.3 3.4 Differential Total Cells Counted 100 #CELLS Segmented Neutrophils 92 % Lymphocytes 3 % Monocytes 5 % Differential Comment NORMAL Platelet Estimate ADEQUATE Platelet Morphology NORMAL Blood Morphology Comment NORMAL MORPHOLOGY Current Medications Medications (Trade) Dose Ordered Sig/Escobar PRN Reason Start Time Stop Time Status Last Admin Acetaminophen (Tylenol) 325 mg Q4 PRN FEVER 06/11/18 17:00 07/11/18 16:59 Acetaminophen (Tylenol) 650 mg Q6 PRN FEVER/MILD PAIN 06/11/18 12:00 07/11/18 11:59 Acetaminophen/ Hydrocodone Bitart ([place] 5mg) 1 ea Q4H PRN PAIN 4 - 6 06/11/18 12:00 07/11/18 11:59 06/11/18 20:50 Dextrose (Dextrose 50%-Water Syringe) 25 ml STAT PRN HYPOGLYCEMIA 06/11/18 17:00 07/11/18 16:59 Enoxaparin Sodium (Lovenox) 40 mg DAILY@0830 06/12/18 08:30 07/12/18 08:29 Hydromorphone HCl (Dilaudid) 1 mg Q4H PRN PAIN 7 - 10 06/11/18 12:00 07/11/18 11:59 Insulin Human Regular (Humulin R) Give 30 minutes before meal ACHS 06/11/18 17:30 07/11/18 17:29 06/11/18 21:55 Levetiracetam (Keppra) 500 mg BID 06/11/18 21:00 07/11/18 20:59 06/11/18 20:51 Lorazepam (Ativan) 1 mg Q4HR PRN AGITATION 06/11/18 17:00 07/11/18 16:59 Metoclopramide HCl (Reglan) 10 mg Q6 PRN NAUSEA / VOMITING 06/11/18 19:00 07/11/18 18:59 06/12/18 05:10 Morphine Sulfate (Morphine Sulfate) 1 mg Q4H PRN PAIN 4 - 6 06/11/18 12:00 07/11/18 11:59 Morphine Sulfate (Morphine Sulfate) 3 mg Q3H PRN PAIN 7 - 10 06/11/18 12:00 07/11/18 11:59 06/12/18 07:48 Pantoprazole Sodium (Protonix Iv) 40 mg DAILY 06/12/18 09:00 07/12/18 08:59 Potassium Chloride/Dextrose/ Sod Cl 1,000 ml @ 125 mls/hr Q8H 06/11/18 11:58 07/11/18 11:57 06/11/18 20:49 Risperidone (Risperdal) 0.5 mg DAILY24 06/12/18 09:00 07/12/18 08:59 Risperidone (Risperdal) 0.75 mg HS 06/11/18 21:00 07/11/18 20:59 06/11/18 20:51 Sertraline HCl (Zoloft) 50 mg DAILY 06/12/18 09:00 07/12/18 08:59 Simethicone (Genasyme) 80 mg Q4 PRN GAS/BLOATING 06/11/18 12:00 07/11/18 11:59 06/12/18 05:10 Sepsis Infection Criteria Pres: None LEVEL 1 SEPSIS INFECTION CRITE: Abdominal Pain, Recent Invasive Procedure LEVEL 2-SIRS (LIST ALL THAT AP: None/Not assessed Cardiovascular Evidence: Not Assessed or None Hematologic Evidence: None/Not assessed Hepatic Evidence: None/Not assessed Metabolic Evidence: None/Not assessed Neurological Evidence: None/Not assessed Respiratory Evidence: None/Not assessed Renal Evidence: None/Not assessed O2 Sat by Pulse Oximetry: 98 Oxygen Flow Rate: 2.00 Assessment/Plan Assessment/Plan Assessment/Plan 1. Colostomy Reversal - POD#4. Cont pain control, - Continue IV Abx. - ADAT per Dr. Aragon - Increase pulm hygiene, activity. - Greatly appreciate Dr. Aragon. 2. DM: Cont holding home basal insulin. MDSSI to cover for now. - Will likely need to get back on long acting insulin when eating more. 3. Seizure Disorder: cont keppra, - Ativan PRN 4. Generalized Anxiety Disorder: I think this is contributing to him not feeling well currently. - restart SSRI, Ativan PRN. Holding Xanax. 5. GERD: cont PPI 6. PPx: Lovenox, PPI Plan PRIYANKA WAY MD Jun 15, 2018 16:46
[2018-06-15] MEDS: LANTUS SQ SCH (17:00)
[2018-06-15] MEDS: COLACE PO SCH (21:16)
[2018-06-15] MEDS: D5W-1/2 NS/KCL 20MEQ 1,000 ML IV SCH (23:28)
[2018-06-16 00:26] VITALS: BP 156/94
[2018-06-16] MEDS: REGLAN IV PRN (04:17)
[2018-06-16] MEDS: GENASYME PO PRN (04:17)
[2018-06-16 05:48] VITALS: BP 160/94
[2018-06-16] MEDS: HUMULIN R SQ SCH ×4 (07:46→21:00)
[2018-06-16] MEDS: LANTUS SQ SCH (07:52)
[2018-06-16 07:58] VITALS: BP 143/77
[2018-06-16] MEDS: RISPERDAL PO SCH ×2 (08:08→21:11)
[2018-06-16] MEDS: FIBERCON PO SCH (08:08)
[2018-06-16] MEDS: ZOLOFT PO SCH (08:08)
[2018-06-16] MEDS: KEPPRA PO SCH ×2 (08:08→21:11)
[2018-06-16] MEDS: COLACE PO SCH ×2 (08:08→21:11)
[2018-06-16] MEDS: COZAAR PO SCH (08:08)
[2018-06-16] MEDS: ANTIVERT PO SCH ×3 (08:08→21:12)
[2018-06-16] MEDS: PROTONIX IV IV SCH (08:08)
[2018-06-16] MEDS: NORCO 5MG PO PRN ×2 (08:09→23:30)
[2018-06-16 10:30] LABS: BASOPHIL # 0.1 10^3/uL (0.0-0.1); BASOPHIL % 0.6 % (0.0-0.2); EOSINOPHIL # 0.4 10^3/uL (0.0-0.2); EOSINOPHIL % 4.2 % (0.0-5.0); HEMOGLOBIN 11.9 g/dL (13.9-16.3); LYMPHOCYTES # 1.9 10^3/uL (1.0-4.8); MEAN CELL HGB 30.4 pg (26-34); MEAN CELL HGB CONCENTRATION 33.8 g/dL (33-37); MEAN PLATELET VOLUME 9.2 fL (7.8-11.0); MONOCYTES # 0.9 10^3/uL (0.3-0.8); MONOCYTES % 9.5 % (5.0-12.0); NEUTROPHIL # 5.8 10^3/uL (1.8-7.7); NEUTROPHILS % 62.3 % (41.0-85.0); PLATELET COUNT 200 10^3/uL (150-400); RED CELL DISTRIBUTION WIDTH 13.4 % (11.5-14.5); WHITE BLOOD CELL 9.3 10^3/uL (4.5-11.0)
[2018-06-16 10:42] LABS: CALCIUM 9.3 mg/dL (8.4-10.5); CARBON DIOXIDE 19.7 mmol/L (20.0-32)
[2018-06-16 12:12] VITALS: BP 132/85
--- NOTE | 2018-06-16 16:06 | NUR ---
STATUS PT AMBULATED IN HALLWAY. ENCOURAGED PT TO GO BACK TO BED. PT REFUSED. EDUCATED PT ON RISKS OF PNE AND WAYS TO PREVENT. PT STATES "I DONT CARE ANY MORE. I JUST WANT TO . I WANT TO GO TO [facility] TO BE WITH MY MOTHER. YALL ARE MEAN FOR MAKING ME SIT UP IN THE CHAIR" PT REFUSES FURTHER EDUCATION. CALL LIGHT WITHIN REACH.
[2018-06-16 16:42] VITALS: BP 140/86
--- NOTE | 2018-06-16 18:25 | PRM.PN ---
Subjective Subjective Date: Jun 16, 2018 Time: 18:22 Subjective Not wanting to do much. Doesn't want out of bed. Not eating much. Decreased appetitie. Wants to go back to SNF soon. Patient History: Diabetes mellitus G8 SISTER FH: brain tumor G8 BROTHER, FH: cancer 32 MOTHER, No known health problems 33 FATHER, Pacemaker 32 MOTHER, Relative being killed G8 SISTER, VTE VTE Risk Total Score: 5 VTE Risk Score VTE Risk: Score 0-1 = Low Risk (Aggressive mobilization; early ambulation; no VTE prophylaxis required) Score 2: Moderate Risk (Intermittent/Pneumatic Compression Device OR Lovenox/Heparin/Coumadin) Score 3-4: High Risk (Intermittent/Pneumatic Compression Device AND Lovenox/Heparin/Coumadin) Score > or =5: Highest Risk (Intermittent/Pneumatic Compression Device AND Lovenox/Heparin/Coumadin) Review of Systems Constitutional: No: Fever, Chills Eyes: No: Conjunctivae inflammation, Eyelid inflammation ENT: No: Nose discharge, Nose congestion Respiratory: No: Cough, Shortness of breath, SOB with excertion, Wheezing Cardiovascular: No: Chest Pain, Palpitations, Edema Gastrointestinal: Nausea, Abdominal Pain; No: Vomiting Genitourinary: No Hematuria, No Retention Musculoskeletal: neck pain, back pain Skin: Rash; No: Lesions, Jaundice, Bruising Neurological: No: Weakness, Numbness, Incoordination, Change in speech, Confusion, Seizures Allergies: Coded Allergies: No Known Allergies (Unverified , 06/07/18) Scheduled Alprazolam (Xanax), 1 TAB PO TID, (Reported) Clonidine Hcl (Clonidine Hcl), 1 TAB PO HS, (Reported) Cranberry (Cranberry), 450 MG PO BID, (Reported) Cyclobenzaprine Hcl (Flexeril), 1 TAB PO BID, (Reported) Docusate Sodium (Colace), 1 CAP PO BID, (Reported) Erythromycin Base (Erythromycin), 250 MG PO TID, (Reported) Furosemide (Lasix), 1 TAB PO DAILY, (Reported) Gabapentin (Gabapentin), 1 CAP PO HS, (Reported) Insulin Degludec (Tresiba), 20 UNITS SUBCUT DAILY24, (Reported) Insulin Regular, Human (Humulin R), 0 IJ QID, (Reported) Levetiracetam (Keppra), 1 TAB PO BID, (Reported) Meloxicam (Meloxicam), 1 TAB PO DAILY, (Reported) Omeprazole (Omeprazole), 1 TAB PO DAILY, (Reported) Psyllium Husk/Aspartame (Metamucil Sugar-Free Powder), 283 GM PO BID, (Reported) Risperidone (Risperdal), 1 TAB PO DAILY24, (Reported) Risperidone (Risperdal), 1.5 TAB PO HS, (Reported) Sertraline Hcl (Zoloft), 1 TAB PO DAILY, (Reported) Scheduled PRN Acetaminophen (Acetaminophen), 650 TAB PO Q4 PRN for FEVER, (Reported) Guaifenesin (Humaira-Tussin), 10 ML PO Q4 PRN for COUGH, (Reported) Loperamide Hcl (Loperamide), 2 MG PO PRN PRN for DIARRHEA, (Reported) Mag Hydrox/Al Hydrox/Simeth (Humaira-Lanta Liquid), 30 ML PO Q6 PRN for INDIGESTION , (Reported) Magnesium Hydroxide (Milk Of Magnesia), 30 MG PO DAILY24 PRN for CONSTIPATION, ( Reported) Na Phos,M-B/Na Phos,Di-Ba (Fleet Enema), 133 ML RC PRN PRN for CONSTIPATION, ( Reported) Tizanidine Hcl (Tizanidine Hcl), 0.5 TAB PO BID PRN for MUSCLE SPASM, (Reported) Objective Vitals and I/O Vital Sign - Last 24 Hours 06/11/18 06/11/18 06/11/18 06/11/18 12:15 12:15 12:24 12:29 Temp 98.5 98.5 98.5 98.5 98.5 98.5 Pulse 71 70 76 Resp 18 18 18 B/P (MAP) 150/96 (114) 144/94 (111) 140/90 (107) Pulse Ox 100 100 100 O2 Delivery Non-Rebreather Non-Rebreather Room Air O2 Flow Rate 10 10 5 06/11/18 06/11/18 06/11/18 06/11/18 12:40 12:50 12:59 13:10 Temp 98.8 97.7 98.4 98.7 98.8 97.7 98.4 98.7 Pulse 83 79 81 79 Resp 18 18 18 18 B/P (MAP) 147/97 (114) 140/88 (105) 148/90 (109) 145/96 (112) Pulse Ox 98 96 97 99 O2 Delivery Nasal Canula Nasal Canula Nasal Canula Nasal Canula O2 Flow Rate 2 2 2 2 06/11/18 06/11/18 06/11/18 06/11/18 13:46 13:48 13:49 14:00 Temp 98.7 98.7 Pulse 100 78 Resp 10 10 16 16 B/P (MAP) 146/96 (113) 140/93 (109) Pulse Ox 79 79 98 99 O2 Delivery Nasal Cannula O2 Flow Rate 2.00 FiO2 28 06/11/18 06/11/18 06/11/18 06/11/18 14:15 14:25 14:30 14:45 Pulse 87 84 87 Resp 16 12 13 B/P (MAP) 142/88 (106) 141/88 (105) 145/92 (109) Pulse Ox 99 99 99 O2 Delivery Nasal Cannula O2 Flow Rate 2.00 06/11/18 06/11/18 06/11/18 06/11/18 15:00 15:15 15:30 15:45 Pulse 82 87 98 84 Resp 12 16 16 16 B/P (MAP) 145/93 (110) 145/87 (106) 165/91 (115) 134/85 (101) Pulse Ox 100 100 100 100 06/11/18 06/11/18 06/11/18 06/11/18 16:00 16:15 16:30 16:45 Pulse 81 93 79 78 Resp 16 10 10 10 B/P (MAP) 131/79 (96) 144/97 (113) 139/87 (104) 134/92 (106) Pulse Ox 100 100 100 100 06/11/18 06/11/18 06/11/18 06/11/18 17:00 17:10 17:15 17:30 Pulse 96 102 105 96 Resp 21 16 15 17 B/P (MAP) 139/90 (106) 143/93 (110) 111/80 (90) 132/85 (101) Pulse Ox 97 97 92 93 06/11/18 06/11/18 06/11/18 06/11/18 17:45 18:00 18:15 18:30 Pulse 98 100 100 97 Resp 16 15 17 12 Pulse Ox 94 94 94 93 06/11/18 06/11/18 06/11/18 06/11/18 18:45 19:00 19:00 19:04 Temp 98.5 98.5 Pulse 97 98 91 Resp 13 14 12 B/P (MAP) 133/86 (102) Pulse Ox 95 96 97 O2 Delivery Nasal Cannula O2 Flow Rate 2.00 06/11/18 06/11/18 06/11/18 06/11/18 19:15 19:30 19:45 20:00 Pulse 90 92 88 96 Resp 13 14 11 16 B/P (MAP) 124/81 (95) 127/79 (95) 128/83 (98) 126/83 (97) Pulse Ox 93 94 94 97 06/11/18 06/11/18 06/11/18 06/11/18 20:15 20:30 20:45 21:00 Pulse 99 96 91 104 Resp 14 12 12 15 B/P (MAP) 122/84 (97) 124/83 (97) 125/82 (96) 121/84 (96) Pulse Ox 93 94 94 94 06/11/18 06/11/18 06/11/18 06/11/18 21:15 21:30 21:42 21:45 Pulse 101 101 90 105 Resp 13 16 18 16 B/P (MAP) 127/85 (99) 118/84 (95) 123/85 (98) Pulse Ox 94 95 94 94 O2 Delivery Nasal Cannula FiO2 21 06/11/18 06/11/18 06/11/18 06/11/18 22:00 22:15 22:30 22:45 Pulse 103 102 108 110 Resp 12 12 16 16 B/P (MAP) 128/81 (97) 127/86 (100) 124/83 (97) 117/82 (94) Pulse Ox 94 96 95 93 06/11/18 06/11/18 06/11/18 06/11/18 23:00 23:00 23:15 23:30 Pulse 103 108 119 Resp 22 14 12 B/P (MAP) 121/77 (92) 120/77 (91) 128/81 (97) Pulse Ox 93 94 95 O2 Delivery Room Air 06/11/18 06/12/18 06/12/18 06/12/18 23:46 00:00 00:15 00:30 Temp 98.4 98.4 Pulse 126 108 107 108 Resp 21 14 14 14 B/P (MAP) 148/89 (108) 130/87 (101) 120/79 (93) 125/82 (96) Pulse Ox 96 95 95 96 06/12/18 06/12/18 06/12/18 06/12/18 00:45 01:00 01:15 01:30 Pulse 110 109 109 109 Resp 14 13 15 15 B/P (MAP) 122/81 (95) 116/77 (90) 125/84 (98) 125/80 (95) Pulse Ox 94 95 96 95 06/12/18 06/12/18 06/12/18 06/12/18 01:45 02:00 02:15 02:27 Pulse 109 112 113 108 Resp 13 15 16 18 B/P (MAP) 119/79 (92) 123/77 (92) 130/84 (99) 146/85 (105) Pulse Ox 97 97 97 99 06/12/18 06/12/18 06/12/18 06/12/18 02:30 02:38 02:45 03:00 Pulse 118 113 112 107 Resp 21 18 17 13 B/P (MAP) 87/64 (72) 118/82 (94) 129/83 (98) 125/79 (94) Pulse Ox 96 97 98 99 06/12/18 06/12/18 06/12/18 06/12/18 03:15 03:30 03:45 04:00 Pulse 109 106 113 Resp 15 13 17 B/P (MAP) 122/81 (95) 127/80 (96) 130/75 (93) Pulse Ox 99 100 93 O2 Delivery Room Air 06/12/18 06/12/18 06/12/18 06/12/18 04:00 04:15 04:30 04:45 Temp 98.7 98.7 Pulse 108 111 109 102 Resp 16 16 16 13 B/P (MAP) 127/79 (95) 135/78 (97) 127/78 (94) 127/72 (90) Pulse Ox 95 95 94 95 06/12/18 06/12/18 06/12/18 06/12/18 05:00 05:15 05:30 05:45 Pulse 100 101 120 112 Resp 12 14 22 25 B/P (MAP) 136/78 (97) 130/78 (95) 118/74 (89) 127/85 (99) Pulse Ox 96 96 97 94 06/12/18 06/12/18 06/12/18 06/12/18 06:00 06:30 06:45 07:00 Pulse 107 105 102 107 Resp 16 14 15 14 B/P (MAP) 133/82 (99) 113/78 (90) 126/72 (90) 126/74 (91) Pulse Ox 95 96 93 95 06/12/18 06/12/18 06/12/18 06/12/18 07:15 07:30 07:45 08:00 Pulse 106 117 106 Resp 16 15 13 B/P (MAP) 126/73 (90) 112/81 (91) 115/69 (84) Pulse Ox 93 92 93 O2 Delivery Room Air 06/12/18 06/12/18 06/12/18 08:01 08:15 08:30 Temp 97.7 97.7 Pulse 114 109 108 Resp 18 14 14 B/P (MAP) 129/77 (94) 111/65 (80) 114/64 (81) Pulse Ox 96 94 92 Intake and Output 06/11/18 06/11/18 06/12/18 15:00 23:00 07:00 Intake Total 59633 ml 823 ml 1228 ml Output Total 250 ml 880 ml 1035 ml Balance 10495 ml -57 ml 193 ml General: Alert, Oriented X3, Cooperative, No acute distress HEENT: Atraumatic, PERRLA, EOMI, Mucous membr. moist/pink Lungs: Clear to auscultation, Normal air movement Heart: Regular rate, Normal S1, Normal S2, No murmurs Abdomen: Soft, Other (mild tenderness to palpation umbilical area, dressing in place over ostomy, surgical incision, MAGNOLIA in place) Neuro: Normal speech, Cranial nerves 3-12 NL Psych/Mental Status: Mental status NL, Mood NL All Results(Lab/Rad) Laboratory Tests Test 06/11/18 17:00 06/11/18 17:30 06/11/18 17:33 06/12/18 05:00 White Blood Count 16.2 10^3/uL 12.9 10^3/uL Red Blood Count 4.30 10^6/uL 3.66 10^6/uL Hemoglobin 13.1 g/dL 11.2 g/dL Hematocrit 38.0 % 32.7 % Mean Corpuscular Volume 88.4 fL 89.3 fL Mean Corpuscular Hemoglobin 30.5 pg 30.6 pg Mean Corpuscular Hemoglobin Concent 34.5 g/dL 34.3 g/dL Red Cell Distribution Width 13.2 % 13.3 % Platelet Count 115 10^3/uL 146 10^3/uL Mean Platelet Volume 9.6 fL 9.6 fL Neutrophils (%) (Auto) 87.3 % 77.7 % Lymphocytes (%) (Auto) 5.0 % 12.3 % Monocytes (%) (Auto) 7.2 % 9.6 % Neutrophils # (Auto) 14.1 10^3/uL 10.0 10^3/uL Lymphocytes # (Auto) 0.8 10^3/uL 1.6 10^3/uL Monocytes # (Auto) 1.2 10^3/uL 1.2 10^3/uL Absolute Immature Granulocyte (auto 0.07 10^3 u/L 0.04 10^3 u/L Eosinophils % 0.0 % 0.0 % Basophils % 0.1 % 0.1 % Basophils # 0.0 10^3/uL 0.0 10^3/uL Eosinophil Count 0.0 10^3/uL 0.0 10^3/uL Percent Immature Gran (Cell Imm) 0.40 % 0.30 % Sodium Level 134 mmol/L 136 mmol/L Potassium Level 4.6 mmol/L 4.8 mmol/L Chloride Level 102.0 mmol/L 102.0 mmol/L Carbon Dioxide Level 18.9 mmol/L 23.6 mmol/L Anion Gap 17.7 15.2 Blood Urea Nitrogen 9 mg/dL 10 mg/dL Creatinine 0.81 mg/dL 0.96 mg/dL Estimated GFR () 120.2 98.8 BUN/Creatinine Ratio 11.0 10.0 Glucose Level 315 mg/dL 280 mg/dL Calcium Level 8.1 mg/dL 8.3 mg/dL Total Bilirubin 0.8 mg/dL 0.8 mg/dL Aspartate Amino Transf (AST/SGOT) 26 U/L 19 U/L Alanine Aminotransferase (ALT/SGPT) 33 U/L 30 U/L Alkaline Phosphatase 114 U/L 97 U/L Total Protein 6.3 g/dL 6.2 g/dL Albumin 3.0 g/dL 2.8 g/dL Globulin 3.3 3.4 Differential Total Cells Counted 100 #CELLS Segmented Neutrophils 92 % Lymphocytes 3 % Monocytes 5 % Differential Comment NORMAL Platelet Estimate ADEQUATE Platelet Morphology NORMAL Blood Morphology Comment NORMAL MORPHOLOGY Current Medications Medications (Trade) Dose Ordered Sig/Escobar Route PRN Reason Start Time Stop Time Status Last Admin Dose Admin Enoxaparin Sodium (Lovenox) 40 mg OT ONCE SQ 06/11/18 06:45 06/11/18 16:12 DC 06/11/18 06:53 Cefoxitin Sodium (Mefoxin) 1 gm STK-MED ONCE .ROUTE 06/11/18 05:55 06/11/18 05:56 DC Sodium Chloride 100 ml @ ud STK-MED ONCE IV 06/11/18 05:55 06/11/18 05:57 DC Dexamethasone Sodium Phosphate (Decadron) 4 mg STK-MED ONCE .ROUTE 06/11/18 06:46 06/11/18 06:47 DC Neostigmine Methylsulfate (Neostigmine) 10 mg STK-MED ONCE .ROUTE 06/11/18 06:46 06/11/18 06:48 DC Ondansetron HCl (Zofran) 4 mg STK-MED ONCE .ROUTE 06/11/18 06:46 06/11/18 06:48 DC Ketorolac Tromethamine (Toradol) 30 mg STK-MED ONCE .ROUTE 06/11/18 06:46 06/11/18 06:48 DC Rocuronium [place] (Zemuron) 100 mg STK-MED ONCE IV 06/11/18 06:46 06/11/18 06:48 DC Hydromorphone HCl (Dilaudid) 2 mg STK-MED ONCE .ROUTE 06/11/18 06:47 06/11/18 06:48 DC Fentanyl Citrate (Sublimaze) 100 mcg STK-MED ONCE .ROUTE 06/11/18 06:47 06/11/18 06:49 DC Propofol (Diprivan) 200 mg STK-MED ONCE IV 06/11/18 06:47 06/11/18 06:49 DC Midazolam HCl (Versed) 1 mg STK-MED ONCE .ROUTE 06/11/18 06:48 06/11/18 06:49 DC Lidocaine HCl (Lidocaine 2% Vial) 500 mg STK-MED ONCE .ROUTE 06/11/18 06:48 06/11/18 06:50 DC Sodium Chloride (Sodium Chloride) 1,000 ml STK-MED ONCE IR 06/11/18 07:00 06/11/18 07:02 DC Sterile Water (Water) 1,000 ml STK-MED ONCE .ROUTE 06/11/18 07:01 06/11/18 07:02 DC Bupivacaine HCl (Sensorcaine-Mpf 0.25% Vial) 2.5 mg STK-MED ONCE .ROUTE 06/11/18 07:01 06/11/18 07:02 DC Labetalol HCl (Trandate) 20 mg STK-MED ONCE IV 06/11/18 07:22 06/11/18 07:23 DC Sodium Chloride 1,000 ml @ ud STK-MED ONCE .ROUTE 06/11/18 08:41 06/11/18 08:42 DC Sterile Water (Water) 1,000 ml STK-MED ONCE .ROUTE 06/11/18 09:30 06/11/18 09:32 DC Sterile Water (Water) 1,000 ml STK-MED ONCE .ROUTE 06/11/18 09:46 06/11/18 09:47 DC Cefoxitin Sodium (Mefoxin) 1 gm STK-MED ONCE .ROUTE 06/11/18 10:34 06/11/18 10:35 DC Sodium Chloride 100 ml @ ud STK-MED ONCE IV 06/11/18 10:34 06/11/18 10:35 DC Sterile Water (Water) 1,000 ml STK-MED ONCE .ROUTE 06/11/18 11:04 06/11/18 11:05 DC Morphine Sulfate (Morphine Sulfate) 1 mg Q4H PRN IV PAIN 4 - 6 06/11/18 12:00 07/11/18 11:59 Morphine Sulfate (Morphine Sulfate) 3 mg Q3H PRN IV PAIN 7 - 10 06/11/18 12:00 07/11/18 11:59 06/12/18 07:48 Acetaminophen/ Hydrocodone Bitart ([place] 5mg) 1 ea Q4H PRN PO PAIN 4 - 6 06/11/18 12:00 07/11/18 11:59 06/11/18 20:50 Acetaminophen (Tylenol) 650 mg Q6 PRN PO FEVER/MILD PAIN 06/11/18 12:00 07/11/18 11:59 Pantoprazole Sodium (Protonix Iv) 40 mg DAILY IV 06/12/18 09:00 07/12/18 08:59 Simethicone (Genasyme) 80 mg Q4 PRN PO GAS/BLOATING 06/11/18 12:00 07/11/18 11:59 06/12/18 05:10 Enoxaparin Sodium (Lovenox) 40 mg DAILY@0830 SQ 06/12/18 08:30 07/12/18 08:29 Potassium Chloride/Dextrose/ Sod Cl 1,000 ml @ 125 mls/hr Q8H IV 06/11/18 11:58 07/11/18 11:57 06/11/18 20:49 Hydromorphone HCl (Dilaudid) 1 mg Q4H PRN IV PAIN 7 - 10 06/11/18 12:00 07/11/18 11:59 Cefoxitin Sodium 1 gm/Sodium Chloride 100 ml @ 100 mls/hr Q6 IV 06/11/18 12:00 06/12/18 07:17 DC 06/12/18 05:27 Sodium Chloride 1,000 ml @ STK-MED ONCE .ROUTE 06/11/18 12:08 06/11/18 12:09 DC Hydromorphone HCl (Dilaudid) 0.2 mg Q5MIN PRN IV PAIN 1 - 3 06/11/18 12:30 06/11/18 16:06 DC 06/11/18 12:54 Ondansetron HCl (Zofran) 4 mg PRN PRN IV nv 06/11/18 12:30 06/11/18 16:13 DC Promethazine HCl (Phenergan) 6.25 mg PRN PRN IV NAUSEA / VOMITING 06/11/18 12:30 06/11/18 16:13 DC Diphenhydramine HCl (Benadryl) 25 mg Q5MIN PRN IV NAUSEA / VOMITING 06/11/18 12:30 06/11/18 16:06 DC Acetaminophen (Tylenol) 325 mg Q4 PRN PO FEVER 06/11/18 17:00 07/11/18 16:59 Levetiracetam (Keppra) 500 mg BID PO 06/11/18 21:00 07/11/18 20:59 06/11/18 20:51 Sertraline HCl (Zoloft) 50 mg DAILY PO 06/12/18 09:00 07/12/18 08:59 Risperidone (Risperdal) 0.5 mg DAILY24 PO 06/12/18 09:00 07/12/18 08:59 Risperidone (Risperdal) 0.75 mg HS PO 06/11/18 21:00 07/11/18 20:59 06/11/18 20:51 Insulin Human Regular (Humulin R) Give 30 minutes before meal ACHS SQ 06/11/18 17:30 07/11/18 17:29 06/11/18 21:55 Dextrose (Dextrose 50%-Water Syringe) 25 ml STAT PRN IV HYPOGLYCEMIA 06/11/18 17:00 07/11/18 16:59 Lorazepam (Ativan) 1 mg Q4HR PRN IM AGITATION 06/11/18 17:00 07/11/18 16:59 Metoclopramide HCl (Reglan) 10 mg Q6 PRN IV NAUSEA / VOMITING 06/11/18 19:00 07/11/18 18:59 06/12/18 05:10 Course Sepsis Screening Results: Posi: NEGATIVE Sepsis Qualifier/Stage: NO DEFINITE RISK Vitals & review Data Vital Sign - Last 24 Hours 06/11/18 06/11/18 06/11/18 06/11/18 12:15 12:15 12:24 12:29 Temp 98.5 98.5 98.5 98.5 98.5 98.5 Pulse 71 70 76 Resp 18 18 18 B/P (MAP) 150/96 (114) 144/94 (111) 140/90 (107) Pulse Ox 100 100 100 O2 Delivery Non-Rebreather Non-Rebreather Room Air O2 Flow Rate 10 10 5 06/11/18 06/11/18 06/11/18 06/11/18 12:40 12:50 12:59 13:10 Temp 98.8 97.7 98.4 98.7 98.8 97.7 98.4 98.7 Pulse 83 79 81 79 Resp 18 18 18 18 B/P (MAP) 147/97 (114) 140/88 (105) 148/90 (109) 145/96 (112) Pulse Ox 98 96 97 99 O2 Delivery Nasal Canula Nasal Canula Nasal Canula Nasal Canula O2 Flow Rate 2 2 2 2 06/11/18 06/11/18 06/11/18 06/11/18 13:46 13:48 13:49 14:00 Temp 98.7 98.7 Pulse 100 78 Resp 10 10 16 16 B/P (MAP) 146/96 (113) 140/93 (109) Pulse Ox 79 79 98 99 O2 Delivery Nasal Cannula O2 Flow Rate 2.00 FiO2 28 06/11/18 06/11/18 06/11/18 06/11/18 14:15 14:25 14:30 14:45 Pulse 87 84 87 Resp 16 12 13 B/P (MAP) 142/88 (106) 141/88 (105) 145/92 (109) Pulse Ox 99 99 99 O2 Delivery Nasal Cannula O2 Flow Rate 2.00 06/11/18 06/11/18 06/11/18 06/11/18 15:00 15:15 15:30 15:45 Pulse 82 87 98 84 Resp 12 16 16 16 B/P (MAP) 145/93 (110) 145/87 (106) 165/91 (115) 134/85 (101) Pulse Ox 100 100 100 100 06/11/18 06/11/18 06/11/18 06/11/18 16:00 16:15 16:30 16:45 Pulse 81 93 79 78 Resp 16 10 10 10 B/P (MAP) 131/79 (96) 144/97 (113) 139/87 (104) 134/92 (106) Pulse Ox 100 100 100 100 06/11/18 06/11/18 06/11/18 06/11/18 17:00 17:10 17:15 17:30 Pulse 96 102 105 96 Resp 21 16 15 17 B/P (MAP) 139/90 (106) 143/93 (110) 111/80 (90) 132/85 (101) Pulse Ox 97 97 92 93 06/11/18 06/11/18 06/11/18 06/11/18 17:45 18:00 18:15 18:30 Pulse 98 100 100 97 Resp 16 15 17 12 Pulse Ox 94 94 94 93 06/11/18 06/11/18 06/11/18 06/11/18 18:45 19:00 19:00 19:04 Temp 98.5 98.5 Pulse 97 98 91 Resp 13 14 12 B/P (MAP) 133/86 (102) Pulse Ox 95 96 97 O2 Delivery Nasal Cannula O2 Flow Rate 2.00 06/11/18 06/11/18 06/11/18 06/11/18 19:15 19:30 19:45 20:00 Pulse 90 92 88 96 Resp 13 14 11 16 B/P (MAP) 124/81 (95) 127/79 (95) 128/83 (98) 126/83 (97) Pulse Ox 93 94 94 97 06/11/18 06/11/18 06/11/18 06/11/18 20:15 20:30 20:45 21:00 Pulse 99 96 91 104 Resp 14 12 12 15 B/P (MAP) 122/84 (97) 124/83 (97) 125/82 (96) 121/84 (96) Pulse Ox 93 94 94 94 06/11/18 06/11/18 06/11/18 06/11/18 21:15 21:30 21:42 21:45 Pulse 101 101 90 105 Resp 13 16 18 16 B/P (MAP) 127/85 (99) 118/84 (95) 123/85 (98) Pulse Ox 94 95 94 94 O2 Delivery Nasal Cannula FiO2 21 06/11/18 06/11/18 06/11/18 06/11/18 22:00 22:15 22:30 22:45 Pulse 103 102 108 110 Resp 12 12 16 16 B/P (MAP) 128/81 (97) 127/86 (100) 124/83 (97) 117/82 (94) Pulse Ox 94 96 95 93 06/11/18 06/11/18 06/11/18 06/11/18 23:00 23:00 23:15 23:30 Pulse 103 108 119 Resp 22 14 12 B/P (MAP) 121/77 (92) 120/77 (91) 128/81 (97) Pulse Ox 93 94 95 O2 Delivery Room Air 06/11/18 06/12/18 06/12/18 06/12/18 23:46 00:00 00:15 00:30 Temp 98.4 98.4 Pulse 126 108 107 108 Resp 21 14 14 14 B/P (MAP) 148/89 (108) 130/87 (101) 120/79 (93) 125/82 (96) Pulse Ox 96 95 95 96 06/12/18 06/12/18 06/12/18 06/12/18 00:45 01:00 01:15 01:30 Pulse 110 109 109 109 Resp 14 13 15 15 B/P (MAP) 122/81 (95) 116/77 (90) 125/84 (98) 125/80 (95) Pulse Ox 94 95 96 95 06/12/18 06/12/18 06/12/18 06/12/18 01:45 02:00 02:15 02:27 Pulse 109 112 113 108 Resp 13 15 16 18 B/P (MAP) 119/79 (92) 123/77 (92) 130/84 (99) 146/85 (105) Pulse Ox 97 97 97 99 06/12/18 06/12/18 06/12/18 06/12/18 02:30 02:38 02:45 03:00 Pulse 118 113 112 107 Resp 21 18 17 13 B/P (MAP) 87/64 (72) 118/82 (94) 129/83 (98) 125/79 (94) Pulse Ox 96 97 98 99 06/12/18 06/12/18 06/12/18 06/12/18 03:15 03:30 03:45 04:00 Pulse 109 106 113 Resp 15 13 17 B/P (MAP) 122/81 (95) 127/80 (96) 130/75 (93) Pulse Ox 99 100 93 O2 Delivery Room Air 06/12/18 06/12/18 06/12/18 06/12/18 04:00 04:15 04:30 04:45 Temp 98.7 98.7 Pulse 108 111 109 102 Resp 16 16 16 13 B/P (MAP) 127/79 (95) 135/78 (97) 127/78 (94) 127/72 (90) Pulse Ox 95 95 94 95 06/12/18 06/12/18 06/12/18 06/12/18 05:00 05:15 05:30 05:45 Pulse 100 101 120 112 Resp 12 14 22 25 B/P (MAP) 136/78 (97) 130/78 (95) 118/74 (89) 127/85 (99) Pulse Ox 96 96 97 94 06/12/18 06/12/18 06/12/18 06/12/18 06:00 06:30 06:45 07:00 Pulse 107 105 102 107 Resp 16 14 15 14 B/P (MAP) 133/82 (99) 113/78 (90) 126/72 (90) 126/74 (91) Pulse Ox 95 96 93 95 06/12/18 06/12/18 06/12/18 06/12/18 07:15 07:30 07:45 08:00 Pulse 106 117 106 Resp 16 15 13 B/P (MAP) 126/73 (90) 112/81 (91) 115/69 (84) Pulse Ox 93 92 93 O2 Delivery Room Air 06/12/18 06/12/18 06/12/18 08:01 08:15 08:30 Temp 97.7 97.7 Pulse 114 109 108 Resp 18 14 14 B/P (MAP) 129/77 (94) 111/65 (80) 114/64 (81) Pulse Ox 96 94 92 Intake and Output 06/11/18 06/11/18 06/12/18 15:00 23:00 07:00 Intake Total 77517 ml 823 ml 1228 ml Output Total 250 ml 880 ml 1035 ml Balance 38589 ml -57 ml 193 ml Laboratory Tests Test 06/11/18 17:00 06/11/18 17:30 06/11/18 17:33 06/12/18 05:00 White Blood Count 16.2 10^3/uL 12.9 10^3/uL Red Blood Count 4.30 10^6/uL 3.66 10^6/uL Hemoglobin 13.1 g/dL 11.2 g/dL Hematocrit 38.0 % 32.7 % Mean Corpuscular Volume 88.4 fL 89.3 fL Mean Corpuscular Hemoglobin 30.5 pg 30.6 pg Mean Corpuscular Hemoglobin Concent 34.5 g/dL 34.3 g/dL Red Cell Distribution Width 13.2 % 13.3 % Platelet Count 115 10^3/uL 146 10^3/uL Mean Platelet Volume 9.6 fL 9.6 fL Neutrophils (%) (Auto) 87.3 % 77.7 % Lymphocytes (%) (Auto) 5.0 % 12.3 % Monocytes (%) (Auto) 7.2 % 9.6 % Neutrophils # (Auto) 14.1 10^3/uL 10.0 10^3/uL Lymphocytes # (Auto) 0.8 10^3/uL 1.6 10^3/uL Monocytes # (Auto) 1.2 10^3/uL 1.2 10^3/uL Absolute Immature Granulocyte (auto 0.07 10^3 u/L 0.04 10^3 u/L Eosinophils % 0.0 % 0.0 % Basophils % 0.1 % 0.1 % Basophils # 0.0 10^3/uL 0.0 10^3/uL Eosinophil Count 0.0 10^3/uL 0.0 10^3/uL Percent Immature Gran (Cell Imm) 0.40 % 0.30 % Sodium Level 134 mmol/L 136 mmol/L Potassium Level 4.6 mmol/L 4.8 mmol/L Chloride Level 102.0 mmol/L 102.0 mmol/L Carbon Dioxide Level 18.9 mmol/L 23.6 mmol/L Anion Gap 17.7 15.2 Blood Urea Nitrogen 9 mg/dL 10 mg/dL Creatinine 0.81 mg/dL 0.96 mg/dL Estimated GFR () 120.2 98.8 BUN/Creatinine Ratio 11.0 10.0 Glucose Level 315 mg/dL 280 mg/dL Calcium Level 8.1 mg/dL 8.3 mg/dL Total Bilirubin 0.8 mg/dL 0.8 mg/dL Aspartate Amino Transf (AST/SGOT) 26 U/L 19 U/L Alanine Aminotransferase (ALT/SGPT) 33 U/L 30 U/L Alkaline Phosphatase 114 U/L 97 U/L Total Protein 6.3 g/dL 6.2 g/dL Albumin 3.0 g/dL 2.8 g/dL Globulin 3.3 3.4 Differential Total Cells Counted 100 #CELLS Segmented Neutrophils 92 % Lymphocytes 3 % Monocytes 5 % Differential Comment NORMAL Platelet Estimate ADEQUATE Platelet Morphology NORMAL Blood Morphology Comment NORMAL MORPHOLOGY Current Medications Medications (Trade) Dose Ordered Sig/Escobar PRN Reason Start Time Stop Time Status Last Admin Acetaminophen (Tylenol) 325 mg Q4 PRN FEVER 06/11/18 17:00 07/11/18 16:59 Acetaminophen (Tylenol) 650 mg Q6 PRN FEVER/MILD PAIN 06/11/18 12:00 07/11/18 11:59 Acetaminophen/ Hydrocodone Bitart ([place] 5mg) 1 ea Q4H PRN PAIN 4 - 6 06/11/18 12:00 07/11/18 11:59 06/11/18 20:50 Dextrose (Dextrose 50%-Water Syringe) 25 ml STAT PRN HYPOGLYCEMIA 06/11/18 17:00 07/11/18 16:59 Enoxaparin Sodium (Lovenox) 40 mg DAILY@0830 06/12/18 08:30 07/12/18 08:29 Hydromorphone HCl (Dilaudid) 1 mg Q4H PRN PAIN 7 - 10 06/11/18 12:00 07/11/18 11:59 Insulin Human Regular (Humulin R) Give 30 minutes before meal ACHS 06/11/18 17:30 07/11/18 17:29 06/11/18 21:55 Levetiracetam (Keppra) 500 mg BID 06/11/18 21:00 07/11/18 20:59 06/11/18 20:51 Lorazepam (Ativan) 1 mg Q4HR PRN AGITATION 06/11/18 17:00 07/11/18 16:59 Metoclopramide HCl (Reglan) 10 mg Q6 PRN NAUSEA / VOMITING 06/11/18 19:00 07/11/18 18:59 06/12/18 05:10 Morphine Sulfate (Morphine Sulfate) 1 mg Q4H PRN PAIN 4 - 6 06/11/18 12:00 07/11/18 11:59 Morphine Sulfate (Morphine Sulfate) 3 mg Q3H PRN PAIN 7 - 10 06/11/18 12:00 07/11/18 11:59 06/12/18 07:48 Pantoprazole Sodium (Protonix Iv) 40 mg DAILY 06/12/18 09:00 07/12/18 08:59 Potassium Chloride/Dextrose/ Sod Cl 1,000 ml @ 125 mls/hr Q8H 06/11/18 11:58 07/11/18 11:57 06/11/18 20:49 Risperidone (Risperdal) 0.5 mg DAILY24 06/12/18 09:00 07/12/18 08:59 Risperidone (Risperdal) 0.75 mg HS 06/11/18 21:00 07/11/18 20:59 06/11/18 20:51 Sertraline HCl (Zoloft) 50 mg DAILY 06/12/18 09:00 07/12/18 08:59 Simethicone (Genasyme) 80 mg Q4 PRN GAS/BLOATING 06/11/18 12:00 07/11/18 11:59 06/12/18 05:10 Sepsis Infection Criteria Pres: None LEVEL 1 SEPSIS INFECTION CRITE: Abdominal Pain, Recent Invasive Procedure LEVEL 2-SIRS (LIST ALL THAT AP: HR>90/min Cardiovascular Evidence: Not Assessed or None Hematologic Evidence: None/Not assessed Hepatic Evidence: None/Not assessed Metabolic Evidence: None/Not assessed Neurological Evidence: None/Not assessed Respiratory Evidence: None/Not assessed Renal Evidence: None/Not assessed O2 Sat by Pulse Oximetry: 95 Oxygen Flow Rate: 2.00 Assessment/Plan Assessment/Plan Assessment/Plan 1. Colostomy Reversal - POD#5. Cont pain control, - Continue IV Abx. - ADAT per Dr. Aragon - Increase pulm hygiene, activity. - Greatly appreciate Dr. Aragon. - Home 1 to 2 days. 2. DM: Cont holding home basal insulin. MDSSI to cover for now. - Will likely need to get back on long acting insulin when eating more. 3. Seizure Disorder: cont keppra, - Ativan PRN 4. Generalized Anxiety Disorder: I think this is contributing to him not feeling well currently. - restart SSRI, Ativan PRN. Holding Xanax. 5. GERD: cont PPI 6. PPx: Lovenox, PPI Plan PRIYANKA WAY MD Jun 16, 2018 18:25
[2018-06-16 19:19] LABS: MICROCYTOSIS 1+ (NEGATIVE); SMUDGE CELLS 1+ (NEGATIVE)
[2018-06-16] MEDS: D5W-1/2 NS/KCL 20MEQ 1,000 ML IV SCH (19:28)
[2018-06-16 20:05] VITALS: BP 151/88
--- NOTE | 2018-06-16 23:10 | PNH ---
DATE: BRIEF FOLLOWUP VISIT SUBJECTIVE: A 52-year-old male in no acute distress. He is seen in his room in the bed on multiple occasions today. The nurses report he has been up and moving and tolerating some diet. OBJECTIVE: VITAL SIGNS: Last temperature is 98.6, pulse 109, respiratory rate 16, blood pressure 140/86. ABDOMEN: The bowel sounds are positive and soft. His bruises are improving in the midline. His left lower quadrant incision is healing appropriately. LABORATORY DATA: Today show white count 9.3, hemoglobin 11.9, platelet count 200. Chemistry today shows BUN of 11, creatinine 0.87, potassium is 3.8. ASSESSMENTS: 1. Status post exploratory laparotomy and reversal of colostomy. 2. History of diabetes. PLAN: The patient is seen and examined. Chart was reviewed. This patient has not had a clinically significant bowel movement since his surgery, will continue diet and activity as tolerated. When his gut function is restored, he may return to the facility he resides at. Neal Aragon DO DR: OTIS/alex JOB# [id number] CC: Rodney Barbosa MD
[2018-06-17] VITALS (7 sets, daily range): BP systolic 121–156; BP diastolic 42–93
--- NOTE | 2018-06-17 08:10 | NUR ---
STATUS PT SITTING UP IN W/C FOR BREAKFAST. PT AMBULATED TO CHAIR AND BACK TO BED. NO S/S OF DISTRESS NOTED. WILL CONT TO MONITOR. CALL LIGHT WITHIN REACH.
[2018-06-17] MEDS: HUMULIN R SQ SCH ×4 (08:53→20:33)
[2018-06-17] MEDS: LANTUS SQ SCH (08:58)
[2018-06-17] MEDS: PROTONIX IV IV SCH (09:02)
[2018-06-17] MEDS: ANTIVERT PO SCH ×3 (09:02→20:33)
[2018-06-17] MEDS: ZOLOFT PO SCH (09:02)
[2018-06-17] MEDS: COLACE PO SCH ×5 (09:02→20:33)
[2018-06-17] MEDS: KEPPRA PO SCH ×2 (09:03→20:31)
[2018-06-17] MEDS: FIBERCON PO SCH (09:03)
[2018-06-17] MEDS: COZAAR PO SCH (09:03)
[2018-06-17] MEDS: RISPERDAL PO SCH ×2 (09:09→20:32)
--- NOTE | 2018-06-17 13:20 | NUR ---
AMBULATION PT AMBULATED IN HALLWAY WITH NURSE ASSISTANCE 100 FEET. NO S/S OF DISTRESS NOTED.WILL CONT TO MONITOR
--- NOTE | 2018-06-17 14:45 | NUR ---
CUSTODIAL CUSTODIAL UPDATED ON PLAN TO D/C PIC WHEN HE HAS A BOWEL MOVEMENT
--- NOTE | 2018-06-17 15:18 | DIREP ---
PROCEDURE:XR ABDOMEN 2 VIEWS COMPARISON:None. INDICATIONS:Ileus TECHNIQUE:Flat and upright views of the abdomen are provided. FINDINGS: BOWEL GAS PATTERN:Gaseous distention of nondilated colon to the level of the rectum. No subdiaphragmatic free air. Midline abdominal skin sohan. CALCIFICATIONS:None significant. LUNG BASES:Clear. BONES:Normal. OTHER:No additional findings. CONCLUSION:Findings suggestive of postoperative ileus. Dictated by: Milvia Crowell MD on 06/17/2018 at 03:14 PM
--- NOTE | 2018-06-17 15:20 | NUR ---
STATUS PT GIVEN BED BATH
[2018-06-17] MEDS: D5W-1/2 NS/KCL 20MEQ 1,000 ML IV SCH (15:28)
[2018-06-17] MEDS ORDERED: DULCOLAX EC TABLET PO STA (16:57)
--- NOTE | 2018-06-17 20:00 | NUR ---
PT INCONTINENT OF URINE, TAE CARE PER NURSING. UP IN CHAIR WHILE LINEN CHANGE IS DONE. PT UP WITH WALKER AND ASSIST X1 TO AMBULATE IN HAINES. AMBULATED 100 FT. PT BACK TO ROOM AND TO BR. PT HAS A MEDIUM BLOODY STOOL, TAE CARE PER NURSING. PT BACK TO BED. CALL LIGHT IN REACH
--- NOTE | 2018-06-17 23:20 | PNH ---
DATE: BRIEF FOLLOWUP VISIT SUBJECTIVE: A 52-year-old male, in no acute distress, seen in his room. He is tolerating some diet. He is ambulating slightly more. He has had no significant bowel movement since surgery. OBJECTIVE: VITAL SIGNS: Last temperature is 99.1, pulse 106, respiratory rate 18, blood pressure 141/86. ABDOMEN: The bowel sounds are positive, soft. His midline incision is intact. The left lower quadrant incision was loosely approximated with minimal drainage. There appears to be some granulation tissue developing in the wound. ASSESSMENT: 1. Status post exploratory laparotomy with reversal of colostomy. 2. History of diabetes. 3. Postoperative ileus. PLAN: 1. The patient is seen and examined. Chart was reviewed. I have increased his cathartics. He is advised to increase his p.o. liquids and increase the activity. Neal Aragon DO DR: OTIS/alex JOB# [id number] CC: Rodney Barbosa MD
[2018-06-18] MEDS ORDERED: LANOLIN HYDROUS TP ONE (00:03)
[2018-06-18] MEDS: NORCO 5MG PO PRN (00:22)
[2018-06-18 03:48] VITALS: BP 142/85
[2018-06-18 04:53] LABS: HEMOGLOBIN 10.9 g/dL (13.9-16.3); MEAN CELL HGB 30.9 pg (26-34); MEAN CELL HGB CONCENTRATION 33.9 g/dL (33-37); MEAN CORP VOLUME 91.2 fL (78-100); MEAN PLATELET VOLUME 8.9 fL (7.8-11.0); RED CELL DISTRIBUTION WIDTH 13.6 % (11.5-14.5); WHITE BLOOD CELL 11.4 10^3/uL (4.5-11.0)
[2018-06-18 05:07] LABS: CALCIUM 8.9 mg/dL (8.4-10.5)
[2018-06-18] MEDS ORDERED: DULCOLAX EC TABLET PO SCH (06:00)
[2018-06-18] MEDS: REGLAN IV PRN (06:35)
[2018-06-18] MEDS: HUMULIN R SQ SCH ×2 (07:36→12:02)
[2018-06-18] MEDS: ZOLOFT PO SCH (08:11)
[2018-06-18] MEDS: ANTIVERT PO SCH (08:11)
[2018-06-18] MEDS: KEPPRA PO SCH (08:11)
[2018-06-18] MEDS: PROTONIX IV IV SCH (08:11)
[2018-06-18] MEDS: FIBERCON PO SCH (08:11)
[2018-06-18] MEDS: COZAAR PO SCH (08:12)
[2018-06-18 08:21] VITALS: BP 128/85
[2018-06-18] MEDS ORDERED: LANTUS SQ SCH (09:00)
[2018-06-18] MEDS ORDERED: CeleXA PO SCH (09:00)
[2018-06-18] MEDS: COLACE PO SCH ×2 (09:00→09:15)
[2018-06-18] MEDS ORDERED: TOPROL XL PO SCH (09:00)
[2018-06-18] MEDS: RISPERDAL PO SCH (09:15)
[2018-06-18] MEDS ORDERED: TRIPLE ANTIBIOTIC OINTMENT TP ONE (10:10)
--- NOTE | 2018-06-18 10:38 | PRM.PN ---
Subjective Subjective Date: Jun 18, 2018 Time: 10:36 Subjective Not wanting to do much. + Anhedonia. Anxious about going back to SNF. Doesn't want out of bed. Not eating much. Decreased appetitie. Wants to go back to SNF soon. Feeling overall more anxious and depressed. Patient History: Diabetes mellitus G8 SISTER FH: brain tumor G8 BROTHER, FH: cancer 32 MOTHER, No known health problems 33 FATHER, Pacemaker 32 MOTHER, Relative being killed G8 SISTER, VTE VTE Risk Total Score: 5 VTE Risk Score VTE Risk: Score 0-1 = Low Risk (Aggressive mobilization; early ambulation; no VTE prophylaxis required) Score 2: Moderate Risk (Intermittent/Pneumatic Compression Device OR Lovenox/Heparin/Coumadin) Score 3-4: High Risk (Intermittent/Pneumatic Compression Device AND Lovenox/Heparin/Coumadin) Score > or =5: Highest Risk (Intermittent/Pneumatic Compression Device AND Lovenox/Heparin/Coumadin) Review of Systems Constitutional: No: Fever, Chills Eyes: No: Conjunctivae inflammation, Eyelid inflammation ENT: No: Nose discharge, Nose congestion Respiratory: No: Cough, Shortness of breath, SOB with excertion, Wheezing Cardiovascular: No: Chest Pain, Palpitations, Edema Gastrointestinal: No: Nausea, Vomiting, Abdominal Pain Genitourinary: No Hematuria, No Retention Musculoskeletal: neck pain, back pain Skin: Rash; No: Lesions, Jaundice, Bruising Neurological: No: Weakness, Numbness, Incoordination, Change in speech, Confusion, Seizures Allergies: Coded Allergies: No Known Allergies (Unverified , 06/07/18) Scheduled Alprazolam (Xanax), 1 TAB PO TID, (Reported) Clonidine Hcl (Clonidine Hcl), 1 TAB PO HS, (Reported) Cranberry (Cranberry), 450 MG PO BID, (Reported) Cyclobenzaprine Hcl (Flexeril), 1 TAB PO BID, (Reported) Docusate Sodium (Colace), 1 CAP PO BID, (Reported) Erythromycin Base (Erythromycin), 250 MG PO TID, (Reported) Furosemide (Lasix), 1 TAB PO DAILY, (Reported) Gabapentin (Gabapentin), 1 CAP PO HS, (Reported) Insulin Degludec (Tresiba), 20 UNITS SUBCUT DAILY24, (Reported) Insulin Regular, Human (Humulin R), 0 IJ QID, (Reported) Levetiracetam (Keppra), 1 TAB PO BID, (Reported) Meloxicam (Meloxicam), 1 TAB PO DAILY, (Reported) Omeprazole (Omeprazole), 1 TAB PO DAILY, (Reported) Psyllium Husk/Aspartame (Metamucil Sugar-Free Powder), 283 GM PO BID, (Reported) Risperidone (Risperdal), 1 TAB PO DAILY24, (Reported) Risperidone (Risperdal), 1.5 TAB PO HS, (Reported) Sertraline Hcl (Zoloft), 1 TAB PO DAILY, (Reported) Scheduled PRN Acetaminophen (Acetaminophen), 650 TAB PO Q4 PRN for FEVER, (Reported) Guaifenesin (Humaira-Tussin), 10 ML PO Q4 PRN for COUGH, (Reported) Loperamide Hcl (Loperamide), 2 MG PO PRN PRN for DIARRHEA, (Reported) Mag Hydrox/Al Hydrox/Simeth (Humaira-Lanta Liquid), 30 ML PO Q6 PRN for INDIGESTION , (Reported) Magnesium Hydroxide (Milk Of Magnesia), 30 MG PO DAILY24 PRN for CONSTIPATION, ( Reported) Na Phos,M-B/Na Phos,Di-Ba (Fleet Enema), 133 ML RC PRN PRN for CONSTIPATION, ( Reported) Tizanidine Hcl (Tizanidine Hcl), 0.5 TAB PO BID PRN for MUSCLE SPASM, (Reported) Objective Vitals and I/O Vital Sign - Last 24 Hours 06/11/18 06/11/18 06/11/18 06/11/18 12:15 12:15 12:24 12:29 Temp 98.5 98.5 98.5 98.5 98.5 98.5 Pulse 71 70 76 Resp 18 18 18 B/P (MAP) 150/96 (114) 144/94 (111) 140/90 (107) Pulse Ox 100 100 100 O2 Delivery Non-Rebreather Non-Rebreather Room Air O2 Flow Rate 10 10 5 06/11/18 06/11/18 06/11/18 06/11/18 12:40 12:50 12:59 13:10 Temp 98.8 97.7 98.4 98.7 98.8 97.7 98.4 98.7 Pulse 83 79 81 79 Resp 18 18 18 18 B/P (MAP) 147/97 (114) 140/88 (105) 148/90 (109) 145/96 (112) Pulse Ox 98 96 97 99 O2 Delivery Nasal Canula Nasal Canula Nasal Canula Nasal Canula O2 Flow Rate 2 2 2 2 06/11/18 06/11/18 06/11/18 06/11/18 13:46 13:48 13:49 14:00 Temp 98.7 98.7 Pulse 100 78 Resp 10 10 16 16 B/P (MAP) 146/96 (113) 140/93 (109) Pulse Ox 79 79 98 99 O2 Delivery Nasal Cannula O2 Flow Rate 2.00 FiO2 28 06/11/18 06/11/18 06/11/18 06/11/18 14:15 14:25 14:30 14:45 Pulse 87 84 87 Resp 16 12 13 B/P (MAP) 142/88 (106) 141/88 (105) 145/92 (109) Pulse Ox 99 99 99 O2 Delivery Nasal Cannula O2 Flow Rate 2.00 06/11/18 06/11/18 06/11/18 06/11/18 15:00 15:15 15:30 15:45 Pulse 82 87 98 84 Resp 12 16 16 16 B/P (MAP) 145/93 (110) 145/87 (106) 165/91 (115) 134/85 (101) Pulse Ox 100 100 100 100 06/11/18 06/11/18 06/11/18 06/11/18 16:00 16:15 16:30 16:45 Pulse 81 93 79 78 Resp 16 10 10 10 B/P (MAP) 131/79 (96) 144/97 (113) 139/87 (104) 134/92 (106) Pulse Ox 100 100 100 100 06/11/18 06/11/18 06/11/18 06/11/18 17:00 17:10 17:15 17:30 Pulse 96 102 105 96 Resp 21 16 15 17 B/P (MAP) 139/90 (106) 143/93 (110) 111/80 (90) 132/85 (101) Pulse Ox 97 97 92 93 06/11/18 06/11/18 06/11/18 06/11/18 17:45 18:00 18:15 18:30 Pulse 98 100 100 97 Resp 16 15 17 12 Pulse Ox 94 94 94 93 06/11/18 06/11/18 06/11/18 06/11/18 18:45 19:00 19:00 19:04 Temp 98.5 98.5 Pulse 97 98 91 Resp 13 14 12 B/P (MAP) 133/86 (102) Pulse Ox 95 96 97 O2 Delivery Nasal Cannula O2 Flow Rate 2.00 06/11/18 06/11/18 06/11/18 06/11/18 19:15 19:30 19:45 20:00 Pulse 90 92 88 96 Resp 13 14 11 16 B/P (MAP) 124/81 (95) 127/79 (95) 128/83 (98) 126/83 (97) Pulse Ox 93 94 94 97 06/11/18 06/11/18 06/11/18 06/11/18 20:15 20:30 20:45 21:00 Pulse 99 96 91 104 Resp 14 12 12 15 B/P (MAP) 122/84 (97) 124/83 (97) 125/82 (96) 121/84 (96) Pulse Ox 93 94 94 94 06/11/18 06/11/18 06/11/18 06/11/18 21:15 21:30 21:42 21:45 Pulse 101 101 90 105 Resp 13 16 18 16 B/P (MAP) 127/85 (99) 118/84 (95) 123/85 (98) Pulse Ox 94 95 94 94 O2 Delivery Nasal Cannula FiO2 21 06/11/18 06/11/18 06/11/18 06/11/18 22:00 22:15 22:30 22:45 Pulse 103 102 108 110 Resp 12 12 16 16 B/P (MAP) 128/81 (97) 127/86 (100) 124/83 (97) 117/82 (94) Pulse Ox 94 96 95 93 06/11/18 06/11/18 06/11/18 06/11/18 23:00 23:00 23:15 23:30 Pulse 103 108 119 Resp 22 14 12 B/P (MAP) 121/77 (92) 120/77 (91) 128/81 (97) Pulse Ox 93 94 95 O2 Delivery Room Air 06/11/18 06/12/18 06/12/1819 23:46 00:00 00:15 00:30 Temp 98.4 98.4 Pulse 126 108 107 108 Resp 21 14 14 14 B/P (MAP) 148/89 (108) 130/87 (101) 120/79 (93) 125/82 (96) Pulse Ox 96 95 95 96 06/12/18 06/12/18 06/12/18 06/12/18 00:45 01:00 01:15 01:30 Pulse 110 109 109 109 Resp 14 13 15 15 B/P (MAP) 122/81 (95) 116/77 (90) 125/84 (98) 125/80 (95) Pulse Ox 94 95 96 95 06/12/18 06/12/18 06/12/18 06/12/18 01:45 02:00 02:15 02:27 Pulse 109 112 113 108 Resp 13 15 16 18 B/P (MAP) 119/79 (92) 123/77 (92) 130/84 (99) 146/85 (105) Pulse Ox 97 97 97 99 06/12/18 06/12/18 06/12/18 06/12/18 02:30 02:38 02:45 03:00 Pulse 118 113 112 107 Resp 21 18 17 13 B/P (MAP) 87/64 (72) 118/82 (94) 129/83 (98) 125/79 (94) Pulse Ox 96 97 98 99 06/12/18 06/12/18 06/12/18 06/12/18 03:15 03:30 03:45 04:00 Pulse 109 106 113 Resp 15 13 17 B/P (MAP) 122/81 (95) 127/80 (96) 130/75 (93) Pulse Ox 99 100 93 O2 Delivery Room Air 06/12/18 06/12/18 06/12/18 06/12/18 04:00 04:15 04:30 04:45 Temp 98.7 98.7 Pulse 108 111 109 102 Resp 16 16 16 13 B/P (MAP) 127/79 (95) 135/78 (97) 127/78 (94) 127/72 (90) Pulse Ox 95 95 94 95 06/12/18 06/12/18 06/12/18 06/12/18 05:00 05:15 05:30 05:45 Pulse 100 101 120 112 Resp 12 14 22 25 B/P (MAP) 136/78 (97) 130/78 (95) 118/74 (89) 127/85 (99) Pulse Ox 96 96 97 94 06/12/18 06/12/18 06/12/18 06/12/18 06:00 06:30 06:45 07:00 Pulse 107 105 102 107 Resp 16 14 15 14 B/P (MAP) 133/82 (99) 113/78 (90) 126/72 (90) 126/74 (91) Pulse Ox 95 96 93 95 06/12/18 06/12/18 06/12/18 06/12/18 07:15 07:30 07:45 08:00 Pulse 106 117 106 Resp 16 15 13 B/P (MAP) 126/73 (90) 112/81 (91) 115/69 (84) Pulse Ox 93 92 93 O2 Delivery Room Air 06/12/18 06/12/18 06/12/18 08:01 08:15 08:30 Temp 97.7 97.7 Pulse 114 109 108 Resp 18 14 14 B/P (MAP) 129/77 (94) 111/65 (80) 114/64 (81) Pulse Ox 96 94 92 Intake and Output 06/11/18 06/11/18 06/12/18 15:00 23:00 07:00 Intake Total 29588 ml 823 ml 1228 ml Output Total 250 ml 880 ml 1035 ml Balance 17675 ml -57 ml 193 ml General: Alert, Oriented X3, Cooperative, No acute distress HEENT: Atraumatic, PERRLA, EOMI, Mucous membr. moist/pink Lungs: Clear to auscultation, Normal air movement Heart: Regular rate, Normal S1, Normal S2, No murmurs Abdomen: Soft, Other (mild tenderness to palpation umbilical area, dressing in place over ostomy, surgical incision, MAGNOLIA in place) Neuro: Normal speech, Cranial nerves 3-12 NL Psych/Mental Status: Mental status NL, Mood NL All Results(Lab/Rad) Laboratory Tests Test 06/11/18 17:00 06/11/18 17:30 06/11/18 17:33 06/12/18 05:00 White Blood Count 16.2 10^3/uL 12.9 10^3/uL Red Blood Count 4.30 10^6/uL 3.66 10^6/uL Hemoglobin 13.1 g/dL 11.2 g/dL Hematocrit 38.0 % 32.7 % Mean Corpuscular Volume 88.4 fL 89.3 fL Mean Corpuscular Hemoglobin 30.5 pg 30.6 pg Mean Corpuscular Hemoglobin Concent 34.5 g/dL 34.3 g/dL Red Cell Distribution Width 13.2 % 13.3 % Platelet Count 115 10^3/uL 146 10^3/uL Mean Platelet Volume 9.6 fL 9.6 fL Neutrophils (%) (Auto) 87.3 % 77.7 % Lymphocytes (%) (Auto) 5.0 % 12.3 % Monocytes (%) (Auto) 7.2 % 9.6 % Neutrophils # (Auto) 14.1 10^3/uL 10.0 10^3/uL Lymphocytes # (Auto) 0.8 10^3/uL 1.6 10^3/uL Monocytes # (Auto) 1.2 10^3/uL 1.2 10^3/uL Absolute Immature Granulocyte (auto 0.07 10^3 u/L 0.04 10^3 u/L Eosinophils % 0.0 % 0.0 % Basophils % 0.1 % 0.1 % Basophils # 0.0 10^3/uL 0.0 10^3/uL Eosinophil Count 0.0 10^3/uL 0.0 10^3/uL Percent Immature Gran (Cell Imm) 0.40 % 0.30 % Sodium Level 134 mmol/L 136 mmol/L Potassium Level 4.6 mmol/L 4.8 mmol/L Chloride Level 102.0 mmol/L 102.0 mmol/L Carbon Dioxide Level 18.9 mmol/L 23.6 mmol/L Anion Gap 17.7 15.2 Blood Urea Nitrogen 9 mg/dL 10 mg/dL Creatinine 0.81 mg/dL 0.96 mg/dL Estimated GFR () 120.2 98.8 BUN/Creatinine Ratio 11.0 10.0 Glucose Level 315 mg/dL 280 mg/dL Calcium Level 8.1 mg/dL 8.3 mg/dL Total Bilirubin 0.8 mg/dL 0.8 mg/dL Aspartate Amino Transf (AST/SGOT) 26 U/L 19 U/L Alanine Aminotransferase (ALT/SGPT) 33 U/L 30 U/L Alkaline Phosphatase 114 U/L 97 U/L Total Protein 6.3 g/dL 6.2 g/dL Albumin 3.0 g/dL 2.8 g/dL Globulin 3.3 3.4 Differential Total Cells Counted 100 #CELLS Segmented Neutrophils 92 % Lymphocytes 3 % Monocytes 5 % Differential Comment NORMAL Platelet Estimate ADEQUATE Platelet Morphology NORMAL Blood Morphology Comment NORMAL MORPHOLOGY Current Medications Medications (Trade) Dose Ordered Sig/Escobar Route PRN Reason Start Time Stop Time Status Last Admin Dose Admin Enoxaparin Sodium (Lovenox) 40 mg OT ONCE SQ 06/11/18 06:45 06/11/18 16:12 DC 06/11/18 06:53 Cefoxitin Sodium (Mefoxin) 1 gm STK-MED ONCE .ROUTE 06/11/18 05:55 06/11/18 05:56 DC Sodium Chloride 100 ml @ ud STK-MED ONCE IV 06/11/18 05:55 06/11/18 05:57 DC Dexamethasone Sodium Phosphate (Decadron) 4 mg STK-MED ONCE .ROUTE 06/11/18 06:46 06/11/18 06:47 DC Neostigmine Methylsulfate (Neostigmine) 10 mg STK-MED ONCE .ROUTE 06/11/18 06:46 06/11/18 06:48 DC Ondansetron HCl (Zofran) 4 mg STK-MED ONCE .ROUTE 06/11/18 06:46 06/11/18 06:48 DC Ketorolac Tromethamine (Toradol) 30 mg STK-MED ONCE .ROUTE 06/11/18 06:46 06/11/18 06:48 DC Rocuronium [place] (Zemuron) 100 mg STK-MED ONCE IV 06/11/18 06:46 06/11/18 06:48 DC Hydromorphone HCl (Dilaudid) 2 mg STK-MED ONCE .ROUTE 06/11/18 06:47 06/11/18 06:48 DC Fentanyl Citrate (Sublimaze) 100 mcg STK-MED ONCE .ROUTE 06/11/18 06:47 06/11/18 06:49 DC Propofol (Diprivan) 200 mg STK-MED ONCE IV 06/11/18 06:47 06/11/18 06:49 DC Midazolam HCl (Versed) 1 mg STK-MED ONCE .ROUTE 06/11/18 06:48 06/11/18 06:49 DC Lidocaine HCl (Lidocaine 2% Vial) 500 mg STK-MED ONCE .ROUTE 06/11/18 06:48 06/11/18 06:50 DC Sodium Chloride (Sodium Chloride) 1,000 ml STK-MED ONCE IR 06/11/18 07:00 06/11/18 07:02 DC Sterile Water (Water) 1,000 ml STK-MED ONCE .ROUTE 06/11/18 07:01 06/11/18 07:02 DC Bupivacaine HCl (Sensorcaine-Mpf 0.25% Vial) 2.5 mg STK-MED ONCE .ROUTE 06/11/18 07:01 06/11/18 07:02 DC Labetalol HCl (Trandate) 20 mg STK-MED ONCE IV 06/11/18 07:22 06/11/18 07:23 DC Sodium Chloride 1,000 ml @ ud STK-MED ONCE .ROUTE 06/11/18 08:41 06/11/18 08:42 DC Sterile Water (Water) 1,000 ml STK-MED ONCE .ROUTE 06/11/18 09:30 06/11/18 09:32 DC Sterile Water (Water) 1,000 ml STK-MED ONCE .ROUTE 06/11/18 09:46 06/11/18 09:47 DC Cefoxitin Sodium (Mefoxin) 1 gm STK-MED ONCE .ROUTE 06/11/18 10:34 06/11/18 10:35 DC Sodium Chloride 100 ml @ ud STK-MED ONCE IV 06/11/18 10:34 06/11/18 10:35 DC Sterile Water (Water) 1,000 ml STK-MED ONCE .ROUTE 06/11/18 11:04 06/11/18 11:05 DC Morphine Sulfate (Morphine Sulfate) 1 mg Q4H PRN IV PAIN 4 - 6 06/11/18 12:00 07/11/18 11:59 Morphine Sulfate (Morphine Sulfate) 3 mg Q3H PRN IV PAIN 7 - 10 06/11/18 12:00 07/11/18 11:59 06/12/18 07:48 Acetaminophen/ Hydrocodone Bitart ([place] 5mg) 1 ea Q4H PRN PO PAIN 4 - 6 06/11/18 12:00 07/11/18 11:59 06/11/18 20:50 Acetaminophen (Tylenol) 650 mg Q6 PRN PO FEVER/MILD PAIN 06/11/18 12:00 07/11/18 11:59 Pantoprazole Sodium (Protonix Iv) 40 mg DAILY IV 06/12/18 09:00 07/12/18 08:59 Simethicone (Genasyme) 80 mg Q4 PRN PO GAS/BLOATING 06/11/18 12:00 07/11/18 11:59 06/12/18 05:10 Enoxaparin Sodium (Lovenox) 40 mg DAILY@0830 SQ 06/12/18 08:30 07/12/18 08:29 Potassium Chloride/Dextrose/ Sod Cl 1,000 ml @ 125 mls/hr Q8H IV 06/11/18 11:58 07/11/18 11:57 06/11/18 20:49 Hydromorphone HCl (Dilaudid) 1 mg Q4H PRN IV PAIN 7 - 10 06/11/18 12:00 07/11/18 11:59 Cefoxitin Sodium 1 gm/Sodium Chloride 100 ml @ 100 mls/hr Q6 IV 06/11/18 12:00 06/12/18 07:17 DC 06/12/18 05:27 Sodium Chloride 1,000 ml @ [facility] ONCE .ROUTE 06/11/18 12:08 06/11/18 12:09 DC Hydromorphone HCl (Dilaudid) 0.2 mg Q5MIN PRN IV PAIN 1 - 3 06/11/18 12:30 06/11/18 16:06 DC 06/11/18 12:54 Ondansetron HCl (Zofran) 4 mg PRN PRN IV nv 06/11/18 12:30 06/11/18 16:13 DC Promethazine HCl (Phenergan) 6.25 mg PRN PRN IV NAUSEA / VOMITING 06/11/18 12:30 06/11/18 16:13 DC Diphenhydramine HCl (Benadryl) 25 mg Q5MIN PRN IV NAUSEA / VOMITING 06/11/18 12:30 06/11/18 16:06 DC Acetaminophen (Tylenol) 325 mg Q4 PRN PO FEVER 06/11/18 17:00 07/11/18 16:59 Levetiracetam (Keppra) 500 mg BID PO 06/11/18 21:00 07/11/18 20:59 06/11/18 20:51 Sertraline HCl (Zoloft) 50 mg DAILY PO 06/12/18 09:00 07/12/18 08:59 Risperidone (Risperdal) 0.5 mg DAILY24 PO 06/12/18 09:00 07/12/18 08:59 Risperidone (Risperdal) 0.75 mg HS PO 06/11/18 21:00 07/11/18 20:59 06/11/18 20:51 Insulin Human Regular (Humulin R) Give 30 minutes before meal ACHS SQ 06/11/18 17:30 07/11/18 17:29 06/11/18 21:55 Dextrose (Dextrose 50%-Water Syringe) 25 ml STAT PRN IV HYPOGLYCEMIA 06/11/18 17:00 07/11/18 16:59 Lorazepam (Ativan) 1 mg Q4HR PRN IM AGITATION 06/11/18 17:00 07/11/18 16:59 Metoclopramide HCl (Reglan) 10 mg Q6 PRN IV NAUSEA / VOMITING 06/11/18 19:00 07/11/18 18:59 06/12/18 05:10 Course Sepsis Screening Results: Posi: NEGATIVE Sepsis Qualifier/Stage: NO DEFINITE RISK Vitals & review Data Vital Sign - Last 24 Hours 06/11/18 06/11/18 06/11/18 06/11/18 12:15 12:15 12:24 12:29 Temp 98.5 98.5 98.5 98.5 98.5 98.5 Pulse 71 70 76 Resp 18 18 18 B/P (MAP) 150/96 (114) 144/94 (111) 140/90 (107) Pulse Ox 100 100 100 O2 Delivery Non-Rebreather Non-Rebreather Room Air O2 Flow Rate 10 10 5 06/11/18 06/11/18 06/11/18 06/11/18 12:40 12:50 12:59 13:10 Temp 98.8 97.7 98.4 98.7 98.8 97.7 98.4 98.7 Pulse 83 79 81 79 Resp 18 18 18 18 B/P (MAP) 147/97 (114) 140/88 (105) 148/90 (109) 145/96 (112) Pulse Ox 98 96 97 99 O2 Delivery Nasal Canula Nasal Canula Nasal Canula Nasal Canula O2 Flow Rate 2 2 2 2 06/11/18 06/11/18 06/11/18 06/11/18 13:46 13:48 13:49 14:00 Temp 98.7 98.7 Pulse 100 78 Resp 10 10 16 16 B/P (MAP) 146/96 (113) 140/93 (109) Pulse Ox 79 79 98 99 O2 Delivery Nasal Cannula O2 Flow Rate 2.00 FiO2 28 06/11/18 06/11/18 06/11/18 06/11/18 14:15 14:25 14:30 14:45 Pulse 87 84 87 Resp 16 12 13 B/P (MAP) 142/88 (106) 141/88 (105) 145/92 (109) Pulse Ox 99 99 99 O2 Delivery Nasal Cannula O2 Flow Rate 2.00 06/11/18 06/11/18 06/11/18 06/11/18 15:00 15:15 15:30 15:45 Pulse 82 87 98 84 Resp 12 16 16 16 B/P (MAP) 145/93 (110) 145/87 (106) 165/91 (115) 134/85 (101) Pulse Ox 100 100 100 100 06/11/18 06/11/18 06/11/18 06/11/18 16:00 16:15 16:30 16:45 Pulse 81 93 79 78 Resp 16 10 10 10 B/P (MAP) 131/79 (96) 144/97 (113) 139/87 (104) 134/92 (106) Pulse Ox 100 100 100 100 06/11/18 06/11/18 06/11/18 06/11/18 17:00 17:10 17:15 17:30 Pulse 96 102 105 96 Resp 21 16 15 17 B/P (MAP) 139/90 (106) 143/93 (110) 111/80 (90) 132/85 (101) Pulse Ox 97 97 92 93 06/11/18 06/11/18 06/11/18 06/11/18 17:45 18:00 18:15 18:30 Pulse 98 100 100 97 Resp 16 15 17 12 Pulse Ox 94 94 94 93 06/11/18 06/11/18 06/11/18 06/11/18 18:45 19:00 19:00 19:04 Temp 98.5 98.5 Pulse 97 98 91 Resp 13 14 12 B/P (MAP) 133/86 (102) Pulse Ox 95 96 97 O2 Delivery Nasal Cannula O2 Flow Rate 2.00 06/11/18 06/11/18 06/11/18 06/11/18 19:15 19:30 19:45 20:00 Pulse 90 92 88 96 Resp 13 14 11 16 B/P (MAP) 124/81 (95) 127/79 (95) 128/83 (98) 126/83 (97) Pulse Ox 93 94 94 97 06/11/18 06/11/18 06/11/18 06/11/18 20:15 20:30 20:45 21:00 Pulse 99 96 91 104 Resp 14 12 12 15 B/P (MAP) 122/84 (97) 124/83 (97) 125/82 (96) 121/84 (96) Pulse Ox 93 94 94 94 06/11/18 06/11/18 06/11/18 06/11/18 21:15 21:30 21:42 21:45 Pulse 101 101 90 105 Resp 13 16 18 16 B/P (MAP) 127/85 (99) 118/84 (95) 123/85 (98) Pulse Ox 94 95 94 94 O2 Delivery Nasal Cannula FiO2 21 06/11/18 06/11/18 06/11/18 06/11/18 22:00 22:15 22:30 22:45 Pulse 103 102 108 110 Resp 12 12 16 16 B/P (MAP) 128/81 (97) 127/86 (100) 124/83 (97) 117/82 (94) Pulse Ox 94 96 95 93 06/11/18 06/11/18 06/11/18 06/11/18 23:00 23:00 23:15 23:30 Pulse 103 108 119 Resp 22 14 12 B/P (MAP) 121/77 (92) 120/77 (91) 128/81 (97) Pulse Ox 93 94 95 O2 Delivery Room Air 06/11/18 06/12/18 06/12/18 06/12/18 23:46 00:00 00:15 00:30 Temp 98.4 98.4 Pulse 126 108 107 108 Resp 21 14 14 14 B/P (MAP) 148/89 (108) 130/87 (101) 120/79 (93) 125/82 (96) Pulse Ox 96 95 95 96 06/12/18 06/12/18 06/12/18 06/12/18 00:45 01:00 01:15 01:30 Pulse 110 109 109 109 Resp 14 13 15 15 B/P (MAP) 122/81 (95) 116/77 (90) 125/84 (98) 125/80 (95) Pulse Ox 94 95 96 95 06/12/18 06/12/18 06/12/18 06/12/18 01:45 02:00 02:15 02:27 Pulse 109 112 113 108 Resp 13 15 16 18 B/P (MAP) 119/79 (92) 123/77 (92) 130/84 (99) 146/85 (105) Pulse Ox 97 97 97 99 06/12/18 06/12/18 06/12/18 06/12/18 02:30 02:38 02:45 03:00 Pulse 118 113 112 107 Resp 21 18 17 13 B/P (MAP) 87/64 (72) 118/82 (94) 129/83 (98) 125/79 (94) Pulse Ox 96 97 98 99 06/12/18 06/12/18 06/12/18 06/12/18 03:15 03:30 03:45 04:00 Pulse 109 106 113 Resp 15 13 17 B/P (MAP) 122/81 (95) 127/80 (96) 130/75 (93) Pulse Ox 99 100 93 O2 Delivery Room Air 06/12/18 06/12/18 06/12/18 06/12/18 04:00 04:15 04:30 04:45 Temp 98.7 98.7 Pulse 108 111 109 102 Resp 16 16 16 13 B/P (MAP) 127/79 (95) 135/78 (97) 127/78 (94) 127/72 (90) Pulse Ox 95 95 94 95 06/12/18 06/12/18 06/12/18 06/12/18 05:00 05:15 05:30 05:45 Pulse 100 101 120 112 Resp 12 14 22 25 B/P (MAP) 136/78 (97) 130/78 (95) 118/74 (89) 127/85 (99) Pulse Ox 96 96 97 94 06/12/18 06/12/18 06/12/18 06/12/18 06:00 06:30 06:45 07:00 Pulse 107 105 102 107 Resp 16 14 15 14 B/P (MAP) 133/82 (99) 113/78 (90) 126/72 (90) 126/74 (91) Pulse Ox 95 96 93 95 06/12/18 06/12/18 06/12/18 06/12/18 07:15 07:30 07:45 08:00 Pulse 106 117 106 Resp 16 15 13 B/P (MAP) 126/73 (90) 112/81 (91) 115/69 (84) Pulse Ox 93 92 93 O2 Delivery Room Air 06/12/18 06/12/18 06/12/18 08:01 08:15 08:30 Temp 97.7 97.7 Pulse 114 109 108 Resp 18 14 14 B/P (MAP) 129/77 (94) 111/65 (80) 114/64 (81) Pulse Ox 96 94 92 Intake and Output 06/11/18 06/11/18 06/12/18 15:00 23:00 07:00 Intake Total 05218 ml 823 ml 1228 ml Output Total 250 ml 880 ml 1035 ml Balance 13441 ml -57 ml 193 ml Laboratory Tests Test 06/11/18 17:00 06/11/18 17:30 06/11/18 17:33 06/12/18 05:00 White Blood Count 16.2 10^3/uL 12.9 10^3/uL Red Blood Count 4.30 10^6/uL 3.66 10^6/uL Hemoglobin 13.1 g/dL 11.2 g/dL Hematocrit 38.0 % 32.7 % Mean Corpuscular Volume 88.4 fL 89.3 fL Mean Corpuscular Hemoglobin 30.5 pg 30.6 pg Mean Corpuscular Hemoglobin Concent 34.5 g/dL 34.3 g/dL Red Cell Distribution Width 13.2 % 13.3 % Platelet Count 115 10^3/uL 146 10^3/uL Mean Platelet Volume 9.6 fL 9.6 fL Neutrophils (%) (Auto) 87.3 % 77.7 % Lymphocytes (%) (Auto) 5.0 % 12.3 % Monocytes (%) (Auto) 7.2 % 9.6 % Neutrophils # (Auto) 14.1 10^3/uL 10.0 10^3/uL Lymphocytes # (Auto) 0.8 10^3/uL 1.6 10^3/uL Monocytes # (Auto) 1.2 10^3/uL 1.2 10^3/uL Absolute Immature Granulocyte (auto 0.07 10^3 u/L 0.04 10^3 u/L Eosinophils % 0.0 % 0.0 % Basophils % 0.1 % 0.1 % Basophils # 0.0 10^3/uL 0.0 10^3/uL Eosinophil Count 0.0 10^3/uL 0.0 10^3/uL Percent Immature Gran (Cell Imm) 0.40 % 0.30 % Sodium Level 134 mmol/L 136 mmol/L Potassium Level 4.6 mmol/L 4.8 mmol/L Chloride Level 102.0 mmol/L 102.0 mmol/L Carbon Dioxide Level 18.9 mmol/L 23.6 mmol/L Anion Gap 17.7 15.2 Blood Urea Nitrogen 9 mg/dL 10 mg/dL Creatinine 0.81 mg/dL 0.96 mg/dL Estimated GFR () 120.2 98.8 BUN/Creatinine Ratio 11.0 10.0 Glucose Level 315 mg/dL 280 mg/dL Calcium Level 8.1 mg/dL 8.3 mg/dL Total Bilirubin 0.8 mg/dL 0.8 mg/dL Aspartate Amino Transf (AST/SGOT) 26 U/L 19 U/L Alanine Aminotransferase (ALT/SGPT) 33 U/L 30 U/L Alkaline Phosphatase 114 U/L 97 U/L Total Protein 6.3 g/dL 6.2 g/dL Albumin 3.0 g/dL 2.8 g/dL Globulin 3.3 3.4 Differential Total Cells Counted 100 #CELLS Segmented Neutrophils 92 % Lymphocytes 3 % Monocytes 5 % Differential Comment NORMAL Platelet Estimate ADEQUATE Platelet Morphology NORMAL Blood Morphology Comment NORMAL MORPHOLOGY Current Medications Medications (Trade) Dose Ordered Sig/Escobar PRN Reason Start Time Stop Time Status Last Admin Acetaminophen (Tylenol) 325 mg Q4 PRN FEVER 06/11/18 17:00 07/11/18 16:59 Acetaminophen (Tylenol) 650 mg Q6 PRN FEVER/MILD PAIN 06/11/18 12:00 07/11/18 11:59 Acetaminophen/ Hydrocodone Bitart ([place] 5mg) 1 ea Q4H PRN PAIN 4 - 6 06/11/18 12:00 07/11/18 11:59 06/11/18 20:50 Dextrose (Dextrose 50%-Water Syringe) 25 ml STAT PRN HYPOGLYCEMIA 06/11/18 17:00 07/11/18 16:59 Enoxaparin Sodium (Lovenox) 40 mg DAILY@0830 06/12/18 08:30 07/12/18 08:29 Hydromorphone HCl (Dilaudid) 1 mg Q4H PRN PAIN 7 - 10 06/11/18 12:00 07/11/18 11:59 Insulin Human Regular (Humulin R) Give 30 minutes before meal ACHS 06/11/18 17:30 07/11/18 17:29 06/11/18 21:55 Levetiracetam (Keppra) 500 mg BID 06/11/18 21:00 07/11/18 20:59 06/11/18 20:51 Lorazepam (Ativan) 1 mg Q4HR PRN AGITATION 06/11/18 17:00 07/11/18 16:59 Metoclopramide HCl (Reglan) 10 mg Q6 PRN NAUSEA / VOMITING 06/11/18 19:00 07/11/18 18:59 06/12/18 05:10 Morphine Sulfate (Morphine Sulfate) 1 mg Q4H PRN PAIN 4 - 6 06/11/18 12:00 07/11/18 11:59 Morphine Sulfate (Morphine Sulfate) 3 mg Q3H PRN PAIN 7 - 10 06/11/18 12:00 07/11/18 11:59 06/12/18 07:48 Pantoprazole Sodium (Protonix Iv) 40 mg DAILY 06/12/18 09:00 07/12/18 08:59 Potassium Chloride/Dextrose/ Sod Cl 1,000 ml @ 125 mls/hr Q8H 06/11/18 11:58 07/11/18 11:57 06/11/18 20:49 Risperidone (Risperdal) 0.5 mg DAILY24 06/12/18 09:00 07/12/18 08:59 Risperidone (Risperdal) 0.75 mg HS 06/11/18 21:00 07/11/18 20:59 06/11/18 20:51 Sertraline HCl (Zoloft) 50 mg DAILY 06/12/18 09:00 07/12/18 08:59 Simethicone (Genasyme) 80 mg Q4 PRN GAS/BLOATING 06/11/18 12:00 07/11/18 11:59 06/12/18 05:10 Sepsis Infection Criteria Pres: None LEVEL 1 SEPSIS INFECTION CRITE: Abdominal Pain, Recent Invasive Procedure LEVEL 2-SIRS (LIST ALL THAT AP: HR>90/min Cardiovascular Evidence: Not Assessed or None Hematologic Evidence: None/Not assessed Hepatic Evidence: None/Not assessed Metabolic Evidence: None/Not assessed Neurological Evidence: None/Not assessed Respiratory Evidence: None/Not assessed Renal Evidence: None/Not assessed O2 Sat by Pulse Oximetry: 97 Oxygen Flow Rate: 2.00 Assessment/Plan Assessment/Plan Assessment/Plan 1. Colostomy Reversal - POD#7. Cont pain control, - Continue IV Abx. - ADAT per Dr. Aragon - Increase pulm hygiene, activity. - Had a BM last night. - Activity critically important for him. - Greatly appreciate Dr. Aragon. 2. DM: Resume Lantus at 26 units.. MDSSI to cover for now. - Will likely need to increase dose when his po intake increases. 3. Seizure Disorder: cont Keppra, - Ativan PRN 4. Generalized Anxiety Disorder: I think this is contributing to him not feeling well currently. - restart SSRI, Ativan PRN. Holding Xanax. - Will also add Celexa 20 mg daily for better Norepinephrine coverage. 5. HTN - Start Losartan and also Metoprolol for HR control. 6. GERD: cont PPI 7. PPx: Lovenox, PPI Plan PRIYANKA WAY MD Jun 18, 2018 10:38
--- NOTE | 2018-06-18 11:20 | NUR ---
Report Called Report to [facility].
[2018-06-18 14:10] VITALS: BP 128/85
== END 2018-06-18 13:55 | DRG 223 ==
LOC: SDC 06:00 → ICU 08:00 → EDSTATUS 08:00 → MS 06-13 14:10 → EDPENDDISTM 06-18 10:50 → EDPENDDISDT 06-18 10:50 → EDPENDDISTM 06-18 13:50
PROVIDERS: ADMIT Family Medicine; ATTEND Family Medicine
PROC: 0DSN0ZZ Reposition Sigmoid Colon, Open Approach (ICD-10-PCS; 2018-06-11)
PROC: 0D9E8ZZ Drainage of Large Intestine, Via Natural or Artificial Opening Endoscopic (ICD-10-PCS; principal; 2018-06-11 07:58)
PROC: 0DJD8ZZ Inspection of Lower Intestinal Tract, Via Natural or Artificial Opening Endoscopic (ICD-10-PCS; 2018-06-11 07:58)
DX: Z43.3 Encounter for attention to colostomy (principal); E44.0 Moderate protein-calorie malnutrition; E11.42 Type 2 diabetes mellitus with diabetic polyneuropathy; G82.20 Paraplegia, unspecified; R65.10 Systemic inflammatory response syndrome (SIRS) of non-infectious origin without acute organ dysfunction; E83.42 Hypomagnesemia; K56.7 Ileus, unspecified; E11.65 Type 2 diabetes mellitus with hyperglycemia; F41.1 Generalized anxiety disorder; K57.30 Diverticulosis of large intestine without perforation or abscess without bleeding; G40.909 Epilepsy, unspecified, not intractable, without status epilepticus; I10 Essential (primary) hypertension; G89.29 Other chronic pain; K21.9 Gastro-esophageal reflux disease without esophagitis; Z53.31 Laparoscopic surgical procedure converted to open procedure; Z79.4 Long term (current) use of insulin; Z87.891 Personal history of nicotine dependence; Z85.828 Personal history of other malignant neoplasm of skin; Z83.3 Family history of diabetes mellitus; Z80.8 Family history of malignant neoplasm of other organs or systems; Z68.29 Body mass index [BMI] 29.0-29.9, adult
CPT/HCPCS: 36415; 74019; 80048; 80053; 82948; 83735; 85025; 85027; 85610; 85730; 86900; 88305; A4217; C9113; G0378; J1100; J1170; J1650; J1815; J1885; J2001; J2250; J2270; J2405; J2710; J2765; J3010; J3475; J3490; J7030; J7050; J7070; J7120; A9270; J0694; J8597